=== PATIENT | female | born 1960 | race Caucasian/White ===

== ENCOUNTER → 2020-03-16 13:37 | Outpatient (BNVA) | payer OTHER, SELFPAY | PROVIDERS: PCP Family Medicine; Referring Provider Family Medicine; Visit Provider Physician Assistant | DX: K59.09 Other constipation (principal); Z86.010 Personal history of colon polyps; Z87.19 Personal history of other diseases of the digestive system | CPT/HCPCS: Q3014 ==

== ENCOUNTER 2020-05-03 08:39 | Day surgery (SDC) | payer OTHER, SELFPAY ==
[2020-04-25 11:26] VITALS: BMI 32.3
--- NOTE | 2020-05-02 12:42 | HO.ANESPROP2 ---
Documented by User: Richa Littlejohn 05/02/20 12:43 HPI - Anesthesia Eval Consult details Narrative: 60yo F for Colonoscopy PMFSH Past Medical History Medical History Asthma Chronic pain Colon polyp High cholesterol History of fatty infiltration of liver Hx of cervical cancer Hypothyroid Leukopenia Macular degeneration ANCA on CPAP Family History Family History Father No problems noted. Mother No problems noted. Daughter No problems noted. Son No problems noted. Surgical History Surgical History History of back surgery History of excision of mass History of total abdominal hysterectomy and bilateral salpingo-oophorectomy Hx of colonoscopy Hx of tubal ligation Social History Social History Household Members: None Alcohol intake: current Alcohol intake frequency: does not drink Smoking Status: Former smoker Smoking Quit Date: 1991 Use of substances other than those prescribed or required for medical reasons: No Advance Directives: No Advance Directives Information Provided: No Advance Directives on File: No Current occupational status: retired and disabled Meds Allergies Allergy/AdvReac Type Severity Reaction Status Date / Time No Known Allergies Allergy Verified 05/03/20 09:24 [No Known Allergies*] Home Medications Medication Instructions Recorded Confirmed Type acetaminophen 650 mg 650 mg PO Q8H PRN 03/16/20 05/03/20 History tablet,extended release albuterol sulfate 90 mcg/actuation 1 inh INHALATION QID 03/16/20 04/25/20 History aerosol inhaler aspirin 81 mg tablet,delayed 81 mg PO DAILY 03/16/20 04/25/20 History release atorvastatin 10 mg tablet 10 mg PO DAILY 03/16/20 04/25/20 History baclofen 20 mg tablet 20 mg PO DAILY 03/16/20 04/25/20 History bupropion HCl 300 mg 24 hr tablet, 300 mg PO QAM 03/16/20 04/25/20 History extended release calcium carbonate 600 mg (1,500 1 tab PO DAILY 03/16/20 History mg)-vitamin D3 400 unit tablet cholecalciferol (vitamin D3) 50 50 mcg PO DAILY 03/16/20 04/25/20 History mcg (2,000 unit) tablet diclofenac sodium 50 mg 50 mg PO DAILY 03/16/20 04/25/20 History tablet,delayed release docusate sodium 100 mg capsule 100 mg PO DAILY 03/16/20 04/25/20 History gabapentin 300 mg capsule 300 mg PO BID 03/16/20 04/25/20 History levothyroxine 112 mcg tablet 112 mcg PO DAILY 03/16/20 04/25/20 History loratadine 10 mg tablet 10 mg PO DAILY 03/16/20 04/25/20 History omega 9-trc-fdy-fish oil 300 1 cap PO DAILY 03/16/20 History mg-1,000 mg capsule omeprazole 20 mg capsule,delayed 20 mg PO DAILY 03/16/20 04/25/20 History release polyethylene glycol 3350 17 1 g PO DAILY 03/16/20 History gram/dose oral powder Exam Exam Date and Time: May 02, 2020 1242 Height,Weight and Vital Signs: Height 5 ft 10 in Weight 102.058 kg Assessment and Plan Assessment Anesthesia Assessment: Chart Reviewed Documented by User: Mercy Putnam 05/03/20 11:05 [facility] [place] Past Medical History Medical History Asthma Chronic pain Colon polyp High cholesterol History of fatty infiltration of liver Hx of cervical cancer Hypothyroid Leukopenia Macular degeneration ANCA on CPAP Family History Family History Father No problems noted. Mother No problems noted. Daughter No problems noted. Son No problems noted. Family history of problems with anesthesia: No Surgical History Surgical History History of back surgery History of excision of mass History of total abdominal hysterectomy and bilateral salpingo-oophorectomy Hx of colonoscopy Hx of tubal ligation History of Problems with Anesthesia: Yes (Slow awakening after hysterectomy) Social History Social History Household Members: None Alcohol intake: current Alcohol intake frequency: does not drink Smoking Status: Former smoker Smoking Quit Date: 1991 Use of substances other than those prescribed or required for medical reasons: No Advance Directives: No Advance Directives Information Provided: No Advance Directives on File: No Current occupational status: retired and disabled Meds Allergies Allergy/AdvReac Type Severity Reaction Status Date / Time No Known Allergies Allergy Verified 05/03/20 09:24 [No Known Allergies*] Home Medications Medication Instructions Recorded Confirmed Type acetaminophen 650 mg 650 mg PO Q8H PRN 03/16/20 05/03/20 History tablet,extended release albuterol sulfate 90 mcg/actuation 1 inh INHALATION QID 03/16/20 04/25/20 History aerosol inhaler aspirin 81 mg tablet,delayed 81 mg PO DAILY 03/16/20 04/25/20 History release atorvastatin 10 mg tablet 10 mg PO DAILY 03/16/20 04/25/20 History baclofen 20 mg tablet 20 mg PO DAILY 03/16/20 04/25/20 History bupropion HCl 300 mg 24 hr tablet, 300 mg PO QAM 03/16/20 04/25/20 History extended release calcium carbonate 600 mg (1,500 1 tab PO DAILY 03/16/20 History mg)-vitamin D3 400 unit tablet cholecalciferol (vitamin D3) 50 50 mcg PO DAILY 03/16/20 04/25/20 History mcg (2,000 unit) tablet diclofenac sodium 50 mg 50 mg PO DAILY 03/16/20 04/25/20 History tablet,delayed release docusate sodium 100 mg capsule 100 mg PO DAILY 03/16/20 04/25/20 History gabapentin 300 mg capsule 300 mg PO BID 03/16/20 04/25/20 History levothyroxine 112 mcg tablet 112 mcg PO DAILY 03/16/20 04/25/20 History loratadine 10 mg tablet 10 mg PO DAILY 03/16/20 04/25/20 History omega 2-dqb-xwq-fish oil 300 1 cap PO DAILY 03/16/20 History mg-1,000 mg capsule omeprazole 20 mg capsule,delayed 20 mg PO DAILY 03/16/20 04/25/20 History release polyethylene glycol 3350 17 1 g PO DAILY 03/16/20 History gram/dose oral powder Exam Height,Weight and Vital Signs: Vital Signs Temp Pulse Resp BP Pulse Ox 05/03/20 09:26 97.7 F 75 18 146/80 H 98 Pertinent Lab Results Pertinent Lab Results: Airway Mallampati Class: II TM Dist: >3cm Neck ROM: Full Partial: Upper and Lower Heart: RRR Lungs: CTAB Assessment and Plan Assessment Anesthesia Assessment: Anesthesia Plan Discussed and Chart Reviewed Final Anesthetic Review NPO: Yes ASA Class: III Final Preanesthetic Review: No Changes in Pt Med Stat, Meds/Allgs Chart Reviewed, Consent Obtained/Reviewed and Anes Risks/Benef Reviewed Patient Risk: Intermediate Procedure Risk: Low Assessment/Block/Sedation in SS: Assess/Block/Sedation-SS Anesthetic Plan Anesthetic Plan: MAC: Disposition: Standard PACU
[2020-05-03 09:26] VITALS: BP 146/80; PULSE 75; RESP 18; TEMP 36.5; O2SAT 98
[2020-05-03] MEDS: Lactated Ringers 1,000 ML 100 ML IVCONT (09:32)
--- NOTE | 2020-05-03 10:37 | W.PM.OPN ---
Operative Note Operative Note Date of Service: 05/03/20 Narrative: Pre-op diagnosis: Colon cancer screening, hx of colon polyps Post-op diagnosis: other (diverticulosis, hemorrhoids) Procedure: COLONOSCOPY TILL CECUM Consent: Indications for the procedure and potential complications of bleeding, perforation, reaction to medications and missed diagnosis were discussed with the patient and informed consent was obtained. Instrument: Olympus PCF H 190 L variable stiffness pediatric colonoscope Monitoring: Vital signs and clinical assessment, intermittent blood pressure monitoring, continuous EKG monitoring, Pulse oximetry and Carbon Dioxide monitoring were done throughout the procedure. Colon withdrawl time was 22 minutes. Procedure: The patient was placed in the left lateral decubitis position and pre-procedure medications were administered. After a digital rectal examination of the ano-rectum, the video colonoscope was inserted into the rectum and advanced through the colon to the cecum. The colonoscope was slowly withdrawn in a retrograde panoramic fashion and the colon mucosa was carefully examined including a retroflexed view of the rectum. Findings and interventions are described below. Procedure Difficulty: LLQ pressure applied to intubate the transverse colon/cecum Findings: Terminal Ileum: Not evaluated Cecum: Normal Ascending Colon: Normal Transverse Colon: Normal Descending Colon: Normal Sigmoid Colon: Moderate diverticulosis Rectum: Normal Ano-rectum: Moderate internal hemorrhoids Colon preparation: Good Impression and Post Procedure Diagnosis: Colonoscopy Findings: No polyps were detected. Moderate diverticulosis seen in the sigmoid colon Moderate hemorrhoids on retroflexed exam. Plan: Await pathology results Patient has an appointment on 05/11/19 in the [facility] with SUZIE Davenport . Repeat Colonoscopy in 5 years due to past hx of adenomatous colon polyps. Above findings were reviewed with the patient and diverticulosis handout was given in the discharge area Surgeon: Shiraz Mcdonough MD Anesthesia: MAC (Shelly Ge) Estimated blood loss (mL): 0 Pathology: none sent Condition: stable Disposition: PACU
--- NOTE | 2020-05-03 10:37 | MHC.SHP ---
Pre-Procedural Eval Section A The patient is an INPATIENT: No The History & Physical has been completed within 30 days and I have reviewed it.: No Section B Chief Complaint: Colon Polyps Details of Present Illness: colon cancer screening, hx of colon polyps, constipation Relevant Family History (Specify if Yes): No Relevant Social History: None Present Medications: see Short Stay Collaborative assessment Medical History: Significant History (Asthma Chronic pain Colon polyp) History of Previous Operations: Relevant previous surgery/procedure and date(s) (History of back surgery Hx of colonoscopy) Allergies: Allergies Allergy/AdvReac Type Severity Reaction Status Date / Time No Known Allergies Allergy Verified 05/03/20 09:24 [No Known Allergies*] Review of Systems Sugical H&P ROS: Negative: Constitution, Cardiovascular, Respiratory and Gastrointestinal Exam Surgical H&P Exam: Normal: Heart, Normal: Lungs, Normal: Extremities and Normal: Abdomen Plan Diagnosis/Plan: Unchanged I have reviewed the history and physical and performed a pertinent physical examination on my patient. No changes have occurred unless specified.
[2020-05-03 11:31] VITALS: BP 107/58; PULSE 75; RESP 16; TEMP 36.2; O2SAT 96
[2020-05-03 11:50] VITALS: BP 118/73; PULSE 70; RESP 20; TEMP 36.2; O2SAT 99
--- NOTE | 2020-05-03 12:05 | HO.POSTANES ---
Post Anesthesia Evaluation Post Anesthesia Evaluation Vital Signs: Vital Signs Temp Pulse Resp BP Pulse Ox 05/03/20 11:50 97.1 F 70 20 118/73 99 05/03/20 11:31 97.1 F 75 16 107/58 L 96 05/03/20 09:26 97.7 F 75 18 146/80 H 98 Anesthesia: Monitored Mental Status: Awake Pain Control: Satisfactory Nausea/Vomiting: None Hydration: Adequate Anesthesia-Related Issues: No Anes. Related Issues
== END 2020-05-03 12:05 | disposition home or self-care (01) ==
PROVIDERS: PCP Family Medicine; Visit Provider Internal Medicine Gastroenterology
PROC: 0DJD8ZZ Inspection of Lower Intestinal Tract, Via Natural or Artificial Opening Endoscopic (ICD-10-PCS; CPT 45378; principal; 2020-05-03 09:50)
DX: Z12.11 Encounter for screening for malignant neoplasm of colon (principal); Z86.010 Personal history of colon polyps; K57.30 Diverticulosis of large intestine without perforation or abscess without bleeding; K64.8 Other hemorrhoids; G47.33 Obstructive sleep apnea (adult) (pediatric); J45.909 Unspecified asthma, uncomplicated; D72.819 Decreased white blood cell count, unspecified; Z85.41 Personal history of malignant neoplasm of cervix uteri; Z87.891 Personal history of nicotine dependence; Z79.82 Long term (current) use of aspirin; Z79.899 Other long term (current) drug therapy
CPT/HCPCS: G0105

== ENCOUNTER → 2020-05-11 13:35 | Outpatient (BNVA) | payer OTHER, SELFPAY | PROVIDERS: PCP Family Medicine; Visit Provider Physician Assistant | DX: Z76.89 Persons encountering health services in other specified circumstances (principal) | CPT/HCPCS: Q3014 ==

== ENCOUNTER 2020-09-22 14:50 | Outpatient (REF) | payer OTHER, SELFPAY ==
--- NOTE | ~2020-09-22 | CT_ITS ---
EXAMINATION: CT CHEST WITHOUT CONTRAST CLINICAL INFORMATION: Solitary pulmonary nodule. COMPARISON: CT chest 04/08/2019. TECHNIQUE: Multidetector volumetric CT imaging of the chest was done. Axial MIP volume rendering provided. Sagittal and coronal reformatted images were obtained. This CT examination was performed using dose optimization techniques as appropriate, variously including the following: *Automated exposure control *Adjustment of mA and/or kV according to patient size (this includes techniques or standardized protocols for targeted exams where dose is matched to indication/reason for exam; i.e. extremities or head) *Use of iterative reconstruction technique DLP: 439 mGy-cm FINDINGS: HEAD OF PRECISION TARGETING: Unremarkable. LUNGS: There are small bilateral pulmonary nodules. The largest pulmonary nodules to mention a few, 4 mm nodule left lower lobe lateral segment image 211/5 and a 4 mm nodule right upper lobe axial image 160/5. There are 1 mm noncalcified nodules in left upper lobe and right lower lobe. The lungs are expanded without acute process. MEDIASTINUM: The thyroid lobes are symmetrical and normal. Heart size and the great vessels are normal caliber. No pericardial effusion seen. No abnormal-sized lymph node seen. PLEURA: There is no pleural effusion. No pleural mass or thickening. AXILLA: Small shotty bilateral axillary lymph nodes are seen. UPPER ABDOMEN: Visualized liver, spleen, pancreas and bilateral adrenal glands are unremarkable. OSSEOUS STRUCTURES: No lytic or sclerotic process seen. CT/CT chest wo con IMPRESSION: Stable bilateral pulmonary nodules. No new nodule seen.
== END 2020-09-22 14:51 | disposition home or self-care (01) ==
LOC: HO.CT 14:50
PROVIDERS: Visit Provider Family Medicine
DX: R91.1 Solitary pulmonary nodule (principal)
CPT/HCPCS: 71250

== ENCOUNTER 2020-10-07 15:32 | Outpatient (REF) | payer OTHER, SELFPAY ==
--- NOTE | ~2020-10-07 | MM_ITS ---
EXAMINATION: MM SCREENING DIGITAL BREAST TOMOSYNTHESIS, BILATERAL CLINICAL INFORMATION: Screening. Asymptomatic. The lifetime risk of breast cancer based on the Tyrer-Cuzick Model is 9%. COMPARISON: Mammography: 04/02/2019, 12/02/2017, 03/14/2017 TECHNIQUE: Digital breast tomosynthesis is performed in both the craniocaudal and mediolateral oblique views along with computer-aided detection (CAD). Synthesized 2D images are generated from the tomosynthesis. FINDINGS: There are scattered areas of fibroglandular density (ACR BI-RADS breast composition Category b). There is inhomogeneous asymmetric fibroglandular pattern similar to prior studies without developing density or interval mass or architectural abnormality. Scattered small nodularity anterior upper right breast and lower outer left breast are stable. There are no abnormal calcifications. Biopsy clip marker again noted posterior 5:00 right breast. The axilla and skin contours are unremarkable. MM/MM tomosynthesis screening BI IMPRESSION: No significant changes from prior studies. ASSESSMENT: BI-RADS 2: Benign RECOMMENDATION: Routine annual mammography screening. This patient's information was entered into a reminder system with a target due date for their next mammogram.
== END 2020-10-07 15:33 | disposition home or self-care (01) ==
LOC: HO.MAMMO 15:32
PROVIDERS: Visit Provider Family Medicine
DX: Z12.31 Encounter for screening mammogram for malignant neoplasm of breast (principal)
CPT/HCPCS: 77063; 77067

== ENCOUNTER 2021-02-14 14:28 | Outpatient (REF) | payer OTHER, SELFPAY ==
--- NOTE | ~2021-02-14 | MM_ITS ---
EXAMINATION: MM DIAGNOSTIC DIGITAL BREAST TOMOSYNTHESIS, LEFT US DIAGNOSTIC ULTRASOUND BREAST, LEFT CLINICAL INFORMATION: 1-2 month history palpable finding noted by patient 12:00 left breast several centimeters in length. Tenderness. The lifetime risk of breast cancer based on the Tyrer-Cuzick Model is 5%. COMPARISON: Mammography: 10/07/2020, 04/02/2019, 12/02/2017, 03/14/2017 TECHNIQUE: Digital breast tomosynthesis is performed in both the craniocaudal and mediolateral oblique views along with computer-aided detection (CAD). Synthesized 2D images are generated from the tomosynthesis. Ultrasound left breast is targeted to the area of clinical concern. Grayscale imaging and color Doppler are performed without and with harmonics. Patient is imaged supine and upright. Patient is able to point to area of concern at time of imaging. FINDINGS: There are scattered areas of fibroglandular density (ACR BI-RADS breast composition Category b). Parenchymal pattern is similar to prior studies. There is no interval mass or architectural abnormality. No abnormal calcifications. No skin thickening or coarsening of the Andrés's ligaments. No significant changes. Ultrasound demonstrates no cystic or solid mass or architectural abnormality. No focal duct ectasia. No skin thickening or edema tracking in soft tissue planes. Results are discussed with the patient and her daughter at time of visit. There is no imaging correlate for patient's symptoms. Patient should be managed based on the clinical impression. If clinically indicated, further evaluation may be considered with surgical consult. Decision to proceed with biopsy should be based on clinical grounds and degree of clinical concern. MM/MM tomosynthesis diagnostic LT IMPRESSION: 1. No significant mammographic changes from prior studies. 2. Unremarkable targeted left breast ultrasound. ASSESSMENT: BI-RADS 1: Negative RECOMMENDATION: 1. Patient should be managed based on the clinical impression. If clinically indicated, further evaluation may be considered with surgical consult. Decision to proceed with biopsy should be based on clinical grounds and degree of clinical concern. 2. Otherwise, routine annual screening mammography. This patient's information was entered into a reminder system with a target due date for their next mammogram.
== END 2021-02-14 14:29 | disposition home or self-care (01) ==
LOC: HO.MAMMO 14:28
PROVIDERS: Visit Provider Family Medicine
DX: N63.25 Unspecified lump in the left breast, overlapping quadrants (principal)
CPT/HCPCS: 76642; 77061; 77065

== ENCOUNTER 2021-02-27 09:56 | Outpatient (REF) | payer OTHER, SELFPAY ==
--- NOTE | ~2021-02-27 | MR_ITS ---
EXAMINATION: MR LUMBAR SPINE WITHOUT AND WITH CONTRAST CLINICAL INFORMATION: 61-year-old with complaints of low back pain and lumbar radicular symptoms. History of previous laminectomy. COMPARISON: None. TECHNIQUE: MRI of the lumbar spine was obtained using routine sequences with and without contrast. Intravenous contrast: Gadavist 10 mL FINDINGS: Coronal Alignment: There is S-shaped thoracolumbar scoliosis, convex to the left at L4-L5 and to the right at L2-L3 with partially visualized lower thoracic levocurvature. Sagittal Alignment: There is 2 mm of grade 1 spondylolisthesis at L5-S1. There is trace retrolisthesis at L2-L3 and L1-L2. Lordotic curvature is maintained. Lumbosacral Junction: Normal. Vertebral Bodies: Mild chronic loss of height of the posterior aspect of the L5 vertebral body is noted. Otherwise the remaining vertebral body heights are well-maintained. Disc Spaces and Endplates: Moderate disc space height loss with intradiscal degenerative signal changes, including probable intradiscal vacuum disc phenomenon noted at L5-S1 with hfec-gn-klqnwupc spondylosis and Schmorl's nodes. Severe disc space height loss asymmetric to the left at L2-L3 with intradiscal degenerative signal changes and probable intradiscal vacuum disc phenomenon with Schmorl's nodes and bvsw-ye-ntpaowhb spondylosis. Moderate disc space height loss, intradiscal degenerative signal changes and probable intradiscal vacuum disc phenomenon at L1-L2 with Schmorl's nodes and mild spondylosis. Spinal Canal: There is moderate diffuse epidural lipomatosis throughout the lumbar canal with a constricted, narrowed appearance to the thecal sac and short pedicles consistent with a component of a developmental lumbar spinal canal stenosis. Bone Marrow: Type I marrow signal changes along the endplates at L1-L2, type I and type II marrow signal changes along the endplates at L2-L3. Mild marrow edema noted in the right S1 pedicle adjacent to the facet joint. Conus Medullaris: Terminates at L1-L2. Morphology and signal is normal. No abnormal enhancement. Intradural Nerve Roots: Limited assessment due to motion artifact on the axial T2-weighted images. No abnormal intradural enhancement. L5-S1: Mild grade 1 spondylolisthesis noted with evidence of a previous left-sided hemilaminectomy, with enhancing scar tissue in the left laminectomy defect. Prominent epidural fat at this level with a relatively small thecal sac. Unroofing of the posterior disc margin is noted with diffuse disc bulging and paravertebral/posterolateral disc osteophyte complex bilaterally. There is evidence of a partial facetectomy on the left. There is moderate facet arthropathy on the right. There is severe bilateral neural foraminal stenosis with bilateral L5 nerve root impingement. L4-L5: Mild disc bulging noted, with moderate facet arthropathy and ligamentum flavum thickening with epidural lipomatosis and moderate fatty spinal stenosis. There is bilateral facet arthrosis, with right lateral disc osteophyte complex and moderate right-sided with mild left-sided neural foraminal stenosis. There is a small enhancing synovial cyst arising along the posteroinferior margin of the left facet joint. L3-L4: There are small inferior foraminal disc protrusions noted bilaterally with ligamentum flavum thickening and moderate bilateral facet hypertrophic degenerative change with epidural lipomatosis and mild fatty spinal stenosis. There is moderate right-sided and mild left-sided neural foraminal stenosis. L2-L3: Trace retrolisthesis noted with posterolateral disc osteophyte complex asymmetric to the left with a superimposed left foraminal/extra foraminal disc herniation. Ligamentum flavum thickening is noted with moderate left-sided facet arthropathy. Prominent epidural fat is also noted with mild central spinal canal stenosis. There is moderate left and mild right-sided neural foraminal stenosis, with disc herniation impinging on the exiting left L2 nerve root. L1-L2: There are subarticular disc protrusion bilaterally and small left foraminal disc protrusion with mild ligamentum flavum thickening and mild facet arthrosis. Prominent epidural fat posteriorly. No significant spinal canal stenosis. There is moderate left-sided and iegu-hw-yudxflci right-sided neural foraminal stenosis. There is ltre-yl-krczsgoc facet arthropathy on the right at T12-L1 with mild ligamentum flavum thickening without canal or neuroforaminal stenosis. There is bilateral facet arthrosis at T11-T12 and T10-T11 with moderate right-sided neural foraminal stenosis and mild left-sided neural foraminal stenosis at these levels. Paraspinal/Retroperitoneal: The paravertebral soft tissues demonstrate postsurgical changes posterior to the lumbar spinous processes. There is a 1 cm simple-appearing cyst in the mid right kidney. Limited assessment. No specific follow-up for this is recommended based on the current ACR best practice guidelines. MR/MR lumbar spine wo/w con IMPRESSION: 1. Multilevel DDD and spondylosis, with the grade 1 spondylolisthesis at L5-S1 and mild retrolisthesis at L1-L2 and L2-L3. 2. Postsurgical changes on the left at L5-S1 as described above. 3. Epidural lipomatosis throughout the lumbar canal with some degree of developmental lumbar spinal canal stenosis with superimposed multilevel disc bulging and posterior element hypertrophic degenerative changes as described above, with zngu-hb-wrikocer degrees of spinal canal stenosis. 4. Multilevel bilateral neural foraminal stenosis, severe bilaterally at L5-S1 with bilateral L5 nerve root impingement and to a lesser degree at the levels noted above. Left lateral foraminal/extraforaminal disc herniation at L2-L3 encroaches on the exiting left L2 nerve root.
[2021-02-27 10:25] LABS: Blood Urea Nitrogen 20 mg/dL (9-16); Estimated Glomerular Filt Rate 56
== END 2021-02-27 09:57 | disposition home or self-care (01) ==
LOC: HO.MRI 09:56
PROVIDERS: Visit Provider Family Medicine
DX: Z00.00 Encounter for general adult medical examination without abnormal findings (principal); R32 Unspecified urinary incontinence; K76.0 Fatty (change of) liver, not elsewhere classified; E78.5 Hyperlipidemia, unspecified; M54.16 Radiculopathy, lumbar region
CPT/HCPCS: 36415; 72158; 82565; 84520; A9585

== ENCOUNTER 2021-11-09 15:07 | Outpatient (REF) | payer OTHER, SELFPAY ==
--- NOTE | ~2021-11-09 | XR_ITS ---
EXAMINATION: XR ELBOW, RIGHT CLINICAL INFORMATION: Pain and swelling. COMPARISON: None TECHNIQUE: AP, lateral, and oblique views of the right elbow. FINDINGS: The bones and soft tissues are normal. No fracture or joint effusion. Alignment is anatomic. Joint spaces are maintained. XR/XR elbow RT min 3V IMPRESSION: Normal right elbow.
--- NOTE | ~2021-11-09 | CT_ITS ---
EXAMINATION: CT CHEST WITHOUT CONTRAST CLINICAL INFORMATION: Follow-up pulmonary nodules COMPARISON: CT chest 09/22/2020 TECHNIQUE: Multidetector volumetric CT imaging of the chest was done. Axial MIP volume rendering provided. Sagittal and coronal reformatted images were obtained. This CT examination was performed using dose optimization techniques as appropriate, variously including the following: *Automated exposure control *Adjustment of mA and/or kV according to patient size (this includes techniques or standardized protocols for targeted exams where dose is matched to indication/reason for exam; i.e. extremities or head) *Use of iterative reconstruction technique DLP: 199 mGy-cm FINDINGS: PERSONAL COACH: Well-inflated lungs. LUNGS: The lungs are well Inflated without any acute pneumonic process. There are several small pulmonary nodules seen bilaterally. The largest nodule measures 4 mm in the lingula on axial image 251/7 and not in the left lower lobe as mentioned previously it is stable. A 4 mm nodule is seen in the right upper lobe axial image 179/7, stable. There are 1-2 mm calcified and noncalcified nodules in both lungs. No new nodules are visualized. MEDIASTINUM: Heart size and the great vessels are normal caliber. No abnormal size mediastinal or hilar lymph nodes seen. There is no pericardial effusion. The central trachea and the bronchi R widely patent. The thyroid lobes are symmetrical and normal. PLEURA: There is no pleural effusion. No pleural mass or thickening. AXILLA: No lymphadenopathy. UPPER ABDOMEN: Visualized liver, spleen, pancreas, gallbladder and left adrenal gland is unremarkable OSSEOUS STRUCTURES: Degenerative disc changes at all thoracic disc levels. No aggressive lytic or sclerotic process seen. CT/CT chest wo con IMPRESSION: Stable bilateral pulmonary nodules. No new pulmonary nodules. No abnormal chest adenopathy. Fleischner guidelines were followed.
== END 2021-11-09 15:08 | disposition home or self-care (01) ==
LOC: HO.CT 15:07
PROVIDERS: Absent Provider Nurse Practitioner; PCP Nurse Practitioner; Visit Provider Family Medicine
DX: M25.521 Pain in right elbow (principal); R91.1 Solitary pulmonary nodule; R60.0 Localized edema
CPT/HCPCS: 71250; 73080

== ENCOUNTER 2021-11-24 08:02 | Outpatient (REF) | payer OTHER, SELFPAY ==
--- NOTE | ~2021-11-24 | US_ITS ---
EXAMINATION: US ABDOMEN COMPLETE CLINICAL INFORMATION: Fatty liver. COMPARISON: Ultrasound abdomen complete dated 04/16/2019 and 12/07/2016. CT abdomen and pelvis with contrast dated 08/14/2018. TECHNIQUE: Real-time imaging of the abdominal viscera. FINDINGS: PANCREAS: The head and body the pancreas are normal. The tail is well visualized due to bowel gas. ABDOMINAL AORTA: The proximal, mid, and distal segments are normal in caliber. INFERIOR VENA CAVA: Visualized portions are normal. LIVER: Liver echotexture is slightly increased. The liver is normal in size. The liver contour is normal. No focal hepatic lesion. There is no intrahepatic biliary duct dilatation seen. GALLBLADDER: Normal. The gallbladder is physiologically distended without evidence of stones, sludge, polyps, wall thickening or pericholecystic fluid. COMMON BILE DUCT: Normal in caliber measuring 0.6 cm in diameter. RIGHT KIDNEY: There are 2 cysts measuring 1 cm in the lower pole and 1.2 cm in the midpole. No hydronephrosis or renal calculi. The kidney measures 10.9 cm in maximum dimension. LEFT KIDNEY: There are 3 cysts measuring 1.6 cm in the upper pole, 1 cm in the upper pole and 1.2 cm in the lower pole and No hydronephrosis or renal calculi. The kidney measures 11.0 cm in maximum dimension. SPLEEN: Normal. The spleen measures 10.9 cm in maximum dimension. FREE FLUID: None. US/US abdomen complete IMPRESSION: Slightly echogenic liver. Limited visualization of the tail the pancreas. Bilateral renal cysts.
== END 2021-11-24 08:03 | disposition home or self-care (01) ==
LOC: HO.US 08:02
PROVIDERS: Visit Provider Family Medicine
DX: K76.0 Fatty (change of) liver, not elsewhere classified (principal)
CPT/HCPCS: 76700

== ENCOUNTER 2021-12-08 07:50 | Outpatient (REF) | payer OTHER, SELFPAY | END 2021-12-08 07:51 | disposition home or self-care (01) | LOC: HO.HOSX 07:50 | PROVIDERS: Visit Provider Physician Assistant | DX: Z13.89 Encounter for screening for other disorder (principal) ==

== ENCOUNTER 2022-02-19 13:04 | Outpatient (REF) | payer OTHER, SELFPAY ==
--- NOTE | ~2022-02-19 | MM_ITS ---
EXAMINATION: MM SCREENING DIGITAL BREAST TOMOSYNTHESIS, BILATERAL CLINICAL INFORMATION: Screening. Asymptomatic. The lifetime risk of breast cancer based on the Tyrer-Cuzick Model is 10%. COMPARISON: Mammography: February 14, 2021 and studies dating back to December 31, 2013 TECHNIQUE: Digital breast tomosynthesis is performed in both the craniocaudal and mediolateral oblique views along with computer-aided detection (CAD). Synthesized 2D images are generated from the tomosynthesis. FINDINGS: There are scattered areas of fibroglandular density (ACR BI-RADS breast composition Category b). There are no significant masses, abnormal calcifications, or other abnormalities. MM/MM tomosynthesis screening BI IMPRESSION: No significant changes from prior exam. ASSESSMENT: BI-RADS 1: Negative RECOMMENDATION: Routine annual mammography screening. This patient's information was entered into a reminder system with a target due date for their next mammogram.
== END 2022-02-19 13:05 | disposition home or self-care (01) ==
LOC: HO.MAMMO 13:04
PROVIDERS: PCP Family Medicine; Visit Provider Family Medicine
DX: Z12.31 Encounter for screening mammogram for malignant neoplasm of breast (principal)
CPT/HCPCS: 77063; 77067

== ENCOUNTER 2022-05-23 14:53 | Emergency (ER) | payer OTHER, SELFPAY ==
--- NOTE | ~2022-05-23 | XR_ITS ---
EXAMINATION: XR CHEST CLINICAL INFORMATION: Cough. Sputum production. COMPARISON: 11/18/2016 TECHNIQUE: 2 views of the chest were obtained. FINDINGS: The lungs are well expanded. There is no focal consolidation, edema, or effusion. No pneumothorax. The cardiomediastinal silhouette is within normal limits. No acute osseous abnormality. XR/XR chest 2V IMPRESSION: Clear lungs.
[2022-05-23 15:10] VITALS: BP 136/76; PULSE 85; RESP 18; TEMP 36.8; O2SAT 97; BMI 31.4
--- NOTE | 2022-05-23 15:11 | ED_ITS ---
HPI - URI/Sore Throat General Chief Complaint: Upper Respiratory Symptoms <SUZIE Goodwin Last Filed: 05/23/22 15:14> Stated Complaint: congested cough,sore throat <SUZIE Goodwin Last Filed: 05/23/22 15:14> Time Seen by Provider: 05/23/22 15:25 <SUZIE Goodwin - Last Filed: 05/23/22 15:14> Source: patient <SUZIE Alejandra Last Filed: 05/23/22 18:54> Mode of arrival: ambulatory <SUZIE Alejandra Last Filed: 05/23/22 18:54> History of Present Illness HPI Narrative: 62-year-old female with a past medical history of asthma, HLD, hypothyroid, cervical CA in remission, intermittent leukopenia, ANCA on CPAP, presenting to the ED complaining of malaise, congestion, ear pain, sore throat, subjective fever, productive cough of green/yellow sputum x 1 month. Denies SOB, CP, abdominal pain, nausea/ vomiting, decreased p.o. intake, calf pain, pedal edema, recent travel. Admits had outpatient labs recently with Dr. Redman <SUZIE Alejandra - Last Filed: 05/23/22 18:54> MD elicited complaint: fever, cough, sore throat, rhinorrhea and nasal congestion <SUZIE Alejandra Last Filed: 05/23/22 18:54> Related Data Home Medications: Home Medications Medication Instructions Recorded Confirmed acetaminophen 650 mg 650 mg PO Q8H PRN pain 03/16/20 05/21/22 tablet,extended release albuterol sulfate 90 mcg/actuation 1 inh inhalation QID 03/16/20 05/21/22 aerosol inhaler aspirin 81 mg tablet,delayed 81 mg PO DAILY 03/16/20 05/21/22 release atorvastatin 10 mg tablet 10 mg PO DAILY 03/16/20 05/21/22 baclofen 20 mg tablet 20 mg PO DAILY 03/16/20 05/21/22 bupropion HCl 300 mg 24 hr tablet, 300 mg PO QAM 03/16/20 05/21/22 extended release calcium carbonate 600 mg-vitamin 1 tab PO DAILY 03/16/20 05/21/22 D3 10 mcg (400 unit) tablet cholecalciferol (vitamin D3) 50 50 mcg PO DAILY 03/16/20 05/21/22 mcg (2,000 unit) tablet diclofenac sodium 50 mg 50 mg PO DAILY 03/16/20 05/21/22 tablet,delayed release docusate sodium 100 mg capsule 100 mg PO DAILY 03/16/20 05/21/22 (Colace) gabapentin 300 mg capsule 300 mg PO BID 03/16/20 05/21/22 levothyroxine 112 mcg tablet 125 mcg PO DAILY 03/16/20 05/21/22 loratadine 10 mg tablet 10 mg PO DAILY 03/16/20 05/21/22 omega 3-xpi-vwr-fish oil 300 1 cap PO DAILY 03/16/20 05/21/22 mg-1,000 mg capsule polyethylene glycol 3350 17 1 g PO DAILY constipation 03/16/20 05/21/22 gram/dose oral powder Centrum Silver 1 tab PO DAILY 08/18/20 05/21/22 antiox.multivit 10-rcaww2a 280 1 cap PO DAILY 08/18/20 05/21/22 mg-lutein 10 mg-zeaxanthin 2 mg capsule (I-Caps) pantoprazole 40 mg tablet,delayed 40 mg PO DAILY 05/21/22 05/21/22 release Previous Rx's Medication Instructions Recorded amoxicillin 875 mg-potassium 1 tab PO BID 7 days #14 tabs 05/23/22 clavulanate 125 mg tablet benzonatate 100 mg capsule 100 mg PO TID PRN cough #14 caps 05/23/22 fluticasone propionate 50 2 spray intranasal DAILY #16 grams 05/23/22 mcg/actuation nasal spray,suspension (Flonase Allergy Relief) prednisone 20 mg tablet 40 mg PO DAILY 5 days #10 tabs 05/23/22 <SUZIE Goodwin - Last Filed: 05/23/22 15:14> Allergies/Adverse Reactions: Allergies Allergy/AdvReac Type Severity Reaction Status Date / Time No Known Allergies Allergy Verified 05/21/22 10:26 [No Known Allergies*] <SUZIE Goodwin - Last Filed: 05/23/22 15:14> Review of Systems Review of Systems: Constitutional: +subj Fever, + Chills, +malaise, +fatigue ENT/Mouth: No Ear Pain, + Nasal Congestion, No Sinus Pain, No Hoarseness, + sore throat, + Rhinorrhea, No Swallowing Difficulty Cardiovascular: No Chest Pain, No SOB Respiratory: + Cough, + Sputum, No Wheezing Gastrointestinal: No Nausea, No Vomiting, No Diarrhea, No Constipation, No Abdominal pain Genitourinary: No Dysuria, No Flank Pain Musculoskeletal: No joint pain, No Myalgias, No Joint Swelling Skin: No Skin Lesions, No rash Neuro: No Weakness <SUZIE Alejandra - Last Filed: 05/23/22 18:54> Yes all other systems are reviewed and are negative <SUZIE Alejandra - Last Filed: 05/23/22 18:54> Constitutional: Constitutional: Reports as per HPI <SUZIE Alejandra - Last Filed: 05/23/22 18:54> [facility] Past Medical History Attestation statement: The following information was validated with the patient. <SUZIE Alejandra Last Filed: 05/23/22 18:54> Medical History: Medical History Asthma Chronic pain Colon polyp High cholesterol History of fatty infiltration of liver Hx of cervical cancer Hypothyroid Leukopenia Macular degeneration ANCA on CPAP <SUZIE Goodwin - Last Filed: 05/23/22 15:14> Surgical History: Surgical History History of back surgery History of excision of mass History of total abdominal hysterectomy and bilateral salpingo-oophorectomy Hx of colonoscopy Hx of tubal ligation <SUZIE Goodwin - Last Filed: 05/23/22 15:14> Family History Family History: Family History Father No problems noted. Mother No problems noted. Daughter No problems noted. Son No problems noted. Sister Breast cancer Colon cancer Brother Liver cancer Brother Cancer of kidney <SUZIE Goodwin - Last Filed: 05/23/22 15:14> Social History Social History: Social History Household Members: Family Housing: Apartment Are you a primary acute care assistant to a significant other at home: No Do you presently have visiting nurse or other home services: No Alcohol intake: current Alcohol intake frequency: does not drink Patient Tobacco Use Status: Never used Tobacco Advance Directives: No Advance Directives Information Provided: Yes Current occupational status: retired and disabled <SUZIE Goodwin - Last Filed: 05/23/22 15:14> Physical Exam Vital Signs: Vital Signs: Last Vital Signs Temp 98.3 F 05/23/22 15:10 Pulse 85 05/23/22 15:10 Resp 18 05/23/22 15:10 BP 136/76 05/23/22 15:10 Pulse Ox 97 05/23/22 15:10 O2 Del Method 05/23/22 15:10 BMI result Body Mass Index 31.4 <SUZIE Goodwin - Last Filed: 05/23/22 15:14> Vital Signs: Last Vital Signs Temp 98.3 F 05/23/22 15:10 Pulse 85 05/23/22 15:10 Resp 18 05/23/22 15:10 BP 136/76 05/23/22 15:10 Pulse Ox 97 05/23/22 15:10 O2 Del Method 05/23/22 15:10 BMI result Body Mass Index 31.4 <SUZIE Alejandra - Last Filed: 05/23/22 18:54> Const: General: cooperative, healthy appearing, comfortable, no acute distress, alert and awake <SUZIE Alejandra Last Filed: 05/23/22 18:54> Orientation/consciousness: patient oriented x3 <SUZIE Alejandra Last Filed: 05/23/22 18:54> Limitations: no limitations <SUZIE Alejandra Last Filed: 05/23/22 18:54> HEENT: Head: Yes normal to inspection and Yes atraumatic <SUZIE Alejandra Last Filed: 05/23/22 18:54> Ears: hearing grossly normal bilaterally, external ears normal, TM's normal bilaterally and mastoids normal <SUZIE Alejandra Last Filed: 05/23/22 18:54> General nose exam: Normal external nose present and Nasal discharge present <SUZIE Alejandra Last Filed: 05/23/22 18:54> Face and sinus: Yes normal facial exam <SUZIE Alejandra - Last Filed: 05/23/22 18:54> Mouth: Normal oral and palatal mucosa present <SUZIE Alejandra - Last Filed: 05/23/22 18:54> Throat: Yes uvula midline, No peritonsillar mass, Yes posterior oropharynx abnormal ( erythematous) and No uvular edema <SUZIE Alejandra - Last Filed: 05/23/22 18:54> Eyes: General: appearance normal, both eyes and all related structures <Brenda Mckeon PA - Last Filed: 05/23/22 18:54> EOM: EOMs intact bilaterally <Brenda Mckeon PA - Last Filed: 05/23/22 18:54> Neck: Neck: Yes normal visual inspection and Yes no meningeal signs <SUZIE Alejandra - Last Filed: 05/23/22 18:54> Resp: Effort & Inspection: normal respiratory effort and no respiratory distress <SUZIE Alejandra - Last Filed: 05/23/22 18:54> Auscultation: clear to auscultation bilaterally, no crackles, no rales, no rhonchi and no wheezes <Brenda Mckeon PA - Last Filed: 05/23/22 18:54> Cardio: Rate: regular rate <SUZIE Alejandra - Last Filed: 05/23/22 18:54> Heart sounds: S1 normal heart sound present and S2 normal heart sound present <SUZIE Alejandra - Last Filed: 05/23/22 18:54> Skin: Rashes: no rashes <Brenda Mckeon PA - Last Filed: 05/23/22 18:54> Wounds: no wounds <Brenda Mckeon PA - Last Filed: 05/23/22 18:54> Neuro: General: patient oriented x3, tone normal and no meningeal signs <SUZIE Alejandra - Last Filed: 05/23/22 18:54> Gait exam (Neuro): Normal gait present <SUZIE Alejandra - Last Filed: 05/23/22 18:54> Extrem: General: Yes normal to inspection, Yes no pedal edema and Yes no calf tenderness <SUZIE Alejandra - Last Filed: 05/23/22 18:54> Course Course Course Narrative: RME- 15:15pm 62yoF presenting to the ER with URI complaints which include chills, fatigue, malaise, nasal congestion/rhinorrhea, headaches, sore throat, productive cough for the past month which is worsening. Denies any actual measured fevers, dizziness, neck pain/stiffness, shortness of breath, chest pain, dyspnea on exertion, orthopnea, palpitations, nausea/vomiting/diarrhea, abdominal pain, lower extremity edema or calf tenderness, recent travel or sick contact or any other symptoms complaints or concerns. Plan: Will obtain chest x-ray, COVID/RSV/flu swab and rapid strep. Patient will be seen in emergency minor care. <SUZIE Goodwin - Last Filed: 05/23/22 15:14> RME- 15:15pm 62yoF presenting to the ER with URI complaints which include chills, fatigue, malaise, nasal congestion/rhinorrhea, headaches, sore throat, productive cough for the past month which is worsening. Denies any actual measured fevers, dizziness, neck pain/stiffness, shortness of breath, chest pain, dyspnea on ex ertion, orthopnea, palpitations, nausea/vomiting/diarrhea, abdominal pain, lower extremity edema or calf tenderness, recent travel or sick contact or any other symptoms complaints or concerns. Plan: Will obtain chest x-ray, COVID/RSV/flu swab and rapid strep. Patient will be seen in emergency minor care. -1620-- COVID-19/influenza/ RSV negative. Rapid strep positive. Patient given 1st dose of Augmentin and prednisone in the ED XR chest 2V IMPRESSION: Clear lungs. Results discussed with patient including worrisome signs and symptoms and strict return precautions, and when to return to the emergency department. They verbalized understanding and feel safe for discharge at this time. <SUZIE Alejandra - Last Filed: 05/23/22 18:54> Medications Administered Discontinued Medications Generic Name Dose Route Start Last Admin Trade Name Freq PRN Reason Stop Dose Admin Amoxicillin/Clavulanate Potassium 875 mg 05/23/22 15:48 05/23/22 15:52 Amoxicillin/Potassium Clav 875 Mg Tablet PO 05/23/22 15:49 875 mg ONCE ONE Administration Prednisone 40 mg 05/23/22 15:48 05/23/22 15:52 Prednisone 20 Mg Tablet PO 05/23/22 15:49 40 mg ONCE ONE Administration <SUZIE Goodwin - Last Filed: 05/23/22 15:14> Medications Administered Discontinued Medications Generic Name Dose Route Start Last Admin Trade Name Ginny PRN Reason Stop Dose Admin Amoxicillin/Clavulanate Potassium 875 mg 05/23/22 15:48 05/23/22 15:52 Amoxicillin/Potassium Clav 875 Mg Tablet PO 05/23/22 15:49 875 mg ONCE ONE Administration Prednisone 40 mg 05/23/22 15:48 05/23/22 15:52 Prednisone 20 Mg Tablet PO 05/23/22 15:49 40 mg ONCE ONE Administration <SUZIE Alejandra - Last Filed: 05/23/22 18:54> Medical Decision Making Medical Decision Making [facility] Narrative: 62-year-old female with a past medical history of asthma, HLD, hypothyroid, cervical CA in remission, intermittent leukopenia, ANCA on CPAP, presenting to the ED complaining of malaise, congestion, ear pain, sore throat, subjective fever, productive cough of green/yellow sputum x 1 month. On exam vital signs stable, NAD, nontoxic appearing, oropharynx mildly erythematous, uvula midline, lungs CTA, no pedal edema/calf tenderness. Concern for viral illness vs bronchitis vs strep pharyngitis. R/o PNA. No evidence of [employer] outpatient labs reviewed from 05/21 which were unremarkable plan: CXR, COVID-19/influenza/ RSV testing, rapid strep <SUZIE Alejandra - Last Filed: 05/23/22 18:54> Differential Diagnosis Differential Diagnoses: The differential diagnosis associated with the presentation includes <SUZIE Alejandra - Last Filed: 05/23/22 18:54> as above <SUZIE Alejandra Last Filed: 05/23/22 18:54> Lab Data [facility] Lab Attestation statement: I reviewed the patient's lab results. <SUZIE Alejandra Last Filed: 05/23/22 18:54> Labs: Lab Results 05/23/22 05/23/22 Range/Units 15:15 15:15 Influenza Type A (PCR) NEGATIVE (Negative) Influenza Type B (PCR) NEGATIVE (Negative) RSV RNA Qual (PCR) NEGATIVE (Negative) SARS-CoV-2 RNA (RT-PCR) NEGATIVE (Negative) S. pyogenes GrpA JUANJO Positive A (Negative) <SUZIE Goodwin - Last Filed: 05/23/22 15:14> Lab Results 05/23/22 05/23/22 Range/Units 15:15 15:15 Influenza Type A (PCR) NEGATIVE (Negative) Influenza Type B (PCR) NEGATIVE (Negative) RSV RNA Qual (PCR) NEGATIVE (Negative) SARS-CoV-2 RNA (RT-PCR) NEGATIVE (Negative) S. pyogenes GrpA JUANJO Positive A (Negative) <SUZIE Alejandra - Last Filed: 05/23/22 18:54> Radiology Impression Discussion of test interpretation with radiology: I have reviewed the radiologist's reading. <SUZIE Alejandra - Last Filed: 05/23/22 18:54> External Record Review External record reviewed: Inpatient record, Office record, Outpatient record, Prior outpatient labs, Prior outpatient radiology and Outside ED record <SUZIE Alejandra - Last Filed: 05/23/22 18:54> Prescription Management I considered prescription management with: Antiviral and Antibiotic <SUZIE Alejandra - Last Filed: 05/23/22 18:54> Discharge Plan Discharge Clinical Impression: Acute streptococcal pharyngitis, Bronchitis <SUZIE Goodwin - Last Filed: 05/23/22 15:14> Patient Disposition: Home, Self-Care <SUZIE Goodwin - Last Filed: 05/23/22 15:14> Instructions: Pharyngitis (ED), Acute Bronchitis (ED) <SUZIE Goodwin - Last Filed: 05/23/22 15:14> Additional Instructions: you have strep throat. In addition we are treating for bronchitis. Her x-ray does not show pneumonia. He tested negative for COVID, the flu, and RSV Augmentin is an antibiotic please take as prescribed. In addition take prednisone. Luis Guadalupe for cough Flonase as a nasal decongestant Please have close follow-up with her doctor If symptoms persist or worsen return to the emergency department usted fannie faringitis estreptoc?cica. Adem?s estamos tratando de bronquitis. Lepe radiograf?a no muestra neumon?a. Lan negativo para COVID, gripe y RSV. Augmentin es un antibi?brianne, t?foster seg?n lo prescrito. Adem?s tome prednisona. Tesalon Perles para la tos Flonase connie descongestionante nasal Por favor, tenga un seguimiento cercano con lepe m?dico. Si los s?ntomas persisten o empeoran, regrese al servicio de urgencias. <SUZIE Goodwin - Last Filed: 05/23/22 15:14> Prescriptions: New prednisone 20 mg tablet 40 mg PO DAILY 5 Days Qty: 10 0RF benzonatate 100 mg capsule 100 mg PO TID PRN (Reason: cough) Qty: 14 0RF fluticasone propionate [Flonase Allergy Relief] 50 mcg/actuation spray,suspension 2 spray intranasal DAILY Qty: 16 0RF Rx Instructions: administer into each nostril amoxicillin-pot clavulanate 875-125 mg tablet 1 tab PO BID 7 Days Qty: 14 0RF No Action I-Caps 280-10-2 mg Capsule 1 cap PO DAILY Centrum Silver 1 tab PO DAILY pantoprazole 40 mg Tablet,Delayed Release (Dr/Ec) 40 mg PO DAILY diclofenac sodium 50 mg tablet,delayed release (DR/EC) 50 mg PO DAILY bupropion HCl 300 mg tablet extended release 24 hr 300 mg PO QAM gabapentin 300 mg capsule 300 mg PO BID baclofen 20 mg tablet 20 mg PO DAILY levothyroxine 112 mcg tablet 125 mcg PO DAILY docusate sodium [Colace] 100 mg capsule 100 mg PO DAILY albuterol sulfate 90 mcg/actuation HFA aerosol inhaler 1 inh inhalation QID atorvastatin 10 mg tablet 10 mg PO DAILY loratadine 10 mg tablet 10 mg PO DAILY omega 8-irp-unr-fish oil 300-1,000 mg capsule 1 cap PO DAILY polyethylene glycol 3350 17 gram/dose powder 1 g PO DAILY acetaminophen 650 mg tablet extended release 650 mg PO Q8H PRN (Reason: pain) calcium carbonate-vitamin D3 600 mg(1,500mg) -400 unit tablet 1 tab PO DAILY aspirin 81 mg tablet,delayed release (DR/EC) 81 mg PO DAILY cholecalciferol (vitamin D3) 50 mcg (2,000 unit) tablet 50 mcg PO DAILY <SUZIE Goodwin - Last Filed: 05/23/22 15:14> Referrals: C[place] DO [Primary Care Provider] - 3 days <SUZIE Goodwin - Last Filed: 05/23/22 15:14> Interventions: ED Discharge Assessment Last Done: 05/23/22 16:29 <SUZIE Goodwin - Last Filed: 05/23/22 15:14> Discharge Date/Time: 05/23/22 16:31 <SUZIE Goodwin - Last Filed: 05/23/22 15:14>
[2022-05-23 15:28] LABS: IDNOW Serial# 6674DD1D; Strep A Nucleic Acid Positive (Negative)
[2022-05-23] MEDS: Amoxicillin/Potassium Clav 875 MG TABLET PO (15:52)
[2022-05-23] MEDS: predniSONE 20 MG TABLET 40 MG PO (15:52)
[2022-05-23 16:03] LABS: Influenza A PCR NEGATIVE (Negative); Influenza B PCR NEGATIVE (Negative); Resp Syncy Virus RNA Qual PCR NEGATIVE (Negative); SARS COV2 PCR INHOUSE NEGATIVE (Negative)
== END 2022-05-23 16:31 | disposition home or self-care (01) ==
PROVIDERS: Physician Assistant Medical; Emergency Provider Emergency Medicine; PCP Family Medicine
DX: J02.0 Streptococcal pharyngitis (principal); J20.9 Acute bronchitis, unspecified; Z20.822 Contact with and (suspected) exposure to COVID-19; Z20.828 Contact with and (suspected) exposure to other viral communicable diseases; E78.5 Hyperlipidemia, unspecified; J45.909 Unspecified asthma, uncomplicated; Z79.02 Long term (current) use of antithrombotics/antiplatelets; Z79.899 Other long term (current) drug therapy; Z79.82 Long term (current) use of aspirin
CPT/HCPCS: 0241U; 36415; 71046; 87651; 99282; 99283

== ENCOUNTER 2022-08-16 17:33 | Emergency (ER) | payer OTHER, SELFPAY ==
--- NOTE | ~2022-08-16 | CT_ITS ---
EXAMINATION: CT CHEST WITH CONTRAST CLINICAL INFORMATION: Large and lump in the right side. Tender to palpate. COMPARISON: None available. TECHNIQUE: Multidetector volumetric CT imaging of the chest was obtained after the administration of 65 mL of Omnipaque 350 intravenous contrast without immediate adverse reactions. Axial MIP volume rendering provided. Sagittal and coronal reformatted images were obtained. This CT examination was performed using dose optimization techniques as appropriate, variously including the following: *Automated exposure control *Adjustment of mA and/or kV according to patient size (this includes techniques or standardized protocols for targeted exams where dose is matched to indication/reason for exam; i.e. extremities or head) *Use of iterative reconstruction technique DLP: 307 mGy-cm FINDINGS: CABLE REPAIRER: Well-expanded lungs. LUNGS: There is mild centrilobular emphysema with scattered groundglass attenuation changes in both upper lobes and lower lobes. There is a 4 mm nodule right upper lobe axial image 143/5, 2 nodule right lower lobe axial image 141/5 1 mm calcified nodule left upper lobe axial image 150/5, 3 mm nodule left lower lobe axial image 189/3. MEDIASTINUM: The heart size and great vessels are normal caliber. No pericardial effusion or coronary artery calcifications seen. Central trachea and the bronchi are widely patent. Thyroid lobes are symmetrical and normal. There is a small hiatal hernia. PLEURA: There is no pleural effusion. No pleural mass or thickening. AXILLA: No lymphadenopathy. The extreme lateral segments of the chest wall is not in the bvjsy-fg-tkyr. There is a curvilinear hypodense collection superior and lateral to the mid to lower ribs measuring 10.8 cm in AP, 3.5 cm in width and 6.90 cm in craniocaudad length. It measures fluid density and likely represent seroma. There is no Rim fracture. It overlies right seventh, eighth, ninth and 10th ribs UPPER ABDOMEN: Visualized liver, spleen, pancreas, gallbladder and bilateral adrenal glands unremarkable. OSSEOUS STRUCTURES: There is small lucency visualized in central T3 and posterior T1 vertebra. CT/CT chest w IV con IMPRESSION: 1. Centrilobular emphysema with scattered groundglass attenuation changes in both upper lobes and lower lobes. 2. Multiple pulmonary nodules as described above. No follow up is recommended. 3. Small hiatal hernia. 4. Small lucency visualized in T1 and T3 vertebra. Correlate with bone scan. 5. Curvilinear collection posterolateral 7th through 10th ribs measuring fluid density likely seroma. No underlying rib fracture seen. Fleischner guidelines were followed.
[2022-08-16 17:38] VITALS: BP 137/78; PULSE 75; RESP 18; TEMP 36.4; O2SAT 97; BMI 34.0
--- NOTE | 2022-08-16 17:38 | ED_ITS ---
HPI - General Adult General Chief complaint: General Medical Stated complaint: large swollen area right side on back Time Seen by Provider: 08/16/22 17:54 Related Data Home Medications Medication Instructions Recorded Confirmed acetaminophen 650 mg 650 mg PO Q8H PRN pain 03/16/20 05/21/22 tablet,extended release albuterol sulfate 90 mcg/actuation 1 inh inhalation QID 03/16/20 05/21/22 aerosol inhaler aspirin 81 mg tablet,delayed 81 mg PO DAILY 03/16/20 05/21/22 release atorvastatin 10 mg tablet 10 mg PO DAILY 03/16/20 05/21/22 baclofen 20 mg tablet 20 mg PO DAILY 03/16/20 05/21/22 bupropion HCl 300 mg 24 hr tablet, 300 mg PO QAM 03/16/20 05/21/22 extended release calcium carbonate 600 mg-vitamin 1 tab PO DAILY 03/16/20 05/21/22 D3 10 mcg (400 unit) tablet cholecalciferol (vitamin D3) 50 50 mcg PO DAILY 03/16/20 05/21/22 mcg (2,000 unit) tablet diclofenac sodium 50 mg 50 mg PO DAILY 03/16/20 05/21/22 tablet,delayed release docusate sodium 100 mg capsule 100 mg PO DAILY 03/16/20 05/21/22 (Colace) gabapentin 300 mg capsule 300 mg PO BID 03/16/20 05/21/22 levothyroxine 112 mcg tablet 125 mcg PO DAILY 03/16/20 05/21/22 loratadine 10 mg tablet 10 mg PO DAILY 03/16/20 05/21/22 omega 2-rjt-egq-fish oil 300 1 cap PO DAILY 03/16/20 05/21/22 mg-1,000 mg capsule polyethylene glycol 3350 17 1 g PO DAILY constipation 03/16/20 05/21/22 gram/dose oral powder Centrum Silver 1 tab PO DAILY 08/18/20 05/21/22 antiox.multivit 10-[id number] 280 1 cap PO DAILY 08/18/20 05/21/22 mg-lutein 10 mg-zeaxanthin 2 mg capsule (I-Caps) pantoprazole 40 mg tablet,delayed 40 mg PO DAILY 05/21/22 05/21/22 release Previous Rx's Medication Instructions Recorded amoxicillin 875 mg-potassium 1 tab PO BID 7 days #14 tabs 05/23/22 clavulanate 125 mg tablet benzonatate 100 mg capsule 100 mg PO TID PRN cough #14 caps 05/23/22 fluticasone propionate 50 2 spray intranasal DAILY #16 grams 05/23/22 mcg/actuation nasal spray,suspension (Flonase Allergy Relief) prednisone 20 mg tablet 40 mg PO DAILY 5 days #10 tabs 05/23/22 Allergies Allergy/AdvReac Type Severity Reaction Status Date / Time No Known Allergies Allergy Verified 08/16/22 17:38 [No Known Allergies*] [facility] Past Medical History Medical History Asthma Chronic pain Colon polyp High cholesterol History of fatty infiltration of liver Hx of cervical cancer Hypothyroid Leukopenia Macular degeneration ANCA on CPAP Surgical History History of back surgery History of excision of mass History of total abdominal hysterectomy and bilateral salpingo-oophorectomy Hx of colonoscopy Hx of tubal ligation Family History Family History Father No problems noted. Mother No problems noted. Daughter No problems noted. Son No problems noted. Sister Breast cancer Colon cancer Brother Liver cancer Brother Cancer of kidney Social History Social History Household Members: Family Housing: Apartment Are you a primary career technical counselor to a significant other at home: No Do you presently have visiting nurse or other home services: No Alcohol intake: never Patient Tobacco Use Status: Never used Tobacco Use of substances other than those prescribed or required for medical reasons: No Advance Directives: No Advance Directives Information Provided: Yes Current occupational status: retired and disabled Physical Exam ED Vital Signs: BMI result Body Mass Index 34.0 Course Course Course Narrative: RME: 62yo nF w/PMHx asthma, HLD, Hypothyroid, cervical CA, ANCA on CPAP, c/o large painful lump to R side since last night. Denies injury/fall or trauma. Reports area growing since last night, with mild SOB from pain. +large firm lump to R side with +ttp. No fluctuance or erythema. Labs, CT chest w/IV contrast ordered Full HPI, ROS and PE to be performed by primary ED provider. Medications Administered Discontinued Medications Generic Name Dose Route Start Last Admin Trade Name Ginny PRN Reason Stop Dose Admin Iohexol 100 ml 08/16/22 19:18 08/16/22 19:18 Iohexol 350 Mg/Ml 100 Ml Infus..Btl IV 08/16/22 19:19 65 ml ONCE ONE Administration Medical Decision Making Lab Data 08/16/22 18:25 08/16/22 18:25 Labs: Lab Results 08/16/22 08/16/22 08/16/22 Range/Units 18:25 18:25 18:25 WBC 5.7 (4.8-10.8) X10*3/uL RBC 4.09 L (4.20-5.50) X10*6/uL Hgb 11.6 L (12.0-16.0) g/dl Hct 35.3 L (37.0-47.0) % MCV 86.3 (80.0-98.0) fL MCH 28.4 (27.0-33.0) pg MCHC 32.9 (31.0-35.0) g/dl RDW 13.2 (11.0-16.0) % Plt Count 196 (160-400) X10*3/uL MPV 11.6 (9.4-12.3) fL Immature Gran % (Auto) 0.7 H (0.0-0.4) % Neut % (Auto) 53.3 (45-73) % Lymph % (Auto) 34.7 (20-40) % [place] % (Auto) 6.3 (2-11) % Eos % (Auto) 3.9 (0-4) % Baso % (Auto) 1.1 (0-2) % Lymph # (Auto) 2.0 (1.2-4.9) X10*3/uL [place] # (Auto) 0.4 (0.1-1.2) X10*3/uL Eos # (Auto) 0.2 (0.0-0.4) X10*3/uL Baso # (Auto) 0.1 (0.0-0.2) X10*3/uL Abs Immat Gran (auto) 0.04 H (0.00-0.03) X10*3/uL Absolute Neuts (auto) 3.0 (2.0-8.3) x10*3/uL Absolute Nucleated RBC 0.000 (0.0-0.012) X10*3/uL Nucleated RBC % (auto) 0.0 (0.0-0.2) /100WBC PT 13.1 (10.0-13.1) SEC INR 1.1 (0.9-1.1) Sodium 143 (135-145) mmol/L Potassium 3.7 (3.3-5.1) mmol/L Chloride 109 H (96-108) mmol/L Carbon Dioxide 26 (22-29) mmol/L Anion Gap 12 (12-20) BUN 26 H (9-16) mg/dL Creatinine 1.12 (0.5-1.4) mg/dL Estim Creat Clear Calc 61.9 Estimated GFR 49 Random Glucose 123 H (60-115) mg/dL Calcium 9.4 (8.4-10.2) mg/dL Magnesium 1.8 (1.6-2.6) mg/dL Total Bilirubin 0.3 (0.0-1.0) mg/dL Direct Bilirubin 0.1 (0.0-0.5) mg/dL AST 30 (5-31) U/L ALT 25 (0-31) U/L Alkaline Phosphatase 101 (39-117) U/L Total Protein 6.7 (6.5-8.0) g/dL Albumin 4.0 (3.5-5.0) g/dL Urine Color Urine Appearance Urine pH (5.0-9.0) Ur Specific [place] (1.005-1.025) Urine Protein (Neg-Trace) mg/dL Urine Glucose (UA) (Negative) mg/dL Urine Ketones (Negative) mg/dL Urine Blood (Negative) Urine Nitrite (Negative) Ur Leukocyte Esterase (Negative) Urine RBC (0-2) /HPF Urine WBC (0-5) /HPF Ur Squamous Epith Cells (0-2) /HPF Urine Bacteria (None Seen) Hyaline Casts (0-2) /LPF 08/16/22 Range/Units 20:17 WBC (4.8-10.8) X10*3/uL RBC (4.20-5.50) X10*6/uL Hgb (12.0-16.0) g/dl Hct (37.0-47.0) % MCV (80.0-98.0) fL MCH (27.0-33.0) pg MCHC (31.0-35.0) g/dl RDW (11.0-16.0) % Plt Count (160-400) X10*3/uL MPV (9.4-12.3) fL Immature Gran % (Auto) (0.0-0.4) % Neut % (Auto) (45-73) % Lymph % (Auto) (20-40) % [place] % (Auto) (2-11) % Eos % (Auto) (0-4) % Baso % (Auto) (0-2) % Lymph # (Auto) (1.2-4.9) X10*3/uL [place] # (Auto) (0.1-1.2) X10*3/uL Eos # (Auto) (0.0-0.4) X10*3/uL Baso # (Auto) (0.0-0.2) X10*3/uL Abs Immat Gran (auto) (0.00-0.03) X10*3/uL Absolute Neuts (auto) (2.0-8.3) x10*3/uL Absolute Nucleated RBC (0.0-0.012) X10*3/uL Nucleated RBC % (auto) (0.0-0.2) /100WBC PT (10.0-13.1) SEC INR (0.9-1.1) Sodium (135-145) mmol/L Potassium (3.3-5.1) mmol/L Chloride (96-108) mmol/L Carbon Dioxide (22-29) mmol/L Anion Gap (12-20) BUN (9-16) mg/dL Creatinine (0.5-1.4) mg/dL Estim Creat Clear Calc Estimated GFR Random Glucose (60-115) mg/dL Calcium (8.4-10.2) mg/dL Magnesium (1.6-2.6) mg/dL Total Bilirubin (0.0-1.0) mg/dL Direct Bilirubin (0.0-0.5) mg/dL AST (5-31) U/L ALT (0-31) U/L Alkaline Phosphatase (39-117) U/L Total Protein (6.5-8.0) g/dL Albumin (3.5-5.0) g/dL Urine Color Yellow Urine Appearance Clear Urine pH 6.0 (5.0-9.0) Ur Specific [place] <= 1.005 (1.005-1.025) Urine Protein Negative (Neg-Trace) mg/dL Urine Glucose (UA) Negative (Negative) mg/dL Urine Ketones Negative (Negative) mg/dL Urine Blood Negative (Negative) Urine Nitrite Negative (Negative) Ur Leukocyte Esterase Negative (Negative) Urine RBC 0-2 (0-2) /HPF Urine WBC 0-5 (0-5) /HPF Ur Squamous Epith Cells 0-2 (0-2) /HPF Urine Bacteria None Seen (None Seen) Hyaline Casts 0-2 (0-2) /LPF Discharge Plan Discharge Clinical Impression: Chest wall mass Patient Disposition: Home, Self-Care Instructions: Soft Tissue Chest Tumor (ED) Additional Instructions: Please follow-up either tomorrow or Saturday at Dr. Teresa's office Prescriptions: No Action I-Caps 280-10-2 mg Capsule 1 cap PO DAILY Centrum Silver 1 tab PO DAILY pantoprazole 40 mg Tablet,Delayed Release (Dr/Ec) 40 mg PO DAILY prednisone 20 mg tablet 40 mg PO DAILY 5 Days Qty: 10 0RF benzonatate 100 mg capsule 100 mg PO TID PRN (Reason: cough) Qty: 14 0RF fluticasone propionate [Flonase Allergy Relief] 50 mcg/actuation spray,suspension 2 spray intranasal DAILY Qty: 16 0RF Rx Instructions: administer into each nostril amoxicillin-pot clavulanate 875-125 mg tablet 1 tab PO BID 7 Days Qty: 14 0RF diclofenac sodium 50 mg tablet,delayed release (DR/EC) 50 mg PO DAILY bupropion HCl 300 mg tablet extended release 24 hr 300 mg PO QAM gabapentin 300 mg capsule 300 mg PO BID baclofen 20 mg tablet 20 mg PO DAILY levothyroxine 112 mcg tablet 125 mcg PO DAILY docusate sodium [Colace] 100 mg capsule 100 mg PO DAILY albuterol sulfate 90 mcg/actuation HFA aerosol inhaler 1 inh inhalation QID atorvastatin 10 mg tablet 10 mg PO DAILY loratadine 10 mg tablet 10 mg PO DAILY omega 9-zkg-zra-fish oil 300-1,000 mg capsule 1 cap PO DAILY polyethylene glycol 3350 17 gram/dose powder 1 g PO DAILY acetaminophen 650 mg tablet extended release 650 mg PO Q8H PRN (Reason: pain) calcium carbonate-vitamin D3 600 mg(1,500mg) -400 unit tablet 1 tab PO DAILY aspirin 81 mg tablet,delayed release (DR/EC) 81 mg PO DAILY cholecalciferol (vitamin D3) 50 mcg (2,000 unit) tablet 50 mcg PO DAILY Referrals: Angelito Bowen PA [Physician Despatch Clerk] - 08/17/22 Blayne Teresa MD [Physician] - 08/20/22 Blayne Teresa MD [Physician] - 08/20/22 Interventions: ED Discharge Assessment Last Done: 08/16/22 21:23 Discharge Date/Time: 08/16/22 21:15 Print Language: Cook Islander
--- NOTE | 2022-08-16 17:58 | ED_ITS ---
HPI - General Adult General Chief complaint: General Medical Stated complaint: large swollen area right side on back Time Seen by Provider: 08/16/22 17:54 History of Present Illness HPI narrative: Patient is a 62-year-old female presents today with having a lump in her right upper back. Patient states the lesion has been there for about a week as grown in size she has pain when she moves. No shortness of breath no diaphoresis positive history of cervical cancer but it was over 30 years ago. No fever no chills. No diaphoresis. No trauma to the area. No abdominal pain no nausea no vomiting no diarrhea no flank pain. Patient is from home. Related Data Home Medications Medication Instructions Recorded Confirmed acetaminophen 650 mg 650 mg PO Q8H PRN pain 03/16/20 05/21/22 tablet,extended release albuterol sulfate 90 mcg/actuation 1 inh inhalation QID 03/16/20 05/21/22 aerosol inhaler aspirin 81 mg tablet,delayed 81 mg PO DAILY 03/16/20 05/21/22 release atorvastatin 10 mg tablet 10 mg PO DAILY 03/16/20 05/21/22 baclofen 20 mg tablet 20 mg PO DAILY 03/16/20 05/21/22 bupropion HCl 300 mg 24 hr tablet, 300 mg PO QAM 03/16/20 05/21/22 extended release calcium carbonate 600 mg-vitamin 1 tab PO DAILY 03/16/20 05/21/22 D3 10 mcg (400 unit) tablet cholecalciferol (vitamin D3) 50 50 mcg PO DAILY 03/16/20 05/21/22 mcg (2,000 unit) tablet diclofenac sodium 50 mg 50 mg PO DAILY 03/16/20 05/21/22 tablet,delayed release docusate sodium 100 mg capsule 100 mg PO DAILY 03/16/20 05/21/22 (Colace) gabapentin 300 mg capsule 300 mg PO BID 03/16/20 05/21/22 levothyroxine 112 mcg tablet 125 mcg PO DAILY 03/16/20 05/21/22 loratadine 10 mg tablet 10 mg PO DAILY 03/16/20 05/21/22 omega 8-vme-fnt-fish oil 300 1 cap PO DAILY 03/16/20 05/21/22 mg-1,000 mg capsule polyethylene glycol 3350 17 1 g PO DAILY constipation 03/16/20 05/21/22 gram/dose oral powder Centrum Silver 1 tab PO DAILY 08/18/20 05/21/22 antiox.multivit 10-[id number] 280 1 cap PO DAILY 08/18/20 05/21/22 mg-lutein 10 mg-zeaxanthin 2 mg capsule (I-Caps) pantoprazole 40 mg tablet,delayed 40 mg PO DAILY 05/21/22 05/21/22 release Previous Rx's Medication Instructions Recorded amoxicillin 875 mg-potassium 1 tab PO BID 7 days #14 tabs 05/23/22 clavulanate 125 mg tablet benzonatate 100 mg capsule 100 mg PO TID PRN cough #14 caps 05/23/22 fluticasone propionate 50 2 spray intranasal DAILY #16 grams 05/23/22 mcg/actuation nasal spray,suspension (Flonase Allergy Relief) prednisone 20 mg tablet 40 mg PO DAILY 5 days #10 tabs 05/23/22 Allergies Allergy/AdvReac Type Severity Reaction Status Date / Time No Known Allergies Allergy Verified 08/16/22 17:38 [No Known Allergies*] Review of Systems Review of Systems: Positive pain to the right upper back. Positive mass in that area Yes all other systems are reviewed and are negative PMFSH Past Medical History Attestation statement: The following information was validated with the patient. Medical History Asthma Chronic pain Colon polyp High cholesterol History of fatty infiltration of liver Hx of cervical cancer Hypothyroid Leukopenia Macular degeneration ANCA on CPAP Surgical History History of back surgery History of excision of mass History of total abdominal hysterectomy and bilateral salpingo-oophorectomy Hx of colonoscopy Hx of tubal ligation Family History Family History Father No problems noted. Mother No problems noted. Daughter No problems noted. Son No problems noted. Sister Breast cancer Colon cancer Brother Liver cancer Brother Cancer of kidney Social History Social History Household Members: Family Housing: Apartment Are you a primary day care director to a significant other at home: No Do you presently have visiting nurse or other home services: No Alcohol intake: never Patient Tobacco Use Status: Never used Tobacco Use of substances other than those prescribed or required for medical reasons: No Advance Directives: No Advance Directives Information Provided: Yes Current occupational status: retired and disabled Physical Exam ED Vital Signs: Vital Signs - 24 hr 08/16/22 17:38 08/16/22 19:20 Temperature 97.5 F 98.1 F Pulse Rate 75 96 Respiratory Rate 18 18 Blood Pressure 137/78 128/77 Pulse Oximetry 97 96 Oxygen Delivery Method Room Air Room Air BMI result Body Mass Index 34.0 Appearance: Alert. Oriented X3. No acute distress. Eyes: Pupils equal, round and reactive to light. ENT: Pharynx normal. Neck: Normal inspection. Neck supple. No lymph nodes noted. No crepitus CVS: Normal heart rate and rhythm. Pulses normal. Normal S1 and S2 Respiratory: No respiratory distress. Breath sounds normal. No Wheezing. No rales Abdomen: Soft and nontender. No rigidity. No distention. good BS x4 Skin: Positive 5 cm x 10 cm lesion that seems fluctuant but not tender to touch over the right upper back. There is no redness noted over the area. No warmth to touch. Extremities: No lower extremity edema. Neurovascular intact to all extremities. No Lacerations. No Rash Neuro: Oriented X 3. No motor deficit. No sensory deficit. Moving all extermities. No slurred speech Medications Administered Discontinued Medications Generic Name Dose Route Start Last Admin Trade Name Freq PRN Reason Stop Dose Admin Iohexol 100 ml 08/16/22 19:18 08/16/22 19:18 Iohexol 350 Mg/Ml 100 Ml Infus..Btl IV 08/16/22 19:19 65 ml ONCE ONE Administration Medical Decision Making Medical Decision Making MDM Narrative: Patient has a fluctuant mass in the right posterior chest wall. Approximately 10 cm x 5 cm in size. Did not grossly appear infected. Differential includes lipoma, seroma, malignancy, cellulitis. Grossly did not appeared infected. Patient white count is normal. CT scan of the chest consistent with having a seroma. The finding will be discussed with thoracic surgery. Will have patient closely follow up on an outpatient basis. O2 sat is normal. No evidence for hypoxia. Patient to be discharged home. Case discussed with Levar Bowen on-call for thoracic. Will make sure patient gets seen either tomorrow or on Saturday. In stable condition. Feel comfortable with discharge. Differential Diagnosis Differential Diagnoses: The differential diagnosis associated with the presentation includes Lipoma, seroma, mass, infection Consult Healthcare Provider Management of the patient was discussed with: Purchasing Administrator Thoracic Lab Data [facility] Lab Attestation statement: I reviewed the patient's lab results. 08/16/22 18:25 08/16/22 18:25 Labs: Lab Results 08/16/22 08/16/22 08/16/22 Range/Units 18:25 18:25 18:25 WBC 5.7 (4.8-10.8) X10*3/uL RBC 4.09 L (4.20-5.50) X10*6/uL Hgb 11.6 L (12.0-16.0) g/dl Hct 35.3 L (37.0-47.0) % MCV 86.3 (80.0-98.0) fL MCH 28.4 (27.0-33.0) pg MCHC 32.9 (31.0-35.0) g/dl RDW 13.2 (11.0-16.0) % Plt Count 196 (160-400) X10*3/uL MPV 11.6 (9.4-12.3) fL Immature Gran % (Auto) 0.7 H (0.0-0.4) % Neut % (Auto) 53.3 (45-73) % Lymph % (Auto) 34.7 (20-40) % [place] % (Auto) 6.3 (2-11) % Eos % (Auto) 3.9 (0-4) % Baso % (Auto) 1.1 (0-2) % Lymph # (Auto) 2.0 (1.2-4.9) X10*3/uL [place] # (Auto) 0.4 (0.1-1.2) X10*3/uL Eos # (Auto) 0.2 (0.0-0.4) X10*3/uL Baso # (Auto) 0.1 (0.0-0.2) X10*3/uL Abs Immat Gran (auto) 0.04 H (0.00-0.03) X10*3/uL Absolute Neuts (auto) 3.0 (2.0-8.3) x10*3/uL Absolute Nucleated RBC 0.000 (0.0-0.012) X10*3/uL Nucleated RBC % (auto) 0.0 (0.0-0.2) /100WBC PT 13.1 (10.0-13.1) SEC INR 1.1 (0.9-1.1) Sodium 143 (135-145) mmol/L Potassium 3.7 (3.3-5.1) mmol/L Chloride 109 H (96-108) mmol/L Carbon Dioxide 26 (22-29) mmol/L Anion Gap 12 (12-20) BUN 26 H (9-16) mg/dL Creatinine 1.12 (0.5-1.4) mg/dL Estim Creat Clear Calc 61.9 Estimated GFR 49 Random Glucose 123 H (60-115) mg/dL Calcium 9.4 (8.4-10.2) mg/dL Magnesium 1.8 (1.6-2.6) mg/dL Total Bilirubin 0.3 (0.0-1.0) mg/dL Direct Bilirubin 0.1 (0.0-0.5) mg/dL AST 30 (5-31) U/L ALT 25 (0-31) U/L Alkaline Phosphatase 101 (39-117) U/L Total Protein 6.7 (6.5-8.0) g/dL Albumin 4.0 (3.5-5.0) g/dL Urine Color Urine Appearance Urine pH (5.0-9.0) Ur Specific [place] (1.005-1.025) Urine Protein (Neg-Trace) mg/dL Urine Glucose (UA) (Negative) mg/dL Urine Ketones (Negative) mg/dL Urine Blood (Negative) Urine Nitrite (Negative) Ur Leukocyte Esterase (Negative) 08/16/22 Range/Units 20:17 WBC (4.8-10.8) X10*3/uL RBC (4.20-5.50) X10*6/uL Hgb (12.0-16.0) g/dl Hct (37.0-47.0) % MCV (80.0-98.0) fL MCH (27.0-33.0) pg MCHC (31.0-35.0) g/dl RDW (11.0-16.0) % Plt Count (160-400) X10*3/uL MPV (9.4-12.3) fL Immature Gran % (Auto) (0.0-0.4) % Neut % (Auto) (45-73) % Lymph % (Auto) (20-40) % [place] % (Auto) (2-11) % Eos % (Auto) (0-4) % Baso % (Auto) (0-2) % Lymph # (Auto) (1.2-4.9) X10*3/uL [place] # (Auto) (0.1-1.2) X10*3/uL Eos # (Auto) (0.0-0.4) X10*3/uL Baso # (Auto) (0.0-0.2) X10*3/uL Abs Immat Gran (auto) (0.00-0.03) X10*3/uL Absolute Neuts (auto) (2.0-8.3) x10*3/uL Absolute Nucleated RBC (0.0-0.012) X10*3/uL Nucleated RBC % (auto) (0.0-0.2) /100WBC PT (10.0-13.1) SEC INR (0.9-1.1) Sodium (135-145) mmol/L Potassium (3.3-5.1) mmol/L Chloride (96-108) mmol/L Carbon Dioxide (22-29) mmol/L Anion Gap (12-20) BUN (9-16) mg/dL Creatinine (0.5-1.4) mg/dL Estim Creat Clear Calc Estimated GFR Random Glucose (60-115) mg/dL Calcium (8.4-10.2) mg/dL Magnesium (1.6-2.6) mg/dL Total Bilirubin (0.0-1.0) mg/dL Direct Bilirubin (0.0-0.5) mg/dL AST (5-31) U/L ALT (0-31) U/L Alkaline Phosphatase (39-117) U/L Total Protein (6.5-8.0) g/dL Albumin (3.5-5.0) g/dL Urine Color Yellow Urine Appearance Clear Urine pH 6.0 (5.0-9.0) Ur Specific [place] <= 1.005 (1.005-1.025) Urine Protein Negative (Neg-Trace) mg/dL Urine Glucose (UA) Negative (Negative) mg/dL Urine Ketones Negative (Negative) mg/dL Urine Blood Negative (Negative) Urine Nitrite Negative (Negative) Ur Leukocyte Esterase Negative (Negative) Radiology Impression Discussion of test interpretation with radiology: I have reviewed the radiologist's reading. Radiologist Impression: CT scan of the chest reviewed positive seroma like fluid noted in the right posterior chest. Discharge Plan Discharge Clinical Impression: Chest wall mass Patient Disposition: Home, Self-Care Instructions: Soft Tissue Chest Tumor (ED) Additional Instructions: Please follow-up either tomorrow or Saturday at Dr. Teresa's office Prescriptions: No Action I-Caps 280-10-2 mg Capsule 1 cap PO DAILY Centrum Silver 1 tab PO DAILY pantoprazole 40 mg Tablet,Delayed Release (Dr/Ec) 40 mg PO DAILY prednisone 20 mg tablet 40 mg PO DAILY 5 Days Qty: 10 0RF benzonatate 100 mg capsule 100 mg PO TID PRN (Reason: cough) Qty: 14 0RF fluticasone propionate [Flonase Allergy Relief] 50 mcg/actuation spray,suspension 2 spray intranasal DAILY Qty: 16 0RF Rx Instructions: administer into each nostril amoxicillin-pot clavulanate 875-125 mg tablet 1 tab PO BID 7 Days Qty: 14 0RF diclofenac sodium 50 mg tablet,delayed release (DR/EC) 50 mg PO DAILY bupropion HCl 300 mg tablet extended release 24 hr 300 mg PO QAM gabapentin 300 mg capsule 300 mg PO BID baclofen 20 mg tablet 20 mg PO DAILY levothyroxine 112 mcg tablet 125 mcg PO DAILY docusate sodium [Colace] 100 mg capsule 100 mg PO DAILY albuterol sulfate 90 mcg/actuation HFA aerosol inhaler 1 inh inhalation QID atorvastatin 10 mg tablet 10 mg PO DAILY loratadine 10 mg tablet 10 mg PO DAILY omega 3-otq-off-fish oil 300-1,000 mg capsule 1 cap PO DAILY polyethylene glycol 3350 17 gram/dose powder 1 g PO DAILY acetaminophen 650 mg tablet extended release 650 mg PO Q8H PRN (Reason: pain) calcium carbonate-vitamin D3 600 mg(1,500mg) -400 unit tablet 1 tab PO DAILY aspirin 81 mg tablet,delayed release (DR/EC) 81 mg PO DAILY cholecalciferol (vitamin D3) 50 mcg (2,000 unit) tablet 50 mcg PO DAILY Referrals: Angelito Bowen PA [Physician Clinical Assistant] - 08/17/22 Blayne Teresa MD [Physician] - 08/20/22 Blayne Teresa MD [Physician] - 08/20/22 Print Language: Vietnamese
[2022-08-16 18:31] LABS: MANUAL DIFF FLAG NO
--- NOTE | 2022-08-16 18:32 | PC.NURSE ---
IV access obtained on L forearm 20g catheter using aseptic technique. No swelling or infiltration noted at time of insertion
[2022-08-16 18:40] LABS: Basophils Absolute Auto 0.1 X10*3/uL (0.0-0.2); Basophils Percent Auto 1.1 % (0-2); Eosinophils Absolute Auto 0.2 X10*3/uL (0.0-0.4); Eosinophils Percent Auto 3.9 % (0-4); Hematocrit 35.3 % (37.0-47.0); Hemoglobin 11.6 g/dl (12.0-16.0); Imm Gran Abs Auto 0.04 X10*3/uL (0.00-0.03); Imm Gran Pct Auto 0.7 % (0.0-0.4); Lymphocytes Percent Auto 34.7 % (20-40); Mean Corpuscular HGB Conc 32.9 g/dl (31.0-35.0); Mean Corpuscular Hemoglobin 28.4 pg (27.0-33.0); Mean Corpuscular Volume 86.3 fL (80.0-98.0); Mean Platelet Volume 11.6 fL (9.4-12.3); Monocytes Absolute Auto 0.4 X10*3/uL (0.1-1.2); Monocytes Percent Auto 6.3 % (2-11); Neutrophils Percent Auto 53.3 % (45-73); Platelet Count 196 X10*3/uL (160-400); Red Blood Count 4.09 X10*6/uL (4.20-5.50); Red Cell Distribution Width 13.2 % (11.0-16.0); White Blood Count 5.7 X10*3/uL (4.8-10.8)
[2022-08-16 18:51] LABS: Alanine Aminotransferase 25 U/L (0-31); Alkaline Phosphatase 101 U/L (39-117); Anion Gap 12 (12-20); Aspartate Amino Transferase 30 U/L (5-31); Bilirubin Direct 0.1 mg/dL (0.0-0.5); Bilirubin Total 0.3 mg/dL (0.0-1.0); Blood Urea Nitrogen 26 mg/dL (9-16); Calcium 9.4 mg/dL (8.4-10.2); Carbon Dioxide 26 mmol/L (22-29); Chloride 109 mmol/L (96-108); Creatinine Clr Calc Pharmacy 61.9; Estimated Glomerular Filt Rate 49; Glucose Random 123 mg/dL (60-115); Potassium 3.7 mmol/L (3.3-5.1); Sodium 143 mmol/L (135-145); Total Protein 6.7 g/dL (6.5-8.0)
[2022-08-16 19:07] LABS: Magnesium 1.8 mg/dL (1.6-2.6)
[2022-08-16] MEDS: iohexoL 350 MG/ML 100 ML INFUS..BTL IV (19:18)
[2022-08-16 19:20] VITALS: BP 128/77; PULSE 96; RESP 18; TEMP 36.7; O2SAT 96
--- NOTE | 2022-08-16 19:28 | PC.NURSE ---
I resumed care of the pt at 1900. Pt is resting comfortably in bed with family at the bedside. Pt just returned from CT. Pt was given water and we are now waiting for results.
[2022-08-16 19:31] LABS: INTERNATIONAL NORM RATIO 1.1 (0.9-1.1); Prothrombin Time 13.1 SEC (10.0-13.1)
[2022-08-16 20:24] LABS: Appearance Urine Clear; Color Urine Yellow; Glucose Urine UA Negative (Negative); Leukocyte Esterase Urine Negative (Negative); Nitrite Urine Negative (Negative); Specific Gravity - Urine <= 1.005 (1.005-1.025); Urine Blood Negative (Negative); Urine Ketones Negative (Negative); Urine Protein Negative (Neg-Trace)
[2022-08-16 20:31] LABS: Bacteria Urine None Seen (None Seen); Hyaline Casts Urine 0-2 /LPF (0-2); RBC Urine 0-2 /HPF (0-2); Squamous Epithelial Cell Urine 0-2 /HPF (0-2); WBC Urine 0-5 /HPF (0-5)
[2022-08-16 21:10] VITALS: BP 128/72; PULSE 72; RESP 18; O2SAT 98
== END 2022-08-16 21:15 | disposition home or self-care (01) ==
PROVIDERS: Physician Assistant; Emergency Provider Emergency Medicine Emergency Medical Services; PCP Family Medicine
DX: R22.2 Localized swelling, mass and lump, trunk (principal); M54.6 Pain in thoracic spine; E78.5 Hyperlipidemia, unspecified; K76.0 Fatty (change of) liver, not elsewhere classified; Z79.82 Long term (current) use of aspirin; Z79.899 Other long term (current) drug therapy; Z79.02 Long term (current) use of antithrombotics/antiplatelets; Z85.41 Personal history of malignant neoplasm of cervix uteri
CPT/HCPCS: 36415; 71260; 80048; 80076; 81001; 83735; 85025; 85610; 99284; Q9967

== ENCOUNTER 2022-11-12 14:08 | Outpatient (AMB) | payer OTHER, SELFPAY ==
--- NOTE | 2022-11-12 14:12 | A.OFFVIS_ITS ---
Intake Vital Signs 11/12/22 14:20 Height 5 ft 7 in Weight 214 lb BMI 33.5 BP 116/66 Blood Pressure Location Lt brachial Position Sitting Pulse 66 Intake Visit Reasons: positive colorectal screening Intake Note: Patient follow up for positive colorectal screening. Patient cc: RUQ pain, acid reflex, and constipation. Volunteer Services Specialist Required: No Accompanied by: Daughter Allergies No Known Allergies [No Known Allergies*] Allergy (Verified 11/12/22 14:11) Medication List - Last Reconciled 11/12/22 by Shanna Bingham PA-C acetaminophen ER 650 mg PO Q8H PRN albuterol sulfate 90 mcg/actuation 1 inh inhalation QID antiox.mv no.[id number]-mii-duj 280-10-2 mg (I-Caps) 1 cap PO DAILY aspirin 81 mg PO DAILY atorvastatin 10 mg PO DAILY baclofen 20 mg PO DAILY benzonatate 100 mg PO TID PRN bupropion HCl 300 mg PO QAM calcium carbonate-vitamin D3 600 mg-10 mcg (400 unit) 1 tab PO DAILY [Centrum Silver 1 tab PO DAILY] cholecalciferol (vitamin D3) 50 mcg PO DAILY diclofenac sodium 50 mg PO DAILY docusate sodium (Colace) 100 mg PO DAILY fluticasone propionate 50 mcg/actuation (Flonase Allergy Relief) 2 sprays intranasal DAILY gabapentin 300 mg PO BID levothyroxine 125 mcg PO DAILY loratadine 10 mg PO DAILY omega 0-bly-niz-fish oil 300-1,000 mg 1 cap PO DAILY pantoprazole 40 mg PO DAILY polyethylene glycol 3350 1 g PO DAILY HPI HPI Comments History of Present Illness Details A 62 y/o female hx colon polyps -known hemorrhoids with chronic constipation referred for [facility] positive stool. Spokeable insurance did stool test- colonoscopy 2020- Dr. Mcdonough- She has a small amount BRB TP after BM-she does strain at times with bowel movements-she has limited activity he uses a walker Takes oxycodone QID-as well as other medications that seem to affect constipation. She has no abdominal pain, she has not had fever or chills She has a good appetite She is accompanied by her daughter today No nausea, vomiting, hematemesis, fever or chills PFSH Medical History Asthma Chronic pain Colon polyp High cholesterol History of fatty infiltration of liver Hx of cervical cancer Hypothyroid Leukopenia Macular degeneration ANCA on CPAP Surgical History History of back surgery History of excision of mass History of total abdominal hysterectomy and bilateral salpingo-oophorectomy Hx of colonoscopy Hx of tubal ligation Family History Father No problems noted. Mother No problems noted. Daughter No problems noted. Son No problems noted. Sister Breast cancer Colon cancer Brother Liver cancer Brother Cancer of kidney Social History Household Members: Family Housing: Apartment Are you a primary day care home mother to a significant other at home: No Do you presently have visiting nurse or other home services: No Alcohol intake: never Patient Tobacco Use Status: Never used Tobacco Current occupational status: retired and disabled Review of Systems Const All systems reviewed & are unremarkable except as noted in HPI and below Card Denies chest pain and Denies dyspnea Resp Denies dyspnea GI Denies abdominal pain, Reports constipation, Denies heartburn, Denies nausea, Denies vomiting and Reports other (Bright red blood on TP after straining) Physical Exam Vital Signs: Last Vital Signs Pulse 66 11/12/22 14:20 BP 116/66 11/12/22 14:20 BMI result Body Mass Index 33.5 Const General: cooperative, healthy appearing, comfortable and no acute distress Orientation/consciousness: patient oriented x3 Limitations: no limitations, physical limitations and ambulation with walker Eyes Sclerae: sclerae normal Resp Effort & Inspection: normal respiratory effort and able to speak in complete sentences Auscultation: clear to auscultation bilaterally Cardio Rate: regular rate Rhythm: regular rhythm Heart sounds: S1 normal heart sound present and S2 normal heart sound present GI Palpation (GI): Soft to palpation and nontender Auscultation: normal bowel sounds Skin General skin exam: no rashes or lesions noted Neuro General: patient oriented x3 Extrem General: Yes full ROM Psych Appearance: grossly normal and well kempt Mental Status: mental status grossly normal Speech and movement: Normal speech and movement present and Clear speech present Affect: normal affect Attitude: cooperative Thought process: Normal thought process present Thought content: Normal thought content present Insight: Good insight present (Psych) Judgement: Good judgement present (Psych) Results Reviewed Results Reviewed: Impression and Post Procedure Diagnosis: Colonoscopy Findings: No polyps were detected. Moderate diverticulosis seen in the sigmoid colon Moderate hemorrhoids on retroflexed exam. Plan: Await pathology results Patient has an appointment on 05/11/19 in the [facility] with SUZIE Davenport . Repeat Colonoscopy in 5 years due to past hx of adenomatous colon polyps. Above findings were reviewed with the patient and diverticulosis handout was given in the discharge area Surgeon: Shiraz Mcdonough MD Assessment & Plan Assessment & Plan (1) Diverticulosis of colon: Comment: history of adenomatous colon polyps , 2020 Colonoscopy -no polyps, however diverticulosis and moderate hemorrhoids were -noted. Will put recall for 5 year repeat colonoscopy Code(s): K57.30 - Diverticulosis of large intestine without perforation or abscess without bleeding (2) Colon polyp: Comment: History of adenomas no polyps 2020-repeat colonoscopy 2025 due to history Code(s): K63.5 - Polyp of colon Plan: up to date colonoscopy (3) Chronic constipation: Comment: Likely medication plays a role as well as limited activity Reviewed medications,-consistent bowel regimen maintain high-fiber diet She is not taking MiraLax she will give trial to Metamucil Suppositories every 3 day if not adequate BM Rectal cream, avoid straining Declined surgical referral for hemorrhoid consult Code(s): K59.09 - Other constipation Plan: Maintain consistent bowel regimen high-fiber diet (4) Heme positive stool: Comment: May likely be hemorrhoidal Known moderate hemorrhoids /colonoscopy Code(s): R19.5 - Other fecal abnormalities (5) Hemorrhoids: Comment: Moderate hemorrhoids-constipation with straining likely cause of bleeding Increase fiber, fiber supplements, Offer surgical referral-decline Code(s): K64.9 - Unspecified hemorrhoids Plan: Maintain high-fiber diet, fiber supplement Avoid straining Rectal cream Orders: Orders Complete Blood Count Auto Diff Today R19.5 - Other fecal abnormalities Medications: New methylcellulose (laxative) (Citrucel Sugar Free oral powder) 2 grams PO DAILY PRN 479 grams 5RF constipation hydrocortisone 2.5% (Proctosol HC) 1 appl TX BEDTIME PRN 30 grams 3RF hemorrhoids bisacodyl (Dulcolax (bisacodyl)) 10 mg TX DAILY PRN 30 ea 1RF constipation Patient Instructions: Very pleasant 62-year-old female history hemorrhoids, chronic constipation referred for after stool test for insurance is positive for blood. Most likely cause known moderate hemorrhoids Reviewed medications,-consistent bowel regimen maintain high-fiber diet She is not taking MiraLax she will give trial to Metamucil Suppositories every 3 day if not adequate BM Rectal cream, avoid straining Declined surgical referral for hemorrhoid consult Her adult daughter was present agrees with above Encouraged to call questions or concerns Appreciate the opportunity assist in the care the patient Coding Level of Care Code Tele Est Pt Level 3 (23113) Diagnoses Diverticulosis of colon K57.30 Colon polyp K63.5 Chronic constipation K59.09 Heme positive stool R19.5 Hemorrhoids K64.9 Time Spent (min) 35
[2022-11-12 14:20] VITALS: BP 116/66; PULSE 66; BMI 33.5
== END 2022-11-12 14:48 | disposition home or self-care (01) ==
PROVIDERS: PCP Family Medicine; Visit Provider Physician Assistant
DX: K57.30 Diverticulosis of large intestine without perforation or abscess without bleeding (principal); K59.09 Other constipation; R19.5 Other fecal abnormalities; Z86.010 Personal history of colon polyps; K64.8 Other hemorrhoids
CPT/HCPCS: 99214

== ENCOUNTER → 2022-11-12 14:08 | Outpatient (BNVA) | payer OTHER, SELFPAY | PROVIDERS: PCP Family Medicine; Visit Provider Physician Assistant | DX: R19.5 Other fecal abnormalities (principal); K57.30 Diverticulosis of large intestine without perforation or abscess without bleeding; K63.5 Polyp of colon; K64.9 Unspecified hemorrhoids; K59.09 Other constipation; K21.9 Gastro-esophageal reflux disease without esophagitis; Z79.891 Long term (current) use of opiate analgesic | CPT/HCPCS: 99212 ==

== ENCOUNTER 2022-12-19 13:42 | Outpatient (REF) | payer OTHER, SELFPAY ==
[2022-12-19 13:55] LABS: MANUAL DIFF FLAG NO
[2022-12-19 14:08] LABS: Basophils Absolute Auto 0.1 X10*3/uL (0.0-0.2); Basophils Percent Auto 1.3 % (0-2); Eosinophils Absolute Auto 0.2 X10*3/uL (0.0-0.4); Hematocrit 38.7 % (37.0-47.0); Hemoglobin 12.5 g/dl (12.0-16.0); Imm Gran Abs Auto 0.01 X10*3/uL (0.00-0.03); Imm Gran Pct Auto 0.2 % (0.0-0.4); Lymphocytes Absolute Auto 1.5 X10*3/uL (1.2-4.9); Lymphocytes Percent Auto 33.6 % (20-40); Mean Corpuscular HGB Conc 32.3 g/dl (31.0-35.0); Mean Corpuscular Hemoglobin 28.5 pg (27.0-33.0); Mean Corpuscular Volume 88.2 fL (80.0-98.0); Mean Platelet Volume 11.2 fL (9.4-12.3); Monocytes Absolute Auto 0.4 X10*3/uL (0.1-1.2); Monocytes Percent Auto 8.2 % (2-11); Neutrophils Absolute Auto 2.4 x10*3/uL (2.0-8.3); Neutrophils Percent Auto 52.7 % (45-73); Platelet Count 190 X10*3/uL (160-400); Red Blood Count 4.39 X10*6/uL (4.20-5.50); Red Cell Distribution Width 13.4 % (11.0-16.0); White Blood Count 4.5 X10*3/uL (4.8-10.8)
== END 2022-12-19 13:43 | disposition home or self-care (01) ==
LOC: HO.LAB 13:42
PROVIDERS: Visit Provider Physician Assistant
DX: R19.5 Other fecal abnormalities (principal)
CPT/HCPCS: 36415; 85025

== ENCOUNTER 2023-02-15 11:04 | Outpatient (AMB) | payer OTHER, SELFPAY ==
--- NOTE | 2023-02-15 11:19 | A.OFFVIS_ITS ---
Intake Vital Signs 02/15/23 11:25 Height 5 ft 7 in Weight 212 lb 4 oz BMI 33.2 BP 138/76 Blood Pressure Location Lt brachial Position Sitting Respiration 18 Pulse 69 Pulse Source Pulse Oximeter Pulse Oximetry (%) 98 Oxygen Delivery Method Room Air Intake Visit Reasons: LUMBAR RADICULOPATHY Allergies No Known Allergies [No Known Allergies*] Allergy (Verified 02/15/23 11:15) HPI HPI Comments History of Present Illness Details Albertina is a very pleasant 63 year old female who presents to the office today, accompanied by her daughter, for evaluation and management of her chronic lower back pain. She complains of pain across the lower back, worse on the right side, tender to touch across the lower back with shooting pain and tingling down her right leg. Patient reports she has been suffering with this pain for many years. She had laminectomy 02/2021 and reports pain is worse after surgery. Prior to surgery she reported right lower back pain radiating down the right leg, she states they did surgery on the left, therefore the initial pain remains and now she is worse off than before surgery. She states the pain is constant, worse throughout the day and worse with any activity. Pain improves some with rest and with her current medication regime. She is taking prescribed opioids, baclofen, NSAIDs and topical cream that do reduce the pain but it persists at an intolerable lev el. Pain today is rated as 10/10. She has tried PT prior to surgery with no relief. She has 6 steroid injections before 02/2021 which did not provide any pain relief. She followed up with neurosurgery and was offered second surgery with hardware but they could not guarantee any improvement of her back or leg pain so she did not want to proceed with another back surgery at that time. In terms of muscle damage condition is described as aching, throbbing, numb, shocking. Pain is negatively impacting patients enjoyment of life, general activity, mood, normal work, recreational activities, sleep and walking. [facility] Medical History Asthma Chronic pain Colon polyp High cholesterol History of fatty infiltration of liver Hx of cervical cancer Hypothyroid Leukopenia Macular degeneration ANCA on CPAP Surgical History History of back surgery History of excision of mass History of total abdominal hysterectomy and bilateral salpingo-oophorectomy Hx of colonoscopy Hx of tubal ligation Family History Father No problems noted. Mother No problems noted. Daughter No problems noted. Son No problems noted. Sister Breast cancer Colon cancer Brother Liver cancer Brother Cancer of kidney Social History Household Members: Family Housing: Apartment Are you a primary healthcare market consultant to a significant other at home: No Do you presently have visiting nurse or other home services: No Alcohol intake: never Patient Tobacco Use Status: Never used Tobacco Current occupational status: retired and disabled Review of Systems Const All systems reviewed & are unremarkable except as noted in HPI and below Physical Exam Vital Signs: Last Vital Signs Pulse 69 02/15/23 11:25 Resp 18 02/15/23 11:25 BP 138/76 02/15/23 11:25 Pulse Ox 98 02/15/23 11:25 Oxygen Delivery Method Room Air 02/15/23 11:25 BMI result Body Mass Index 33.2 General: awake, alert, oriented. Answers questions appropriately. Fully engaged in examination. Skin: warm, dry, intact HEENT: Normocephalic. Hearing intact. Cardiac: External chest normal in appearance. Respiratory: No cough, audible wheezing or stridor. Abdomen: without gross distension. Neurological: Oriented to person, place, time and situation. Thought process intact. Psychiatric: Appropriate mood and affect. Good judgment and insight. Back/Spine/Pelvis Other: Lumbar exam: Able to transition from sit to stand with minimal assitance Ambulates use of rollator walker Visual inspection without gross abnormality, well healed post surgical scar appreciated midline lumbar Tender to palpation across lower back, right side worse than left. ROM: limited secondary to pain with extension to 5 degrees. flexion to 80 degrees. pain worse with extension. Strength: 5/5 BLE Sensation: intact and symmetric BLE Straight leg raises with and without dorsiflexion positive on right Facet loading positive bilaterally LAUREN positive bilaterally Results Reviewed Results Reviewed: 02/2021 EXAMINATION: MR LUMBAR SPINE WITHOUT AND WITH CONTRAST FINDINGS: Coronal Alignment: There is S-shaped thoracolumbar scoliosis, convex to the left at L4-L5 and to the right at L2-L3 with partially visualized lower thoracic levocurvature. Sagittal Alignment: There is 2 mm of grade 1 spondylolisthesis at L5-S1. There is trace retrolisthesis at L2-L3 and L1-L2. Lordotic curvature is maintained. Lumbosacral Junction: Normal. Vertebral Bodies: Mild chronic loss of height of the posterior aspect of the L5 vertebral body is noted. Otherwise the remaining vertebral body heights are well-maintained. Disc Spaces and Endplates: Moderate disc space height loss with intradiscal degenerative signal changes, including probable intradiscal vacuum disc phenomenon noted at L5-S1 with [id number] spondylosis and Schmorl's nodes. Severe disc space height loss asymmetric to the left at L2-L3 with intradiscal degenerative signal changes and probable intradiscal vacuum disc phenomenon with Schmorl's nodes and [id number] spondylosis. Moderate disc space height loss, intradiscal degenerative signal changes and probable intradiscal vacuum disc phenomenon at L1-L2 with Schmorl's nodes and mild spondylosis. Spinal Canal: There is moderate diffuse epidural lipomatosis throughout the lumbar canal with a constricted, narrowed appearance to the thecal sac and short pedicles consistent with a component of a developmental lumbar spinal canal stenosis. Bone Marrow: Type I marrow signal changes along the endplates at L1-L2, type I and type II marrow signal changes along the endplates at L2-L3. Mild marrow edema noted in the right S1 pedicle adjacent to the facet joint. Conus Medullaris: Terminates at L1-L2. Morphology and signal is normal. No abnormal enhancement. Intradural Nerve Roots: Limited assessment due to motion artifact on the axial T2-weighted images. No abnormal intradural enhancement. L5-S1: Mild grade 1 spondylolisthesis noted with evidence of a previous left-sided hemilaminectomy, with enhancing scar tissue in the left laminectomy defect. Prominent epidural fat at this level with a relatively small thecal sac. Unroofing of the posterior disc margin is noted with diffuse disc bulging and paravertebral/posterolateral disc osteophyte complex bilaterally. There is evidence of a partial facetectomy on the left. There is moderate facet arthropathy on the right. There is severe bilateral neural foraminal stenosis with bilateral L5 nerve root impingement. L4-L5: Mild disc bulging noted, with moderate facet arthropathy and ligamentum flavum thickening with epidural lipomatosis and moderate fatty spinal stenosis. There is bilateral facet arthrosis, with right lateral disc osteophyte complex and moderate right-sided with mild left-sided neural foraminal stenosis. There is a small enhancing synovial cyst arising along the posteroinferior margin of the left facet joint. L3-L4: There are small inferior foraminal disc protrusions noted bilaterally with ligamentum flavum thickening and moderate bilateral facet hypertrophic degenerative change with epidural lipomatosis and mild fatty spinal stenosis. There is moderate right-sided and mild left-sided neural foraminal stenosis. L2-L3: Trace retrolisthesis noted with posterolateral disc osteophyte complex asymmetric to the left with a superimposed left foraminal/extra foraminal disc herniation. Ligamentum flavum thickening is noted with moderate left-sided facet arthropathy. Prominent epidural fat is also noted with mild central spinal canal stenosis. There is moderate left and mild right-sided neural foraminal stenosis, with disc herniation impinging on the exiting left L2 nerve root. L1-L2: There are subarticular disc protrusion bilaterally and small left foraminal disc protrusion with mild ligamentum flavum thickening and mild facet arthrosis. Prominent epidural fat posteriorly. No significant spinal canal stenosis. There is moderate left-sided and okmi-fu-sxxuhhzs right-sided neural foraminal stenosis. There is aoix-uc-kuvfhtvq facet arthropathy on the right at T12-L1 with mild ligamentum flavum thickening without canal or neuroforaminal stenosis. There is bilateral facet arthrosis at T11-T12 and T10-T11 with moderate right-sided neural foraminal stenosis and mild left-sided neural foraminal stenosis at these levels. Paraspinal/Retroperitoneal: The paravertebral soft tissues demonstrate postsurgical changes posterior to the lumbar spinous processes. There is a 1 cm simple-appearing cyst in the mid right kidney. Limited assessment. No specific follow-up for this is recommended based on the current ACR best practice guidelines. IMPRESSION: 1. Multilevel DDD and spondylosis, with the grade 1 spondylolisthesis at L5-S1 and mild retrolisthesis at L1-L2 and L2-L3. 2. Postsurgical changes on the left at L5-S1 as described above. 3. Epidural lipomatosis throughout the lumbar canal with some degree of developmental lumbar spinal canal stenosis with superimposed multilevel disc bulging and posterior element hypertrophic degenerative changes as described above, with qqqk-oq-epnhwonz degrees of spinal canal stenosis. 4. Multilevel bilateral neural foraminal stenosis, severe bilaterally at L5-S1 with bilateral L5 nerve root impingement and to a lesser degree at the levels noted above. Left lateral foraminal/extraforaminal disc herniation at L2-L3 encroaches on the exiting left L2 nerve root. Assessment & Plan Assessment & Plan (1) Post laminectomy syndrome: Code(s): M96.1 - Postlaminectomy syndrome, not elsewhere classified (2) Lumbar facet arthropathy: Code(s): M47.816 - Spondylosis without myelopathy or radiculopathy, lumbar region (3) Lumbar radiculopathy: Code(s): M54.16 - Radiculopathy, lumbar region (4) Myofascial low back pain: Code(s): M54.50 - Low back pain, unspecified Plan Albertina is a very pleasant 63 year old female who presents to the office today for evaluation and management of her chronic lower back pain. History, physical exam and provocative testing consistent with post laminectomy syndrome, facet arthropathy and lumbar radiculopathy. Most recent MRI from 02/2021 reviewed with patient. Discussed options for treatment, given epidural lipomatosis on MRI she is not a candidate for BIGG. Order placed for MRI LS with and without contrast due to patients reported worsening lumbar radicular pain on the right. She requests open MRI, did not tolerate previous closed MRI well. Zynex tens unit ordered, patient given pamphlet with instructions for use. She will expect a call to schedule delivery. PT eval and treat order placed. C/W current medication regime as prescribed by pcp. Discussed options for treatment including diagnostic interventional testing, epidural steroid injections, peripheral nerve stimulation with Sprint, RFA and more permanent neuromodulation. Informational pamphlets provided. Pending results of MRI, consider referral [facility]. She has refused surgery 2 years ago but is open to discussing again. If epidural fat has improved will consider caudal BIGG with catheter. Discussed SCS with João, pamphlets provided. Patient and daughter aware any implantable devices would require mental health clearance. Advantage point pamphlet provided today. All questions and concerns have been answered and patient agrees with the plan. Follow up after MRI, sooner if needed. Orders: Orders MR lumbar spine wo/w con Today M54.16 - Radiculopathy, lumbar region, M96.1 - Postlaminectomy syndrome, not elsewhere classified PT Evaluation and Treatment Today M54.50 - Low back pain, unspecified Coding Level of Care Code New Pt Level 4 (87828) Diagnoses Post laminectomy syndrome M96.1 Lumbar facet arthropathy M47.816 Lumbar radiculopathy M54.16 Myofascial low back pain M54.50
[2023-02-15 11:25] VITALS: BP 138/76; PULSE 69; RESP 18; O2SAT 98; BMI 33.2
== END 2023-02-15 12:01 | disposition home or self-care (01) ==
PROVIDERS: PCP Family Medicine; Visit Provider Registered Nurse Emergency
DX: M96.1 Postlaminectomy syndrome, not elsewhere classified (principal); M47.816 Spondylosis without myelopathy or radiculopathy, lumbar region; M54.16 Radiculopathy, lumbar region; M54.50 Low back pain, unspecified
CPT/HCPCS: 99204

== ENCOUNTER → 2023-02-15 11:04 | Outpatient (BNVA) | payer OTHER, SELFPAY | PROVIDERS: PCP Family Medicine; Visit Provider Registered Nurse Emergency ==

== ENCOUNTER 2023-02-21 10:55 | Outpatient (REF) | payer OTHER, SELFPAY ==
--- NOTE | ~2023-02-21 | MM_ITS ---
EXAMINATION: MM SCREENING DIGITAL BREAST TOMOSYNTHESIS, BILATERAL CLINICAL INFORMATION: Screening. Asymptomatic. Prior benign biopsy right breast. COMPARISON: Mammography: 02/19/2022, and studies dating back to 12/31/2013. TECHNIQUE: Digital breast tomosynthesis is performed in both the craniocaudal and mediolateral oblique views along with computer-aided detection (CAD). Synthesized 2D images are generated from the tomosynthesis. In addition, an added full-field left CC view was obtained. FINDINGS: The breasts are heterogeneously dense, which may obscure small masses (ACR BI-RADS breast composition Category c). Post benign biopsy clip marker again noted posterior 5:00 right breast. There are mild vascular calcifications bilaterally. There are several stable nodular asymmetries in both breasts. In the left breast, far posterior one third, overlying the anterior pectoralis muscle, upper aspect localizing slightly laterally on the tomographic images, for which diagnostic views recommended. Otherwise, there no suspicious masses, suspicious grouped calcifications, or areas of architectural distortion in either breast. The parenchymal pattern is stable from prior exams. No skin or axillary changes. MM/MM tomosynthesis screening BI IMPRESSION: LEFT breast, far posterior one third, slightly upper aspect and localizing slightly laterally on the tomographic images is a 1 view nodular asymmetry for which diagnostic views are recommended. Recommend small paddle spot compression left MLO view, full field exaggerated left CC view, full-field left mediolateral view, and ultrasound if warranted. Otherwise, no suspicious findings in the right breast. Otherwise stable heterogeneously dense nodular parenchymal pattern. ASSESSMENT: BI-RADS BI-RADS 0 - Incomplete: Needs additional Imaging. RECOMMENDATION: 1. Additional views of the LEFT breast as detailed. 2. Targeted ultrasound if warranted after review of the additional views. 3. Radiology department staff will contact the patient for additional imaging. Additional Imaging required This examination should not preclude the clinical evaluation of a suspicious palpable abnormality.
== END 2023-02-21 10:56 | disposition home or self-care (01) ==
LOC: HO.MAMMO 10:55
PROVIDERS: PCP Family Medicine; Visit Provider Family Medicine
DX: Z12.31 Encounter for screening mammogram for malignant neoplasm of breast (principal)
CPT/HCPCS: 77063; 77067

== ENCOUNTER → 2023-02-21 11:00 | Outpatient (BNV) | payer OTHER, SELFPAY | PROVIDERS: PCP Family Medicine; Visit Provider Radiology Diagnostic Radiology | DX: Z12.31 Encounter for screening mammogram for malignant neoplasm of breast (principal) | CPT/HCPCS: 77063; 77067 ==

== ENCOUNTER 2023-04-03 10:58 | Outpatient (REF) | payer OTHER, SELFPAY ==
--- NOTE | ~2023-04-03 | US_ITS ---
EXAMINATION: MM DIAGNOSTIC DIGITAL BREAST TOMOSYNTHESIS, LEFT US BREAST LIMITED, LEFT MAMMOGRAPHY: CLINICAL INFORMATION: Evaluate one view nodular asymmetry seen left MLO view only far posterior localizing slightly laterally along the nipple line. COMPARISON: Mammography: Screening mammography dated 02/21/2023. TECHNIQUE: Digital breast tomosynthesis is performed in the following views, left laterally exaggerated full-field CC view, left full-field mediolateral view, spot compression 3-D left MLO view x2, and full-field left MLO view x1. FINDINGS: The breasts are heterogeneously dense, which may obscure small masses (ACR BI-RADS breast composition Category c). Diagnostic views demonstrate both total effacement of the small 1 view asymmetry, and persistence of the small 1 view asymmetry. It is likely this represents a small posterior lymph node. Ultrasound will be attempted as below. Otherwise, no additional suspicious abnormalities left breast. ULTRASOUND: CLINICAL INFORMATION: Evaluate one view nodular asymmetry far posterior MLO view left breast at nipple line, localizing slightly laterally. COMPARISON: None TECHNIQUE: Targeted sonographic evaluation was performed using a high frequency linear transducer. Selected archived documentation. FINDINGS: LEFT BREAST: There is a mixture of fatty and fibroglandular tissue. No suspicious mass is seen. There is no pathologic acoustic shadowing. No lymph nodes are identified which correlate small asymmetry in question. US/US breast LT limited mamm only IMPRESSION: There are no findings suspicious for malignancy in the left breast. There is a small oval asymmetry on the MLO view of the left breast overlying the pectoralis muscle along the nipple line, localizing slightly laterally, which both effaces and also persists on differing diagnostic views. No correlate on ultrasound could be identified. It is likely this is a small benign lymph node. Six-month interval follow-up mammography recommended to include standard left MLO view, and spot compression left MLO view, as well as a full field exaggerated X CCL view. OVERALL ASSESSMENT: Mammography: BI-RADS 3 - Probably benign finding(s) - 6 month follow-up suggested Ultrasound: BI-RADS 3 - Probably benign finding(s) - 6 month follow-up suggested RECOMMENDATION: 6 Month F/U Results were provided to the patient at time of visit by the technologist. This patient's information was entered into a reminder system with a target due date for their next mammogram.
== END 2023-04-03 10:59 | disposition home or self-care (01) ==
LOC: HO.MAMMO 10:58
PROVIDERS: PCP Family Medicine; Visit Provider Family Medicine
DX: N64.89 Other specified disorders of breast (principal)
CPT/HCPCS: 76642; 77061; 77065

== ENCOUNTER → 2023-04-03 11:00 | Outpatient (BNV) | payer OTHER, SELFPAY | PROVIDERS: PCP Family Medicine; Visit Provider Radiology Diagnostic Radiology | DX: R92.332 Mammographic heterogeneous density, left breast (principal); R92.312 Mammographic fatty tissue density, left breast; R92.322 Mammographic fibroglandular density, left breast | CPT/HCPCS: 76642; 77061; 77065 ==

== ENCOUNTER 2023-04-15 08:11 | Outpatient (AMB) | payer OTHER, SELFPAY ==
--- NOTE | 2023-04-15 08:18 | MHC.OFFVIS ---
Intake Vital Signs 04/15/23 08:20 Height 5 ft 7 in Weight 214 lb BMI 33.5 BP 125/70 Blood Pressure Location Lt brachial Position Sitting Pulse 77 Intake Visit Reasons: follow up/ post cologuard Intake Note: Patient follow up for Patient denies any GI issues. 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 Accompanied by: Daughter Allergies No Known Allergies [No Known Allergies*] Allergy (Verified 04/15/23 08:17) Medication List - Last Reconciled 04/15/23 by Shanna Bingham PA-C acetaminophen ER 650 mg PO Q8H PRN albuterol sulfate 90 mcg/actuation 1 inh inhalation QID antiox.mv [id number] 280-10-2 mg (I-Caps) 1 cap PO DAILY aspirin 81 mg PO DAILY atorvastatin 10 mg PO DAILY baclofen 20 mg PO DAILY benzonatate 100 mg PO TID PRN bisacodyl (Dulcolax (bisacodyl)) 10 mg MD DAILY PRN bupropion HCl 300 mg PO QAM calcium carbonate-vitamin D3 600 mg-10 mcg (400 unit) 1 tab PO DAILY [Centrum Silver 1 tab PO DAILY] cetirizine 10 mg PO DAILY cholecalciferol (vitamin D3) 50 mcg PO DAILY ciclopirox 8% topical clotrimazole 1% appl topical diclofenac sodium 50 mg PO DAILY diclofenac sodium 75 mg PO BID diclofenac sodium 1% topical docusate sodium (Colace) 100 mg PO DAILY fluticasone propionate 50 mcg/actuation (Flonase Allergy Relief) 2 sprays intranasal DAILY gabapentin 300 mg PO BID hydrocortisone 2.5% (Proctosol HC) 1 appl MD BEDTIME PRN levothyroxine 125 mcg PO DAILY levothyroxine 125 mcg PO DAILY lidocaine-prilocaine 2.5-2.5 % topical DAILY loratadine 10 mg PO DAILY methylcellulose (laxative) (Citrucel Sugar Free oral powder) 2 grams PO DAILY PRN naloxone 4 mg/actuation intranasal omega 7-bgc-vlb-fish oil 300-1,000 mg 1 cap PO DAILY omega-3 fatty acids mg PO oxycodone 5 mg PO QID PRN oxycodone-acetaminophen 7.5-325 mg 1 tab PO QID PRN pantoprazole 40 mg PO DAILY polyethylene glycol 3350 1 g PO DAILY sennosides (senna) 17.2 mg PO DAILY HPI HPI Comments History of Present Illness Details A 63 y/o female here for f/u- she was initially referred referred for guiac positive stool- known hemorrhoids- she has BRB on tp a few times back then-she has had no further rectal bleeding at all. Cologuard positive-referred back She has lifelong constipation- she strains she eats fruit- tries to maintain high-fiber diet however not obese excess Appetite is good her reflux well controlled with PPI She had a colonoscopy in 2020 She has no nausea, vomiting, hematemesis, hematochezia fever chills PFSH Medical History Asthma Chronic pain Colon polyp High cholesterol History of fatty infiltration of liver Hx of cervical cancer Hypothyroid Leukopenia Macular degeneration ANCA on CPAP Surgical History History of excision of mass Hx of tubal ligation History of total abdominal hysterectomy and bilateral salpingo-oophorectomy Hx of colonoscopy History of back surgery Family History Father No problems noted. Mother No problems noted. Daughter No problems noted. Son No problems noted. Sister Breast cancer Colon cancer Brother Liver cancer Brother Cancer of kidney Social History Household Members: Family Housing: Apartment Are you a primary respiratory care faculty to a significant other at home: No Do you presently have visiting nurse or other home services: No Alcohol intake: never Patient Tobacco Use Status: Never used Tobacco Current occupational status: retired and disabled Review of Systems Const All systems reviewed & are unremarkable except as noted in HPI and below Card Denies chest pain and Denies dyspnea Resp Denies dyspnea GI Denies abdominal pain, Denies hematochezia, Reports constipation, Denies nausea and Denies vomiting Musc Reports abnormal gait Neuro Reports abnormal gait Physical Exam Vital Signs: Last Vital Signs Pulse 77 04/15/23 08:20 BP 125/70 04/15/23 08:20 BMI result Body Mass Index 33.5 Const General: comfortable and no acute distress Orientation/consciousness: patient oriented x3 Limitations: language barrier and ambulation with walker Eyes Sclerae: sclerae normal Resp Effort & Inspection: normal respiratory effort and able to speak in complete sentences Auscultation: clear to auscultation bilaterally, no rales, no rhonchi and no wheezes Cardio Rate: regular rate Rhythm: regular rhythm Heart sounds: S1 normal heart sound present and S2 normal heart sound present GI Palpation (GI): Soft to palpation and nontender Auscultation: normal bowel sounds Skin General skin exam: no rashes or lesions noted Neuro General: patient oriented x3 Psych Mental Status: mental status grossly normal Speech and movement: Clear speech present Affect: normal affect Thought process: Normal thought process present Thought content: Normal thought content present Results Reviewed Results Reviewed: 2020- Dr. Mcdonough Impression and Post Procedure Diagnosis: Colonoscopy Findings: No polyps were detected. Moderate diverticulosis seen in the sigmoid colon Moderate hemorrhoids on retroflexed exam. Plan: Await pathology results Patient has an appointment on 05/11/19 in the [facility] with SUZIE Davenport . Repeat Colonoscopy in 5 years due to past hx of adenomatous colon polyps. Above findings were reviewed with the patient and diverticulosis handout was given in the discharge area Assessment & Plan Assessment & Plan (1) Chronic constipation: Comment: Likely medication plays a role as well as limited activity Reviewed medications,-consistent bowel regimen maintain high-fiber diet She is not taking MiraLax - will try again Suppositories every 3 day if not adequate BM Rectal cream, avoid straining Declined surgical referral for hemorrhoid consult- again Code(s): K59.09 - Other constipation (2) Colon polyp: Comment: History of adenomas no polyps 2020-repeat colonoscopy 2025 due to history Code(s): K63.5 - Polyp of colon Plan: positive cologuard= Positive fit History of colon polyps Repeat colonoscopy (3) Hemorrhoids: Comment: Moderate hemorrhoids-constipation with straining likely cause of bleeding Increase fiber, fiber supplements, Offer surgical referral-decline Code(s): K64.9 - Unspecified hemorrhoids (4) Positive colorectal cancer screening using Cologuard test: Code(s): R19.5 - Other fecal abnormalities Plan: colonoscopy Plan colonoscopy MG prep- Dr. Mcdonough- established- Orders: Orders Colonoscopy - GI Use Only Today K57.30 - Diverticulosis of large intestine without perforation or abscess without bleeding, K59.09 - Other constipation, K63.5 - Polyp of colon, K64.9 - Unspecified hemorrhoids, R19.5 - Other fecal abnormalities Medications: New bisacodyl (Dulcolax (bisacodyl)) Day before procedure, prep day Take 4 tablets by mouth upon awakening followed by large glass of water 20 mg (4 x 5 mg) PO ONCE 1 day 4 tabs 0RF colonoscopy prep Z12.11 - Encounter for screening for malignant neoplasm of colon polyethylene glycol 3350 (Miralax) Take as directed by mouth the day before your procedure. 238 grams PO ONCE 1 day PRN 238 grams 0RF laxative effect Refilled bisacodyl (Dulcolax (bisacodyl)) 10 mg MD DAILY PRN 30 ea 1RF constipation hydrocortisone 2.5% (Proctosol HC) 1 appl MD BEDTIME PRN 30 grams 3RF hemorrhoids Patient Instructions: 63-year-old female history colon polyps, positive fit positive Cologuard referred for back. Brief episode rectal bleeding his results many months ago. However will be scheduled for repeat colonoscopy, she is agreeable. She is here today with her daughter who also agree Discussed procedure, risks need for escorted due to anesthesia MiraLax Gatorade prep reviewed literature given She will increase MiraLax week prior to prep day to ensure adequate prep Encouraged to call with questions or concerns Coding Level of Care Code Est Pt Level 4 (35184) Diagnoses Chronic constipation K59.09 Colon polyp K63.5 Hemorrhoids K64.9 Positive colorectal cancer screening using Cologuard test R19.5 Time Spent (min) 35 Comment Daughter present
[2023-04-15 08:20] VITALS: BP 125/70; PULSE 77; BMI 33.5
== END 2023-04-15 10:03 | disposition home or self-care (01) ==
PROVIDERS: PCP Family Medicine; Visit Provider Physician Assistant
DX: K59.09 Other constipation (principal); K63.5 Polyp of colon; K64.9 Unspecified hemorrhoids; R19.5 Other fecal abnormalities
CPT/HCPCS: 99214

== ENCOUNTER → 2023-04-15 08:11 | Outpatient (BNVA) | payer OTHER, SELFPAY | PROVIDERS: PCP Family Medicine; Visit Provider Physician Assistant | DX: K59.09 Other constipation (principal); K63.5 Polyp of colon; K64.9 Unspecified hemorrhoids; R19.5 Other fecal abnormalities | CPT/HCPCS: 99212 ==

== ENCOUNTER 2023-06-10 16:28 | Outpatient (REF) | payer OTHER, SELFPAY ==
[2023-06-10 17:43] LABS: MANUAL DIFF FLAG NO
[2023-06-10 17:56] LABS: Basophils Absolute Auto 0.1 X10*3/uL (0.0-0.2); Eosinophils Absolute Auto 0.2 X10*3/uL (0.0-0.4); Eosinophils Percent Auto 3.7 % (0-4); Hematocrit 37.8 % (37.0-47.0); Hemoglobin 12.6 g/dl (12.0-16.0); Imm Gran Abs Auto 0.01 X10*3/uL (0.00-0.03); Imm Gran Pct Auto 0.2 % (0.0-0.4); Lymphocytes Absolute Auto 1.8 X10*3/uL (1.2-4.9); Lymphocytes Percent Auto 35.9 % (20-40); Mean Corpuscular HGB Conc 33.3 g/dl (31.0-35.0); Mean Corpuscular Hemoglobin 28.8 pg (27.0-33.0); Mean Corpuscular Volume 86.5 fL (80.0-98.0); Mean Platelet Volume 12.1 fL (9.4-12.3); Monocytes Absolute Auto 0.5 X10*3/uL (0.1-1.2); Monocytes Percent Auto 9.4 % (2-11); Neutrophils Absolute Auto 2.4 x10*3/uL (2.0-8.3); Neutrophils Percent Auto 49.8 % (45-73); Platelet Count 185 X10*3/uL (160-400); Red Blood Count 4.37 X10*6/uL (4.20-5.50); Red Cell Distribution Width 13.3 % (11.0-16.0); White Blood Count 4.9 X10*3/uL (4.8-10.8)
[2023-06-10 18:20] LABS: Anion Gap 11 (12-20); Blood Urea Nitrogen 13 mg/dL (9-16); Calcium 9.5 mg/dL (8.4-10.2); Carbon Dioxide 24 mmol/L (22-29); Chloride 109 mmol/L (96-108); Estimated Glomerular Filt Rate > 60; Glucose Random 97 mg/dL (60-115); Potassium 3.7 mmol/L (3.3-5.1); Sodium 140 mmol/L (135-145)
[2023-06-10 18:36] LABS: TSH reflex Free T4 1.21 uIU/mL (0.32-4.0)
== END 2023-06-10 16:29 | disposition home or self-care (01) ==
LOC: HO.HHCL 16:28
PROVIDERS: Visit Provider Emergency Medicine
DX: U09.9 Post COVID-19 condition, unspecified (principal); R53.83 Other fatigue
CPT/HCPCS: 36415; 80048; 84443; 85025

== ENCOUNTER 2023-08-26 10:29 | Day surgery (SDC) | payer OTHER, SELFPAY ==
--- NOTE | 2023-08-23 12:20 | HO.ANESPROP2 ---
HPI - Anesthesia Eval Consult details Narrative: 63yo F for Colonoscopy PMFSH Active Problems Active Problems: All Active Problems Positive colorectal cancer screening using Cologuard test (Acute) Myofascial low back pain (Acute) Lumbar facet arthropathy (Acute) Lumbar radiculopathy (Acute) Post laminectomy syndrome (Acute) Hemorrhoids (Acute) Heme positive stool (Acute) Chronic constipation (Acute) Leukopenia (Acute) Diverticulosis of colon (Acute) Chronic pain (Acute) Colon polyp (Acute) Past Medical History Medical History Hx of cervical cancer Hypothyroid Leukopenia History of fatty infiltration of liver Macular degeneration ANCA on CPAP High cholesterol Chronic pain Asthma Colon polyp Family History Family History Father No problems noted. Mother No problems noted. Daughter No problems noted. Son No problems noted. Sister Breast cancer Colon cancer Brother Liver cancer Brother Cancer of kidney Family history of problems with anesthesia: No Surgical History Surgical History History of excision of mass Hx of tubal ligation History of total abdominal hysterectomy and bilateral salpingo-oophorectomy Hx of colonoscopy History of back surgery History of Problems with Anesthesia: Yes (Slow awakening after hysterectomy) Social History Social History Household Members: Family Housing: Apartment Are you a primary school childcare attendant to a significant other at home: No Do you presently have visiting nurse or other home services: No Alcohol intake: never Patient Tobacco Use Status: Never used Tobacco Are you DNR?: No Advance Directives: No Advance Directives Information Provided: Yes Recently lost weight without trying: No Nutrition Risks: No Nutritional Risk Patient : No Current occupational status: retired and disabled Meds Allergies Allergy/AdvReac Type Severity Reaction Status Date / Time No Known Allergies Allergy Verified 04/15/23 08:17 [No Known Allergies*] Home Medications ?Medication ?Instructions ?Recorded ?Confirmed ?Last Taken ?Type albuterol sulfate 90 mcg/actuation 1 inh inhalation QID 03/16/20 04/15/23 Unknown History aerosol inhaler aspirin 81 mg tablet,delayed 81 mg PO DAILY 03/16/20 04/15/23 08/24/23 History release atorvastatin 10 mg tablet 10 mg PO DAILY 03/16/20 04/15/23 Unknown History bupropion HCl 300 mg 24 hr tablet, 300 mg PO QAM 03/16/20 04/15/23 Unknown History extended release calcium carbonate 600 mg-vitamin 1 tab PO DAILY 03/16/20 04/15/23 Unknown History D3 10 mcg (400 unit) tablet cholecalciferol (vitamin D3) 50 50 mcg PO DAILY 03/16/20 04/15/23 Unknown History mcg (2,000 unit) tablet gabapentin 300 mg capsule 300 mg PO BID 03/16/20 04/15/23 Unknown History loratadine 10 mg tablet 10 mg PO DAILY 03/16/20 04/15/23 Unknown History Centrum Silver 1 tab PO DAILY 08/18/20 04/15/23 Unknown History pantoprazole 40 mg tablet,delayed 40 mg PO DAILY 05/21/22 04/15/23 Unknown History release cetirizine 10 mg tablet 10 mg PO DAILY 02/14/23 04/15/23 Unknown History levothyroxine 125 mcg tablet 125 mcg PO DAILY 02/14/23 04/15/23 08/26/23 History Exam Pertinent Lab Results Pertinent Lab Results: Laboratory Tests 06/10/23 16:31 WBC 4.9 Hgb 12.6 Hct 37.8 Plt Count 185 Sodium 140 Potassium 3.7 Chloride 109 H Carbon Dioxide 24 BUN 13 Creatinine 0.91 Assessment and Plan Assessment Anesthesia Assessment: Chart Reviewed Final Anesthetic Review Family History of Problems with Anesthesia: No History of Problems with Anesthesia: Yes (Slow awakening after hysterectomy)
[2023-08-26 11:41] VITALS: BP 146/71; PULSE 88; RESP 20; TEMP 36.8; O2SAT 98; BMI 31.3
[2023-08-26] MEDS: Lactated Ringers 1,000 ML 100 ML IVCONT (12:10)
--- NOTE | 2023-08-26 12:25 | MHC.SHP ---
Pre-Procedural Eval Section A - 24 Hr Update-Section A only Date of Service: 08/26/23 The patient is an INPATIENT: No The patient has been examined within 24 hours of the surgical procedure. The History & Physical has been completed within 30 days and I have reviewed it.: No Section B - Complete if H&P > 30 days Chief Complaint: Positive Cologuard test, rectal bleeding Relevant Family History (Specify if Yes): No Relevant Social History: None Present Medications: see Short Stay Collaborative assessment Medical History: Significant History (Asthma Chronic pain Colon polyp High cholesterol History of fatty infiltration of liver Hx of cervical cancer Hypothyroid Leukopenia Macular degeneration ANCA on CPAP) History of Previous Operations: Relevant previous surgery/procedure and date(s) (History of excision of mass Hx of tubal ligation History of total abdominal hysterectomy and bilateral salpingo-oophorectomy Hx of colonoscopy History of back surgery) Allergies: Allergies Allergy/AdvReac Type Severity Reaction Status Date / Time No Known Allergies Allergy Verified 04/15/23 08:17 [No Known Allergies*] Review of Systems Sugical H&P ROS: Negative: Constitution, Cardiovascular and Respiratory and Yes, Specify: Gastrointestinal (chronic constipation) Exam Surgical H&P Exam: Normal: Heart, Normal: Extremities and Normal: Abdomen Plan Diagnosis/Plan: Unchanged I have reviewed the history and physical and performed a pertinent physical examination on my patient. No changes have occurred unless specified. Time Spent With Patient Time: Total time managing care of this patient today ____ minutes.
--- NOTE | 2023-08-26 13:30 | W.PM.OPN ---
Operative Note Operative Note Date of Service: 08/26/23 Narrative: COLONOSCOPY TILL CECUM WITH BIOPSIES Pre-op diagnosis: Surveillance of colon polyps, positive Cologuard test, rectal bleeding. Post-op diagnosis:? colon polyps, Diverticulosis, Melanosis coli, hemorrhoids Endoscopist:Asad Mcdonough MD Anesthesia:?MAC Consent: Indications for the procedure and potential complications of bleeding, perforation, reaction to medications and missed diagnosis were discussed with the patient and informed consent was obtained. Instrument: Olympus CF H 190 L variable stiffness adult colonoscope Monitoring: Vital signs and clinical assessment, intermittent blood pressure monitoring, continuous EKG monitoring, Pulse oximetry and Carbon Dioxide monitoring were done throughout the procedure. Please see anesthesia flowsheet. Colon withdrawl time was 17 minutes. Procedure: The patient was placed in the left lateral decubitis position and pre-procedure medications were administered. After a digital rectal examination of the ano-rectum, the video colonoscope was inserted into the rectum and advanced through the colon to the cecum. The colonoscope was slowly withdrawn in a retrograde panoramic fashion and the colon mucosa was carefully examined including a retroflexed view of the rectum. Findings and interventions are described below. Procedure Difficulty: without difficulty Findings: Terminal Ileum: Not evaluated Cecum: A 7-8 mm diminutive appearing polyp adjacent to the appendicular orifice - removed with a cold biopsy. 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 Moderate diverticulosis Rectum: Normal Ano-rectum: Moderate internal hemorrhoids Colon preparation: Good after some irrigation. [place] Bowel Preparation Scale Right colon; 2 Transverse colon: 2 Left colon; 2 (0 = Unprepared colon segment with mucosa not seen due to solid stool that cannot be cleared. 1 = Portion of mucosa of the colon segment seen, but other areas of the colon segment not well seen due to staining, residual stool and/or opaque liquid. 2 = Minor amount of residual staining, small fragments of stool and/or opaque liquid, but mucosa of colon segment seen well. 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 Moderate diverticulosis seen in the left colon Moderate hemorrhoids on retroflexed exam - likely source for rectal bleeding. Plan: I will send a letter with biopsy results Repeat Colonoscopy in 5 years if polyps are adenomatous and due to a history of adenomatous colon polyps. Above findings were reviewed with the patient and relevant handouts were given and the discharge area.
--- NOTE | 2023-08-26 13:47 | HO.ANESPROP2 ---
[facility] Active Problems Active Problems: All Active Problems Positive colorectal cancer screening using Cologuard test (Acute) Myofascial low back pain (Acute) Lumbar facet arthropathy (Acute) Lumbar radiculopathy (Acute) Post laminectomy syndrome (Acute) Hemorrhoids (Acute) Heme positive stool (Acute) Chronic constipation (Acute) Leukopenia (Acute) Diverticulosis of colon (Acute) Chronic pain (Acute) Colon polyp (Acute) Past Medical History Medical History Hx of cervical cancer Hypothyroid Leukopenia History of fatty infiltration of liver Macular degeneration ANCA on CPAP High cholesterol Chronic pain Asthma Colon polyp Functional capacity: uses cane/walker Patient : No Family History Family History Father No problems noted. Mother No problems noted. Daughter No problems noted. Son No problems noted. Sister Breast cancer Colon cancer Brother Liver cancer Brother Cancer of kidney Family history of problems with anesthesia: No Surgical History Surgical History History of excision of mass Hx of tubal ligation History of total abdominal hysterectomy and bilateral salpingo-oophorectomy Hx of colonoscopy History of back surgery History of Problems with Anesthesia: Yes (Slow awakening after hysterectomy) Social History Social History Household Members: Family Housing: Apartment Are you a primary childbirth and infant care teacher to a significant other at home: No Do you presently have visiting nurse or other home services: No Alcohol intake: never Patient Tobacco Use Status: Never used Tobacco Are you DNR?: No Advance Directives: No Advance Directives Information Provided: Yes Recently lost weight without trying: No Nutrition Risks: No Nutritional Risk Current occupational status: retired and disabled Meds Allergies Allergy/AdvReac Type Severity Reaction Status Date / Time No Known Allergies Allergy Verified 04/15/23 08:17 [No Known Allergies*] Active Medications: Current Medications Albuterol Sulfate (Albuterol Sulfate (0.083%) 2.5 Mg/3 Ml Vial.Neb) 2.5 mg INHALE ONCE PRN PRN Reason: Shortness of Breath/Wheezing Lactated Ringer's (Lr) 1,000 mls @ 100 mls/hr IVCONT .Q10H LUIS A Last Admin: 08/26/23 12:10 Dose: 100 mls/hr Home Medications ?Medication ?Instructions ?Recorded ?Confirmed ?Last Taken ?Type albuterol sulfate 90 mcg/actuation 1 inh inhalation QID 03/16/20 04/15/23 Unknown History aerosol inhaler aspirin 81 mg tablet,delayed 81 mg PO DAILY 03/16/20 04/15/23 08/24/23 History release atorvastatin 10 mg tablet 10 mg PO DAILY 03/16/20 04/15/23 Unknown History bupropion HCl 300 mg 24 hr tablet, 300 mg PO QAM 03/16/20 04/15/23 Unknown History extended release calcium carbonate 600 mg-vitamin 1 tab PO DAILY 03/16/20 04/15/23 Unknown History D3 10 mcg (400 unit) tablet cholecalciferol (vitamin D3) 50 50 mcg PO DAILY 03/16/20 04/15/23 Unknown History mcg (2,000 unit) tablet gabapentin 300 mg capsule 300 mg PO BID 03/16/20 04/15/23 Unknown History loratadine 10 mg tablet 10 mg PO DAILY 03/16/20 04/15/23 Unknown History Centrum Silver 1 tab PO DAILY 08/18/20 04/15/23 Unknown History pantoprazole 40 mg tablet,delayed 40 mg PO DAILY 05/21/22 04/15/23 Unknown History release cetirizine 10 mg tablet 10 mg PO DAILY 02/14/23 04/15/23 Unknown History levothyroxine 125 mcg tablet 125 mcg PO DAILY 02/14/23 04/15/23 08/26/23 History Exam Height,Weight and Vital Signs: Height 5 ft 7 in Weight 90.718 kg Last Vital Signs Temp 98.3 F 08/26/23 11:41 Pulse 88 08/26/23 11:41 Resp 20 08/26/23 11:41 BP 146/71 H 08/26/23 11:41 Pulse Ox 98 08/26/23 11:41 O2 Del Method Nasal Cannula 08/26/23 11:41 Airway Mallampati Class: II TM Dist: >3cm Neck ROM: Full Denture: Upper and Lower Heart: RRR Lungs: CTA Assessment and Plan Assessment Anesthesia Assessment: Anesthesia Plan Discussed Final Anesthetic Review Family History of Problems with Anesthesia: No History of Problems with Anesthesia: Yes (Slow awakening after hysterectomy) NPO: Yes ASA Class: II Final Preanesthetic Review: Meds/Allgs Chart Reviewed, Consent Obtained/Reviewed and Anes Risks/Benef Reviewed Patient Risk: Low Procedure Risk: Low Anesthetic Plan Anesthetic Plan: MAC: Disposition: Standard PACU
[2023-08-26 14:15] VITALS: BP 116/60; PULSE 75; RESP 16; TEMP 36.2; O2SAT 96
[2023-08-26 14:30] VITALS: BP 116/60; PULSE 81; RESP 16; TEMP 36.2; O2SAT 96
[2023-08-26 14:44] VITALS: BP 115/96; PULSE 75; RESP 16; TEMP 36.2; O2SAT 98
== END 2023-08-26 14:48 | disposition home or self-care (01) ==
PROVIDERS: PCP Family Medicine; Visit Provider Internal Medicine Gastroenterology
PROC: 0DJD8ZZ Inspection of Lower Intestinal Tract, Via Natural or Artificial Opening Endoscopic (ICD-10-PCS; CPT 45378; principal; 2023-08-26 13:50)
DX: R19.5 Other fecal abnormalities (principal); Z86.010 Personal history of colon polyps; K62.5 Hemorrhage of anus and rectum; K63.5 Polyp of colon; K63.89 Other specified diseases of intestine; K57.30 Diverticulosis of large intestine without perforation or abscess without bleeding; K64.8 Other hemorrhoids; K76.0 Fatty (change of) liver, not elsewhere classified; E78.00 Pure hypercholesterolemia, unspecified; D72.819 Decreased white blood cell count, unspecified; J45.909 Unspecified asthma, uncomplicated; G47.33 Obstructive sleep apnea (adult) (pediatric); Z99.89 Dependence on other enabling machines and devices; Z79.82 Long term (current) use of aspirin; Z79.899 Other long term (current) drug therapy; Z79.51 Long term (current) use of inhaled steroids; Z98.890 Other specified postprocedural states
CPT/HCPCS: 45380; 88305; J2704

== ENCOUNTER → 2023-08-26 10:29 | Outpatient (BNV) | payer OTHER, SELFPAY | PROVIDERS: PCP Family Medicine; Visit Provider Internal Medicine Gastroenterology | DX: Z12.11 Encounter for screening for malignant neoplasm of colon (principal); R19.5 Other fecal abnormalities; Z86.010 Personal history of colon polyps; K63.5 Polyp of colon; K62.5 Hemorrhage of anus and rectum; K63.89 Other specified diseases of intestine; K57.30 Diverticulosis of large intestine without perforation or abscess without bleeding | CPT/HCPCS: 45380 ==

== ENCOUNTER → 2023-10-07 11:30 | Outpatient (BNV) | payer OTHER, SELFPAY | PROVIDERS: PCP Family Medicine; Visit Provider Radiology Diagnostic Radiology | DX: R92.8 Other abnormal and inconclusive findings on diagnostic imaging of breast (principal) | CPT/HCPCS: 77065; G0279 ==

== ENCOUNTER 2023-10-07 11:41 | Outpatient (REF) | payer OTHER, SELFPAY ==
--- NOTE | ~2023-10-07 | MM_ITS ---
EXAMINATION: MM DIAGNOSTIC DIGITAL BREAST TOMOSYNTHESIS, LEFT MAMMOGRAPHY: CLINICAL INFORMATION: Evaluate one view nodular asymmetry seen left MLO view only far posterior localizing slightly laterally along the nipple line. COMPARISON: Mammography: Diagnostic left mammogram 04/03/2023 with diagnostic left ultrasound. Screening mammography dated 02/21/2023. TECHNIQUE: Digital left breast tomosynthesis is performed in the following views, left laterally exaggerated full-field CC view, left full-field mediolateral view, spot compression 3-D left MLO view x2, and full-field left MLO view x1. FINDINGS: There are scattered areas of fibroglandular density (ACR BI-RADS breast composition Category b). Diagnostic views again demonstrate an extremely far laterally located oval isodense mass with a fatty notch consistent with a far lateral intramammary lymph node. This measures approximately 10 mm in length, and lies just deep to the lateral breast skin. It is most consistent with a stable intramammary lymph node. This can be seen on the 02/14/2021 exam and is unchanged. It is therefore benign. An inferior circumscribed subcentimeter density is also unchanged in the inferomedial aspect left breast, possibly a skin lesion. Otherwise, no additional suspicious abnormalities left breast. No interval change in the parenchymal pattern. MM/MM tomosynthesis diagnostic LT IMPRESSION: -There are no findings suspicious for malignancy in the left breast. -There is a small oval asymmetry on the MLO view of the left breast overlying the pectoralis muscle along the nipple line, localizing slightly laterally, which both effaces and also persists on differing the 10 mm oval asymmetry is again seen on the MLO view, far lateral lying just deep to the skin, this time demonstrating a clear fatty notch. This is consistent with an intramammary lymph node. This is unchanged dating back to 2020, and therefore benign. No further follow-up recommended. -Recommend the patient return to routine annual screening. OVERALL ASSESSMENT: Mammography: BI-RADS 2 - Benign Findings RECOMMENDATION: 1 year F/U Results were provided to the patient at time of visit by the technologist. This patient's information was entered into a reminder system with a target due date for their next mammogram.
== END 2023-10-07 11:42 | disposition home or self-care (01) ==
LOC: HO.MAMMO 11:41
PROVIDERS: PCP Family Medicine; Visit Provider Family Medicine
DX: R92.2 Inconclusive mammogram (principal)
CPT/HCPCS: 77061; 77065

== ENCOUNTER 2023-11-11 11:18 | Emergency (ER) | payer OTHER, SELFPAY ==
[2023-11-11 11:34] VITALS: BP 114/85; BP 142/72; PULSE 70; PULSE 82; RESP 23; TEMP 36.4; O2SAT 100; BMI 32.3
[2023-11-11 11:40] VITALS: BP 114/85; PULSE 70; RESP 23; TEMP 36.4; O2SAT 100
[2023-11-11 12:00] VITALS: BP 114/85; PULSE 60; RESP 18; TEMP 36.2
--- NOTE | 2023-11-11 12:50 | ED_ITS ---
HPI - Anxiety General Chief Complaint: Anxiety Stated Complaint: ANXIETY PER EMS Time Seen by Provider: 11/11/23 12:12 Source: patient, family and EMS Mode of arrival: EMS Limitations: no limitations History of Present Illness ED Provider: Anastacio HPI narrative: 63-year-old female with chronic right-sided back pain and weakness to right leg presents to emergency department complaining of feeling anxious. She states she woke up this morning from 7-11 she denies any chest pain shortness breath nausea vomiting or diarrhea she denies any falls or injuries she has taken anything for the anxiety she is on gabapentin and other medications for her back pain. MD complaint: anxiety Related Data Home Medications ?Medication ?Instructions ?Recorded ?Confirmed albuterol sulfate 90 mcg/actuation 1 inh inhalation QID 03/16/20 04/15/23 aerosol inhaler aspirin 81 mg tablet,delayed 81 mg PO DAILY 03/16/20 04/15/23 release atorvastatin 10 mg tablet 10 mg PO DAILY 03/16/20 04/15/23 bupropion HCl 300 mg 24 hr tablet, 300 mg PO QAM 03/16/20 04/15/23 extended release calcium carbonate 600 mg-vitamin 1 tab PO DAILY 03/16/20 04/15/23 D3 10 mcg (400 unit) tablet cholecalciferol (vitamin D3) 50 50 mcg PO DAILY 03/16/20 04/15/23 mcg (2,000 unit) tablet gabapentin 300 mg capsule 300 mg PO BID 03/16/20 04/15/23 loratadine 10 mg tablet 10 mg PO DAILY 03/16/20 04/15/23 Centrum Silver 1 tab PO DAILY 08/18/20 04/15/23 pantoprazole 40 mg tablet,delayed 40 mg PO DAILY 05/21/22 04/15/23 release cetirizine 10 mg tablet 10 mg PO DAILY 02/14/23 04/15/23 levothyroxine 125 mcg tablet 125 mcg PO DAILY 02/14/23 04/15/23 Previous Rx's ?Medication ?Instructions ?Recorded fluticasone propionate 50 2 spray intranasal DAILY #16 grams 05/23/22 mcg/actuation nasal spray,suspension (Flonase Allergy Relief) hydroxyzine HCl 10 mg tablet 10 mg PO TID PRN anxiety #14 tabs 11/11/23 Allergies Allergy/AdvReac Type Severity Reaction Status Date / Time No Known Allergies Allergy Verified 11/11/23 11:39 [No Known Allergies*] Review of Systems Review of Systems: Review of systems: General: Patient denies any fever chills recent illness or falls Musculoskeletal: Back pain no body aches or other injuries HEENT: denies headache, runny nose, ear pain Respiratory: denies shortness of breath, cough Cardiovascular: no chest pain or palpitations : denies dysuria, frequency Abdomen: no nausea vomiting denies abdominal pain Extremities: no swelling, no pain Skin: no diaphoresis Yes all other systems are reviewed and are negative PMFSH Past Medical History Medical History Hx of cervical cancer Hypothyroid Leukopenia History of fatty infiltration of liver Macular degeneration ANCA on CPAP High cholesterol Chronic pain Asthma Colon polyp Surgical History History of excision of mass Hx of tubal ligation History of total abdominal hysterectomy and bilateral salpingo-oophorectomy Hx of colonoscopy History of back surgery Family History Family History Father No problems noted. Mother No problems noted. Daughter No problems noted. Son No problems noted. Sister Breast cancer Colon cancer Brother Liver cancer Brother Cancer of kidney Social History Social History Household Members: Family Housing: Apartment Are you a primary home health care social worker to a significant other at home: No Do you presently have visiting nurse or other home services: No Alcohol intake: never Patient Tobacco Use Status: Never used Tobacco Smoked in Last 30 Days: No Advance Directives: No Advance Directives Information Provided: No Do you have a plan to hurt others: No Plan Patient : No Current occupational status: retired and disabled Physical Exam Vital Signs: Vital Signs: Last Vital Signs Temp 97.1 F 11/11/23 12:00 Pulse 60 11/11/23 12:00 Resp 18 11/11/23 12:00 BP 114/85 11/11/23 12:00 Pulse Ox 100 11/11/23 11:40 O2 Del Method Room Air 11/11/23 12:00 BMI result Body Mass Index 32.3 General: Well-appearing well-nourished in no signs of distress HEENT: Normocephalic atraumatic Neck: No signs of JVD, no masses no tenderness or lymphadenopathy Cardiovascular: Regular rate and rhythm Respiratory: Clear to auscultation bilaterally Abdomen: Soft nontender no masses Extremities: Right leg is weak able to lift it off able to bend the knee but definitely not as much strength as the left this is chronic problem for the patient Normal pedal pulses no signs of edema Skin: Dry warm no rashes Back: No tenderness full ROM Course Reevaluation(s) Reevaluation #1: Patient is feeling better is okay with plan to go home I will send her home with hydroxyzine discharge Medications Administered Discontinued Medications Generic Name Dose Route Start Last Admin Trade Name Ginny PRN Reason Stop Dose Admin Hydroxyzine HCl 10 mg 11/11/23 12:50 11/11/23 12:57 Hydroxyzine Hcl 10 Mg Tablet PO 11/11/23 12:51 10 mg ONCE ONE Administration Medical Decision Making Medical Decision Making [facility] Narrative: I do think this is back pain related anxiety outpatient some hydroxyzine patient benefit from appointment with Dr. Eduard bose under control Differential Diagnosis Differential Diagnoses: The differential diagnosis associated with the presentation includes Anxiety very unlikely ACS patient has vitals has no chest pain denies shortness of breath states it sometimes hurts when she takes a breath but it isn't always she states she has chronic back pain it is making her anxious Lab Data [facility] Lab Attestation statement: I reviewed the patient's lab results. Independent Interpretation I performed an independent interpretation of an: EKG Interpretation: Rate 58 normal sinus rhythm normal intervals no signs of ischemia no change from previous interpreted by me Independent Historian Clinical information obtained from an independent historian. History obtained from or confirmed by: Other External Record Review External record reviewed: Inpatient record, Office record and Outpatient record Chronic Conditions I will send patient home on hydroxyzine Discharge Plan Discharge Clinical Impression: Back pain, Anxiety Patient Disposition: Home, Self-Care Instructions: Back Pain (ED), Anxiety (ED) Additional Instructions: You were seen today for back pain and anxiety. You are on several controlled substances for your back including gabapentin. You will likely benefit from more medications for pain and anxiety and should have discuss other options. You had a EKG which was normal. If you have worsening pain or any other concerns please return to the ER. Prescriptions: New hydroxyzine HCl 10 mg tablet 10 mg PO TID PRN (Reason: anxiety) Qty: 14 0RF No Action Centrum Silver 1 tab PO DAILY pantoprazole 40 mg Tablet,Delayed Release (Dr/Ec) 40 mg PO DAILY fluticasone propionate [Flonase Allergy Relief] 50 mcg/actuation spray,suspension 2 spray intranasal DAILY Qty: 16 0RF Rx Instructions: administer into each nostril bupropion HCl 300 mg tablet extended release 24 hr 300 mg PO QAM gabapentin 300 mg capsule 300 mg PO BID albuterol sulfate 90 mcg/actuation HFA aerosol inhaler 1 inh inhalation QID atorvastatin 10 mg tablet 10 mg PO DAILY loratadine 10 mg tablet 10 mg PO DAILY calcium carbonate-vitamin D3 600 mg(1,500mg) -400 unit tablet 1 tab PO DAILY aspirin 81 mg tablet,delayed release (DR/EC) 81 mg PO DAILY cholecalciferol (vitamin D3) 50 mcg (2,000 unit) tablet 50 mcg PO DAILY cetirizine 10 mg tablet 10 mg PO DAILY levothyroxine 125 mcg tablet 125 mcg PO DAILY Print Language: Kinyarwanda
--- NOTE | 2023-11-11 12:53 | ECG_ITS ---
Test Reason : ANXITY Blood Pressure : / mmHG Vent. Rate : 058 BPM Atrial Rate : 058 BPM P-R Int : 164 ms QRS Dur : 090 ms QT Int : 428 ms P-R-T Axes : 057 -25 031 degrees QTc Int : 420 ms Poor data quality, interpretation may be adversely affected Sinus bradycardia Otherwise normal ECG When compared with ECG of 24-JAN-2011 13:19, No significant change was found Referred By: Julio Zaldivar Electronically Signed By:NATHEN MELENDEZ MD
[2023-11-11] MEDS: hydrOXYzine HCL 10 MG TABLET PO (12:57)
[2023-11-11 14:45] VITALS: BP 153/77; PULSE 67; RESP 16; TEMP 36.8; O2SAT 98
== END 2023-11-11 14:49 | disposition home or self-care (01) ==
PROVIDERS: Emergency Provider Student in an Organized Health Care Education/Training Program; PCP Family Medicine
DX: M54.50 Low back pain, unspecified (principal); R00.1 Bradycardia, unspecified; F41.1 Generalized anxiety disorder; R53.1 Weakness; Z79.899 Other long term (current) drug therapy
CPT/HCPCS: 93005; 99283; 99285

== ENCOUNTER → 2023-11-11 12:53 | Outpatient (BNV) | payer OTHER, SELFPAY | PROVIDERS: Emergency Provider Student in an Organized Health Care Education/Training Program; PCP Family Medicine; Visit Provider Internal Medicine Cardiovascular Disease | DX: R00.1 Bradycardia, unspecified (principal) | CPT/HCPCS: 93010 ==

== ENCOUNTER 2023-11-13 12:17 | Emergency (ER) | payer OTHER, SELFPAY ==
--- NOTE | ~2023-11-13 | CT_ITS ---
EXAMINATION: CT ABDOMEN AND PELVIS WITH CONTRAST CLINICAL INFORMATION: Lower abdominal pain COMPARISON: Ultrasound abdomen 11/13/2023, CT abdomen pelvis 08/14/2018 TECHNIQUE: Multidetector volumetric images were obtained from the superior aspect of the liver through the pubic symphysis following administration 85 mL of Omnipaque 350 intravenous contrast. Sagittal and coronal reformatted images were obtained on the technologist's workstation. Oral contrast: No This CT examination was performed using dose optimization techniques as appropriate, variously including the following: *Automated exposure control *Adjustment of mA and/or kV according to patient size (this includes techniques or standardized protocols for targeted exams where dose is matched to indication/reason for exam; i.e. extremities or head) *Use of iterative reconstruction technique DLP: 917 mGy-cm FINDINGS: LUNG BASES: The visualized lung bases are unremarkable. LIVER, GALLBLADDER, AND BILIARY TREE: The liver is enlarged measuring 19.2 cm in greatest length. No focal hepatic lesion or biliary ductal dilatation is present. The gallbladder is unremarkable with no evidence of radiopaque gallstones, gallbladder wall thickening, or obvious pericholecystic inflammatory changes. PANCREAS: Unremarkable. SPLEEN: Unremarkable. ADRENAL GLANDS: Unremarkable. KIDNEYS AND URETERS: The kidneys are normal in size, shape, and attenuation. No hydronephrosis, hydroureter, or calculi seen. No perinephric stranding. A benign right-sided 1.3 cm Bosniak class I renal cyst is noted which requires no additional imaging or follow up. No solid renal masses are seen. BLADDER: Unremarkable. GASTROINTESTINAL TRACT: The small and large bowel are unremarkable. The appendix is unremarkable. ABDOMINAL WALL: No significant hernia is appreciated. LYMPH NODES: Normal. VASCULAR: Unremarkable. PELVIC VISCERA: The uterus is not seen. An abnormal adnexal mass is not detected. No free intraperitoneal fluid is present. OSSEOUS STRUCTURES: Degenerative changes are present from T12 through S1 with a biconvex scoliosis. CT/CT abdomen pelvis w IV con IMPRESSION: 1. A cause for the patient's lower abdominal pain has not been found. 2. Incidental note made of mild hepatomegaly, degenerative changes in the spine and a benign right renal cyst which requires no additional imaging or follow up. Fleischner guidelines were followed.
--- NOTE | ~2023-11-13 | XR_ITS ---
EXAMINATION: XR CHEST CLINICAL INFORMATION: Shortness of breath. COMPARISON: 05/23/2022 TECHNIQUE: 2 views of the chest were obtained. FINDINGS: Low lung volumes. No focal consolidation. No pleural effusion. Cardiac silhouette is unchanged. XR/XR chest 2V IMPRESSION: No acute abnormality.
--- NOTE | ~2023-11-13 | US_ITS ---
EXAMINATION: US ABDOMEN LIMITED CLINICAL INFORMATION: Right upper quadrant abdominal pain. COMPARISON: CT chest 08/16/2022 abdominal ultrasound 04/06/2019, CT abdomen pelvis 08/14/2018 TECHNIQUE: Real-time imaging of the right upper quadrant abdominal viscera. FINDINGS: PANCREAS: The majority of the pancreas is obscured by bowel gas and could not be evaluated LIVER: The liver is normal in size. The liver contour is normal. There is diffuse increased liver parenchymal echogenicity, consistent with hepatic steatosis. No focal hepatic lesion. There is no intrahepatic biliary duct dilatation seen. GALLBLADDER: The gallbladder is physiologically distended without evidence of stones, sludge, polyps, wall thickening or pericholecystic fluid. COMMON BILE DUCT: Normal in caliber measuring 0.5 cm in diameter. RIGHT KIDNEY: No hydronephrosis. No renal calculi. A benign mid renal 1.8 cm Bosniak class I renal cyst is noted which requires no additional imaging or follow up. No solid renal masses are seen.. The kidney measures 10.6 cm in maximum dimension. FREE FLUID: None. US/US abdomen limited IMPRESSION: Hepatic steatosis.
[2023-11-13 12:26] VITALS: BP 148/68; PULSE 75; RESP 24; TEMP 36.7; O2SAT 99; BMI 27.5
--- NOTE | 2023-11-13 12:26 | ED_ITS ---
HPI - General Adult General Chief complaint: General Medical Stated complaint: Diff breathing Time Seen by Provider: 11/13/23 18:26 Source: patient, family and lab support technician Mode of arrival: ambulatory History of Present Illness ED Provider: Dr Swanson HPI narrative: 63-year-old female who presents again with agitation, hyperventilation, fanning herself, stating that she feels flushed and has been taking all medications as prescribed. Denies any fevers or chills, was seen here proximally 2 days ago for same symptoms. Related Data Home Medications ?Medication ?Instructions ?Recorded ?Confirmed albuterol sulfate 90 mcg/actuation 1 inh inhalation QID 03/16/20 04/15/23 aerosol inhaler aspirin 81 mg tablet,delayed 81 mg PO DAILY 03/16/20 04/15/23 release atorvastatin 10 mg tablet 10 mg PO DAILY 03/16/20 04/15/23 bupropion HCl 300 mg 24 hr tablet, 300 mg PO QAM 03/16/20 04/15/23 extended release calcium carbonate 600 mg-vitamin 1 tab PO DAILY 03/16/20 04/15/23 D3 10 mcg (400 unit) tablet cholecalciferol (vitamin D3) 50 50 mcg PO DAILY 03/16/20 04/15/23 mcg (2,000 unit) tablet gabapentin 300 mg capsule 300 mg PO BID 03/16/20 04/15/23 loratadine 10 mg tablet 10 mg PO DAILY 03/16/20 04/15/23 Centrum Silver 1 tab PO DAILY 08/18/20 04/15/23 pantoprazole 40 mg tablet,delayed 40 mg PO DAILY 05/21/22 04/15/23 release cetirizine 10 mg tablet 10 mg PO DAILY 02/14/23 04/15/23 levothyroxine 125 mcg tablet 125 mcg PO DAILY 02/14/23 04/15/23 Previous Rx's ?Medication ?Instructions ?Recorded fluticasone propionate 50 2 spray intranasal DAILY #16 grams 05/23/22 mcg/actuation nasal spray,suspension (Flonase Allergy Relief) hydroxyzine HCl 10 mg tablet 10 mg PO TID PRN anxiety #14 tabs 11/11/23 loperamide 2 mg tablet (Diamode) 2 mg PO Q4H PRN loose stool #20 11/14/23 tabs Allergies Allergy/AdvReac Type Severity Reaction Status Date / Time No Known Allergies Allergy Verified 11/13/23 12:30 [No Known Allergies*] Review of Systems 2 Review of Systems: Pertinent positives and negatives as stated in [facility] Past Medical History Source: nursing notes reviewed Medical History Hx of cervical cancer Hypothyroid Leukopenia History of fatty infiltration of liver Macular degeneration ANCA on CPAP High cholesterol Chronic pain Asthma Colon polyp Surgical History History of excision of mass Hx of tubal ligation History of total abdominal hysterectomy and bilateral salpingo-oophorectomy Hx of colonoscopy History of back surgery Family History Family History Father No problems noted. Mother No problems noted. Daughter No problems noted. Son No problems noted. Sister Breast cancer Colon cancer Brother Liver cancer Brother Cancer of kidney Social History Social History Household Members: Family Housing: Apartment Are you a primary physician primary care sports medicine to a significant other at home: No Do you presently have visiting nurse or other home services: No Alcohol intake: never Patient Tobacco Use Status: Never used Tobacco Advance Directives: No Advance Directives Information Provided: Yes Do you have a plan to hurt others: No Plan Current occupational status: retired and disabled Physical Exam ED Vital Signs: Vital Signs - 24 hr 11/13/23 12:26 11/13/23 19:14 11/13/23 22:56 Temperature 98.1 F 97.9 F 98.5 F Pulse Rate 75 62 63 Respiratory Rate 24 H 20 20 Blood Pressure 148/68 H 148/84 H 131/58 L Pulse Oximetry 99 96 99 Oxygen Delivery Method Room Air Room Air Room Air BMI result Body Mass Index 27.5 VITAL SIGNS: Reviewed. GENERAL: Well developed, well nourished, in no acute distress. HEAD: Normocephalic/atraumatic EYES: PERRLA, EOMI EARS: Ext canals without abnormality NOSE: Nares patent bilateral OROPHARYNX: no oral lesions noted, posterior pharynx clear NECK: Supple, no adenopathy LUNGS: Normal breath sounds. No adventitious sounds or accessory muscle use. SpO2<96> CARDIOVASCULAR: Regular rate and rhythm without noted murmurs, no JVD or lower extremity edema. ABDOMEN: Soft, non-tender, non-distended with bowel sounds. MUSCULOSKELETAL: No tenderness, deformities, or effusions noted on gross inspection. EXTREMITIES: No cyanosis, clubbing or edema. SKIN: Inspection of the skin reveals no rashes NEUROLOGIC: Alert and oriented x 4. Strength and sensation to light touch were grossly intact x 4. Course Course Course Narrative: This is an RME: Additional HPI, ROS, PE not included below will be deferred to primary provider. RME assessment and note performed by: Isabella Lester PA-C This is a [id number]-female who presents to the ER with complaints of increased anxiety, weakness, dizziness x 3 days. Pt was seen on 11/10 for same symptoms and was discharged on hydroxyzine. She had a fall yesterday, no head strike or LOC, reports that she was feeling weak and felt anxious and her legs gave out on her. Plan: Labs, EKG, further ER evaluation needed. Medications Administered Discontinued Medications Generic Name Dose Route Start Last Admin Trade Name Freq PRN Reason Stop Dose Admin Al Hydroxide/Mg Hydroxide 30 ml 11/13/23 20:53 11/13/23 21:19 Magnesium Hydrox/Alum Hydrox 30 Ml Oral.Susp PO 11/13/23 20:54 30 ml ONCE ONE Administration Hydroxyzine HCl 50 mg 11/13/23 19:48 11/13/23 20:16 Hydroxyzine Hcl 50 Mg Tablet PO 11/13/23 19:49 50 mg ONCE ONE Administration Iohexol 85 ml 11/13/23 22:42 11/13/23 22:43 Iohexol 350 Mg/Ml 100 Ml Infus..Btl IV 11/13/23 22:43 85 ml ONCE ONE Administration Lidocaine HCl 10 ml 11/13/23 20:53 11/13/23 21:19 Lidocaine Hcl Viscous 2 % 15 Ml Solution MUCOUS MEM 11/13/23 20:54 10 ml ONCE ONE Administration Lorazepam 1 mg 11/13/23 21:27 11/13/23 21:59 Lorazepam 1 Mg Tablet PO 11/13/23 21:28 1 mg ONCE ONE Administration Medical Decision Making Medical Decision Making MDM Narrative: 63-year-old female with history and clinical presentation, DDX: Anxiety, panic attack, on review of charting it appears that patient responded well to hydroxyzine at her last visit but states that the medication is not working at home. She denies any constitutional symptoms. I ordered 50 mg of hydroxyzine for the patient. I reviewed all investigations and hematologic indices are negative for leukocytosis/anemia/thrombocytopenia. Coagulation studies are within normal limits. Chemistry indices negative for STEVE/electrolyte/liver enzyme derangements, I sensitivity troponin is detectable but not elevated and TSH is remaining within normal limits. Viral testing is negative. Chest x-ray does not identify any infiltrate or venous congestion and ultrasound preliminary read does not demonstrate any evidence to suggest cholelithiasis or cholecystitis. EKG: Normal sinus rhythm, HR-78, no STEMI, NH/QRS/QTC is within normal limits. Patient denying any improvement after the hydroxyzine, is unable to characterize her symptoms. Patient will get a GI cocktail and re-evaluate. Reviewed all workup with patient and daughter at bedside, patient still looks uncomfortable although now is noted to be lying in the gurney, will proceed with 1 mg of Ativan p.o. and proceed with CT abdomen pelvis given that patient has also had a nonbloody episode of diarrhea and is complaining of left-sided abdominal discomfort. She otherwise remains hemodynamically stable. Signed out to Dr. Diaz to follow-up CT scan of abdomen pelvis as well as re- evaluation after Ativan. -I received sign-out from my colleague Dr. Jasso;e -CT scan of the abdomen and pelvis does not show any acute abnormality. -patient's vitals stable, resting comfortably, does not seem to be anxious. I discussed the CT scan findings with the patient, patient feels well to go home Differential Diagnosis Differential Diagnoses: The differential diagnosis associated with the presentation includes Please see the discussion Admission/Observation Consideration of admission/observation: Escalation of care including admission/observation considered Please see the discussion above Lab Data MDM Lab Attestation statement: I reviewed the patient's lab results. Please see the discussion above 11/13/23 13:00 11/13/23 13:00 Labs: Lab Results 11/13/23 11/13/23 11/13/23 Range/Units 13:00 15:23 19:04 WBC 4.8 (4.8-10.8) X10*3/uL RBC 4.41 (4.20-5.50) X10*6/uL Hgb 12.6 (12.0-16.0) g/dl Hct 37.4 (37.0-47.0) % MCV 84.8 (80.0-98.0) fL MCH 28.6 (27.0-33.0) pg MCHC 33.7 (31.0-35.0) g/dl RDW 13.0 (11.0-16.0) % Plt Count 190 (160-400) X10*3/uL MPV 11.7 (9.4-12.3) fL Immature Gran % (Auto) 0.2 (0.0-0.4) % Neut % (Auto) 68.2 (45-73) % Lymph % (Auto) 24.1 (20-40) % [place] % (Auto) 5.7 (2-11) % Eos % (Auto) 1.0 (0-4) % Baso % (Auto) 0.8 (0-2) % Lymph # (Auto) 1.2 (1.2-4.9) X10*3/uL [place] # (Auto) 0.3 (0.1-1.2) X10*3/uL Eos # (Auto) 0.1 (0.0-0.4) X10*3/uL Baso # (Auto) 0.0 (0.0-0.2) X10*3/uL Abs Immat Gran (auto) 0.01 (0.00-0.03) X10*3/uL Absolute Neuts (auto) 3.3 (2.0-8.3) x10*3/uL Absolute Nucleated RBC 0.000 (0.0-0.012) X10*3/uL Nucleated RBC % (auto) 0.0 (0.0-0.2) /100WBC PT 13.1 (11.1-13.3) SEC INR 1.1 (0.9-1.1) Sodium 144 (135-145) mmol/L Potassium 3.5 (3.3-5.1) mmol/L Chloride 110 H (96-108) mmol/L Carbon Dioxide 21 L (22-29) mmol/L Anion Gap 17 (12-20) BUN 13 (9-16) mg/dL Creatinine 0.77 (0.5-1.4) mg/dL Estim Creat Clear Calc 91.2 Estimated GFR > 60 POC Glucose 107 (60-115) mg/dL Random Glucose 105 (60-115) mg/dL Calcium 9.8 (8.4-10.2) mg/dL Magnesium 2.0 (1.6-2.6) mg/dL Total Bilirubin 0.6 (0.0-1.0) mg/dL Direct Bilirubin 0.2 (0.0-0.5) mg/dL AST 34 H (5-31) U/L ALT 28 (0-31) U/L Alkaline Phosphatase 96 (39-117) U/L Troponin I High Sens 2.8 (<3.5-17.0) ng/L Total Protein 7.7 (6.5-8.0) g/dL Albumin 4.4 (3.5-5.0) g/dL TSH 3.19 (0.32-4.0) uIU/mL Urine Color Yellow Urine Appearance Clear Urine pH >= 9.0 (5.0-9.0) Ur Specific [place] 1.010 (1.005-1.025) Urine Protein Negative (Neg-Trace) mg/dL Urine Glucose (UA) Negative (Negative) mg/dL Urine Ketones Negative (Negative) mg/dL Urine Blood Negative (Negative) Urine Nitrite Negative (Negative) Ur Leukocyte Esterase Negative (Negative) Influenza Type A (PCR) NEGATIVE (Negative) Influenza Type B (PCR) NEGATIVE (Negative) RSV RNA Qual (PCR) NEGATIVE (Negative) SARS-CoV-2 RNA (RT-PCR) NEGATIVE (Negative) Independent Interpretation I performed an independent interpretation of an: EKG Interpretation: Please see the discussion above Radiology Impression Discussion of test interpretation with radiology: I have reviewed the radiologist's reading. Radiologist Impression: Please see the discussion above LUNG BASES: The visualized lung bases are unremarkable. LIVER, GALLBLADDER, AND BILIARY TREE: The liver is enlarged measuring 19.2 cm in greatest length. No focal hepatic lesion or biliary ductal dilatation is present. The gallbladder is unremarkable with no evidence of radiopaque gallstones, gallbladder wall thickening, or obvious pericholecystic inflammatory changes. PANCREAS: Unremarkable. SPLEEN: Unremarkable. ADRENAL GLANDS: Unremarkable. KIDNEYS AND URETERS: The kidneys are normal in size, shape, and attenuation. No hydronephrosis, hydroureter, or calculi seen. No perinephric stranding. A benign right-sided 1.3 cm Bosniak class I renal cyst is noted which requires no additional imaging or follow up. No solid renal masses are seen. BLADDER: Unremarkable. GASTROINTESTINAL TRACT: The small and large bowel are unremarkable. The appendix is unremarkable. ABDOMINAL WALL: No significant hernia is appreciated. LYMPH NODES: Normal. VASCULAR: Unremarkable. PELVIC VISCERA: The uterus is not seen. An abnormal adnexal mass is not detected. No free intraperitoneal fluid is present. OSSEOUS STRUCTURES: Degenerative changes are present from T12 through S1 with a biconvex scoliosis. CT/CT abdomen pelvis w IV con IMPRESSION: 1. A cause for the patient's lower abdominal pain has not been found. 2. Incidental note made of mild hepatomegaly, degenerative changes in the spine and a benign right renal cyst which requires no additional imaging or follow up. External Record Review External record reviewed: Outpatient record and Prior outpatient labs Critical Care Time Critical Care Time Critical Care Time: Yes Total Critical Care Time: 45 Attestation: I personally attest to this time spent taking care of the patient. Discharge Plan Discharge Clinical Impression: Anxiety, Abdominal pain, Diarrhea Patient Disposition: Home, Self-Care Instructions: Acute Diarrhea (ED), Acute Abdominal Pain (ED), Anxiety (ED) Additional Instructions: Please follow-up with your primary care physician tomorrow. If you have any worsening or new symptoms, please return to the emergency room or call 911 Prescriptions: New loperamide [Diamode] 2 mg tablet 2 mg PO Q4H PRN (Reason: loose stool) Qty: 20 0RF Rx Instructions: administer after each loose stool until symptoms controlled; do not exceed 8 mg per 24 hrs No Action Centrum Silver 1 tab PO DAILY pantoprazole 40 mg Tablet,Delayed Release (Dr/Ec) 40 mg PO DAILY fluticasone propionate [Flonase Allergy Relief] 50 mcg/actuation spray,suspension 2 spray intranasal DAILY Qty: 16 0RF Rx Instructions: administer into each nostril hydroxyzine HCl 10 mg tablet 10 mg PO TID PRN (Reason: anxiety) Qty: 14 0RF bupropion HCl 300 mg tablet extended release 24 hr 300 mg PO QAM gabapentin 300 mg capsule 300 mg PO BID albuterol sulfate 90 mcg/actuation HFA aerosol inhaler 1 inh inhalation QID atorvastatin 10 mg tablet 10 mg PO DAILY loratadine 10 mg tablet 10 mg PO DAILY calcium carbonate-vitamin D3 600 mg(1,500mg) -400 unit tablet 1 tab PO DAILY aspirin 81 mg tablet,delayed release (DR/EC) 81 mg PO DAILY cholecalciferol (vitamin D3) 50 mcg (2,000 unit) tablet 50 mcg PO DAILY cetirizine 10 mg tablet 10 mg PO DAILY levothyroxine 125 mcg tablet 125 mcg PO DAILY Print Language: Omani
--- NOTE | 2023-11-13 12:29 | ECG_ITS ---
Test Reason : DIF BREATHING Blood Pressure : / mmHG Vent. Rate : 078 BPM Atrial Rate : 078 BPM P-R Int : 146 ms QRS Dur : 088 ms QT Int : 382 ms P-R-T Axes : 033 -34 039 degrees QTc Int : 435 ms Normal sinus rhythm Left axis deviation Minimal voltage criteria for LVH, may be normal variant ( [place] product ) Abnormal ECG When compared with ECG of 11-NOV-2023 12:58, No significant change was found Referred By: Isabella eLster Electronically Signed By:NATHEN MELENDEZ MD
[2023-11-13 13:06] LABS: MANUAL DIFF FLAG NO
[2023-11-13 13:10] LABS: Basophils Percent Auto 0.8 % (0-2); Eosinophils Absolute Auto 0.1 X10*3/uL (0.0-0.4); Hematocrit 37.4 % (37.0-47.0); Hemoglobin 12.6 g/dl (12.0-16.0); Imm Gran Abs Auto 0.01 X10*3/uL (0.00-0.03); Imm Gran Pct Auto 0.2 % (0.0-0.4); Lymphocytes Absolute Auto 1.2 X10*3/uL (1.2-4.9); Lymphocytes Percent Auto 24.1 % (20-40); Mean Corpuscular HGB Conc 33.7 g/dl (31.0-35.0); Mean Corpuscular Hemoglobin 28.6 pg (27.0-33.0); Mean Corpuscular Volume 84.8 fL (80.0-98.0); Mean Platelet Volume 11.7 fL (9.4-12.3); Monocytes Absolute Auto 0.3 X10*3/uL (0.1-1.2); Monocytes Percent Auto 5.7 % (2-11); Neutrophils Absolute Auto 3.3 x10*3/uL (2.0-8.3); Neutrophils Percent Auto 68.2 % (45-73); Platelet Count 190 X10*3/uL (160-400); Red Blood Count 4.41 X10*6/uL (4.20-5.50); White Blood Count 4.8 X10*3/uL (4.8-10.8)
[2023-11-13 13:17] LABS: INTERNATIONAL NORM RATIO 1.1 (0.9-1.1); Prothrombin Time 13.1 SEC (11.1-13.3)
[2023-11-13 13:25] LABS: Alanine Aminotransferase 28 U/L (0-31); Albumin Level 4.4 g/dL (3.5-5.0); Alkaline Phosphatase 96 U/L (39-117); Anion Gap 17 (12-20); Aspartate Amino Transferase 34 U/L (5-31); Bilirubin Direct 0.2 mg/dL (0.0-0.5); Bilirubin Total 0.6 mg/dL (0.0-1.0); Blood Urea Nitrogen 13 mg/dL (9-16); Calcium 9.8 mg/dL (8.4-10.2); Carbon Dioxide 21 mmol/L (22-29); Chloride 110 mmol/L (96-108); Creatinine Clr Calc Pharmacy 91.2; Estimated Glomerular Filt Rate > 60; Glucose Random 105 mg/dL (60-115); Potassium 3.5 mmol/L (3.3-5.1); Sodium 144 mmol/L (135-145); Total Protein 7.7 g/dL (6.5-8.0)
[2023-11-13 13:33] LABS: Troponin-I High Sensitivity 2.8 ng/L (<3.5-17.0)
[2023-11-13 13:51] LABS: Influenza A PCR NEGATIVE (Negative); Influenza B PCR NEGATIVE (Negative); Resp Syncy Virus RNA Qual PCR NEGATIVE (Negative); SARS COV2 PCR INHOUSE NEGATIVE (Negative)
[2023-11-13 18:53] LABS: Glucose, Whole Blood 107 mg/dL (60-115)
[2023-11-13 19:11] LABS: Appearance Urine Clear; Color Urine Yellow; Glucose Urine UA Negative (Negative); Leukocyte Esterase Urine Negative (Negative); Nitrite Urine Negative (Negative); PH >= 9.0 (5.0-9.0); Urine Blood Negative (Negative); Urine Ketones Negative (Negative); Urine Protein Negative (Neg-Trace)
[2023-11-13 19:14] VITALS: BP 148/84; PULSE 62; RESP 20; TEMP 36.6; O2SAT 96
[2023-11-13 19:59] LABS: Thyroid Stimulating Hormone 3.19 uIU/mL (0.32-4.0)
--- NOTE | 2023-11-13 20:10 | PC.NURSE ---
ultrasound at bedside with pt at this time.
[2023-11-13] MEDS: hydrOXYzine HCL 50 MG TABLET PO (20:16)
[2023-11-13] MEDS: Lidocaine HCl Viscous 2 % 15 ML SOLUTION 10 ML MUCOUS MEM (21:19)
[2023-11-13] MEDS: Magnesium Hydrox/Alum Hydrox 30 ML ORAL.SUSP PO (21:19)
[2023-11-13] MEDS: LORazepam 1 MG TABLET PO (21:59)
--- NOTE | 2023-11-13 22:03 | PC.NURSE ---
PT REPORTING INCREASED ANXIETY, PT MEDICATED PER JUN, 20G placed in left ac.
[2023-11-13] MEDS: iohexoL 350 MG/ML 100 ML INFUS..BTL 85 ML IV (22:43)
[2023-11-13 22:56] VITALS: BP 131/58; PULSE 63; RESP 20; TEMP 36.9; O2SAT 99
[2023-11-14 00:21] VITALS: BP 143/73; PULSE 65; RESP 20; TEMP 36.3; O2SAT 99
== END 2023-11-14 00:22 | disposition home or self-care (01) ==
PROVIDERS: Physician Assistant Medical; Student in an Organized Health Care Education/Training Program; Emergency Provider Emergency Medicine; PCP Family Medicine
DX: F41.9 Anxiety disorder, unspecified (principal); R10.32 Left lower quadrant pain; R19.7 Diarrhea, unspecified; R45.1 Restlessness and agitation; R53.1 Weakness; R42 Dizziness and giddiness; Z03.818 Encounter for observation for suspected exposure to other biological agents ruled out; J45.909 Unspecified asthma, uncomplicated; Z79.899 Other long term (current) drug therapy
CPT/HCPCS: 0241U; 71046; 74177; 76705; 80048; 80076; 81003; 82947; 83735; 84443; 84484; 85025; 85610; 93005; 99284; 99285; Q9967

== ENCOUNTER → 2023-11-13 12:29 | Outpatient (BNV) | payer OTHER, SELFPAY | PROVIDERS: Emergency Provider Emergency Medicine; PCP Family Medicine; Visit Provider Internal Medicine Cardiovascular Disease | DX: R94.31 Abnormal electrocardiogram [ECG] [EKG] (principal) | CPT/HCPCS: 93010 ==

== ENCOUNTER 2023-11-22 13:25 | Outpatient (REF) | payer OTHER, SELFPAY ==
[2023-11-22 15:56] LABS: MANUAL DIFF FLAG NO
[2023-11-22 16:02] LABS: Basophils Percent Auto 0.7 % (0-2); Eosinophils Percent Auto 0.7 % (0-4); Hematocrit 40.4 % (37.0-47.0); Hemoglobin 13.3 g/dl (12.0-16.0); Imm Gran Abs Auto 0.02 X10*3/uL (0.00-0.03); Imm Gran Pct Auto 0.3 % (0.0-0.4); Lymphocytes Percent Auto 16.4 % (20-40); Mean Corpuscular HGB Conc 32.9 g/dl (31.0-35.0); Mean Corpuscular Hemoglobin 28.7 pg (27.0-33.0); Mean Corpuscular Volume 87.3 fL (80.0-98.0); Mean Platelet Volume 12.1 fL (9.4-12.3); Monocytes Absolute Auto 0.3 X10*3/uL (0.1-1.2); Monocytes Percent Auto 5.3 % (2-11); Neutrophils Absolute Auto 4.5 x10*3/uL (2.0-8.3); Neutrophils Percent Auto 76.6 % (45-73); Platelet Count 206 X10*3/uL (160-400); Red Blood Count 4.63 X10*6/uL (4.20-5.50); Red Cell Distribution Width 13.4 % (11.0-16.0); White Blood Count 5.9 X10*3/uL (4.8-10.8)
[2023-11-22 16:08] LABS: Appearance Urine Clear; Color Urine Yellow; Glucose Urine UA Negative (Negative); Leukocyte Esterase Urine Negative (Negative); Nitrite Urine Negative (Negative); Specific Gravity - Urine <= 1.005 (1.005-1.025); Urine Blood Negative (Negative); Urine Ketones Negative (Negative); Urine Protein Negative (Neg-Trace)
[2023-11-22 16:13] LABS: Bacteria Urine None Seen (None Seen); Hyaline Casts Urine 0-2 /LPF (0-2); RBC Urine 0-2 /HPF (0-2); Squamous Epithelial Cell Urine 0-2 /HPF (0-2); WBC Urine 0-5 /HPF (0-5)
[2023-11-22 16:22] LABS: Alanine Aminotransferase 35 U/L (0-31); Albumin Level 4.6 g/dL (3.5-5.0); Alkaline Phosphatase 93 U/L (39-117); Anion Gap 13 (12-20); Aspartate Amino Transferase 32 U/L (5-31); Bilirubin Direct 0.2 mg/dL (0.0-0.5); Bilirubin Total 0.4 mg/dL (0.0-1.0); Blood Urea Nitrogen 11 mg/dL (9-16); C Reactive Protein < 0.10 mg/dL (< or = 0.50); Calcium 10.6 mg/dL (8.4-10.2); Carbon Dioxide 25 mmol/L (22-29); Chloride 108 mmol/L (96-108); Cholesterol 143 mg/dL (<200); Estimated Glomerular Filt Rate > 60; Glucose Random 133 mg/dL (60-115); HDL Cholesterol 38 mg/dL (>40); LDL Cholesterol Calculated 72 mg/dL (<100); Potassium 4.3 mmol/L (3.3-5.1); Sodium 142 mmol/L (135-145); Total Protein 8.1 g/dL (6.5-8.0); Triglycerides 167 mg/dL (<150)
[2023-11-22 16:32] LABS: Estimated Average Glucose 100 mg/dL; Hemoglobin A1c % 5.1 % (<6.0)
[2023-11-22 16:37] LABS: HIV AB/AG Nonreactive (Nonreactive); HIV Num 1 0.06 S/CO (0.00-0.99)
[2023-11-22 16:40] LABS: Free T4 (Free Thyroxine) 1.49 ng/dL (0.71-1.85); Thyroid Stimulating Hormone 3.17 uIU/mL (0.32-4.0); Vitamin D 25-OH Total 71.4 ng/mL (>30)
[2023-11-22 16:44] LABS: Erythrocyte Sedimentation Rate 5 MM/HR (0-20)
[2023-11-24 19:39] LABS: TS Negative Control Passed; TS Panel A 1; TS Panel B 0; TS Positive Control Passed; TSpotTB Negative (Negative)
== END 2023-11-22 13:26 | disposition home or self-care (01) ==
LOC: HO.HHCL 13:25
PROVIDERS: Visit Provider Family Medicine
DX: F41.9 Anxiety disorder, unspecified (principal); R63.4 Abnormal weight loss; Z13.1 Encounter for screening for diabetes mellitus; Z13.220 Encounter for screening for lipoid disorders
CPT/HCPCS: 36415; 80048; 80061; 80076; 81001; 82306; 83036; 84134; 84439; 84443; 85025; 85027; 85652; 86140; 86481; 87389

== ENCOUNTER 2023-12-23 14:06 | Outpatient (REF) | payer OTHER, SELFPAY ==
[2023-12-23 16:09] LABS: MANUAL DIFF FLAG NO
[2023-12-23 16:17] LABS: Basophils Percent Auto 0.6 % (0-2); Eosinophils Percent Auto 0.8 % (0-4); Hematocrit 39.4 % (37.0-47.0); Imm Gran Abs Auto 0.01 X10*3/uL (0.00-0.03); Imm Gran Pct Auto 0.2 % (0.0-0.4); Lymphocytes Absolute Auto 1.1 X10*3/uL (1.2-4.9); Lymphocytes Percent Auto 21.2 % (20-40); Mean Corpuscular Hemoglobin 29.1 pg (27.0-33.0); Mean Corpuscular Volume 88.3 fL (80.0-98.0); Mean Platelet Volume 11.5 fL (9.4-12.3); Monocytes Absolute Auto 0.3 X10*3/uL (0.1-1.2); Monocytes Percent Auto 6.2 % (2-11); Neutrophils Absolute Auto 3.8 x10*3/uL (2.0-8.3); Platelet Count 196 X10*3/uL (160-400); Red Blood Count 4.46 X10*6/uL (4.20-5.50); Red Cell Distribution Width 13.3 % (11.0-16.0); White Blood Count 5.3 X10*3/uL (4.8-10.8)
[2023-12-23 16:45] LABS: Alanine Aminotransferase 29 U/L (0-31); Albumin Level 4.5 g/dL (3.5-5.0); Alkaline Phosphatase 85 U/L (39-117); Anion Gap 13 (12-20); Aspartate Amino Transferase 28 U/L (5-31); Bilirubin Direct 0.1 mg/dL (0.0-0.5); Bilirubin Total 0.4 mg/dL (0.0-1.0); Blood Urea Nitrogen 13 mg/dL (9-16); Calcium 10.3 mg/dL (8.4-10.2); Carbon Dioxide 26 mmol/L (22-29); Chloride 107 mmol/L (96-108); Estimated Glomerular Filt Rate > 60; Glucose Random 85 mg/dL (60-115); Potassium 3.7 mmol/L (3.3-5.1); Sodium 142 mmol/L (135-145); Total Protein 7.8 g/dL (6.5-8.0)
[2023-12-24 05:47] LABS: Parathyroid Hormone Intact 46.8 pg/mL (8.7-77.1)
[2023-12-26 12:53] LABS: Calcium, Ionized 5.4 mg/dL (4.7-5.5)
== END 2023-12-23 14:07 | disposition home or self-care (01) ==
LOC: HO.HHCL 14:06
PROVIDERS: Visit Provider Family Medicine
DX: E83.52 Hypercalcemia (principal)
CPT/HCPCS: 36415; 80048; 80076; 82330; 83970; 85025

== ENCOUNTER 2024-04-08 11:59 | Outpatient (REF) | payer MEDICARE, MEDICAID, SELFPAY | END 2024-04-08 12:00 | disposition home or self-care (01) | LOC: HO.MAMMO 11:59 | PROVIDERS: PCP Family Medicine; Visit Provider Family Medicine | DX: Z12.31 Encounter for screening mammogram for malignant neoplasm of breast (principal) | CPT/HCPCS: 77063; 77067 ==

== ENCOUNTER → 2024-04-08 12:00 | Outpatient (BNV) | payer MEDICARE, MEDICAID, SELFPAY | PROVIDERS: PCP Family Medicine; Visit Provider Internal Medicine | DX: Z12.31 Encounter for screening mammogram for malignant neoplasm of breast (principal) | CPT/HCPCS: 77063; 77067 ==

== ENCOUNTER 2024-07-03 14:49 | Outpatient (REF) | payer MEDICAID, SELFPAY ==
[2024-07-03 17:26] LABS: Anion Gap 11 (12-20); Blood Urea Nitrogen 14 mg/dL (9-16); Calcium 9.6 mg/dL (8.4-10.2); Carbon Dioxide 29 mmol/L (22-29); Chloride 107 mmol/L (96-108); Estimated Glomerular Filt Rate > 60; Potassium 3.8 mmol/L (3.3-5.1); Sodium 143 mmol/L (135-145)
[2024-07-03 17:36] LABS: Glucose Random 55 mg/dL (60-115)
== END 2024-07-03 14:50 | disposition home or self-care (01) ==
LOC: HO.HHCL 14:49
PROVIDERS: Visit Provider Nurse Practitioner Family
DX: I10 Essential (primary) hypertension (principal)
CPT/HCPCS: 36415; 80048

== ENCOUNTER 2024-07-11 20:35 | Emergency (ER) | payer MEDICARE, MEDICAID, SELFPAY ==
--- NOTE | ~2024-07-11 | XR_ITS ---
CLINICAL HISTORY: cp, palpitations EXAM: One view chest x-ray COMPARISON: CR/NJ/SR - XR CHEST 2V - 11/13/23 13:16 EDT FINDINGS: Normal cardiac, mediastinal, and hilar contours. Normal heart size. No pleural effusion or pneumothorax. Lungs are clear. No acute bone finding. IMPRESSION: 1. No acute cardiopulmonary process demonstrated. This document has been electronically signed by: Vijay Dias MD on 07/12/2024 00:22:10
--- NOTE | 2024-07-11 20:37 | ED.GENADULT ---
HPI - General Adult General Chief complaint: Chest Pain Stated complaint: Throat pain, Slight chest pain. Time Seen by Provider: 07/11/24 22:41 Source: patient, RN notes reviewed and old records reviewed History of Present Illness ED Provider: Brenda Mckeon PA-C HPI narrative: 64-year-old female with a past medical history of hypothyroid, ANCA on CPAP, HLD, asthma, presenting to the ED complaining of chest pain and palpitations since 16:00. Reports chest pain improving at present. Admits to history of anxiety which she takes hydroxyzine & citalopram. Admits symptoms feel similar to prior anxiety. Denies SOB, fever, chills, cough, pedal edema, abdominal pain, nausea/vomiting Related Data Home Medications ?Medication ?Instructions ?Recorded ?Confirmed albuterol sulfate 90 mcg/actuation 1 inh inhalation QID 03/16/20 04/15/23 aerosol inhaler aspirin 81 mg tablet,delayed 81 mg PO DAILY 03/16/20 04/15/23 release atorvastatin 10 mg tablet 10 mg PO DAILY 03/16/20 04/15/23 bupropion HCl 300 mg 24 hr tablet, 300 mg PO QAM 03/16/20 04/15/23 extended release calcium 600 mg (as 1 tab PO DAILY 03/16/20 04/15/23 carbonate)-vitamin D3 10 mcg (400 unit) tablet cholecalciferol (vitamin D3) 50 50 mcg PO DAILY 03/16/20 04/15/23 mcg (2,000 unit) tablet gabapentin 300 mg capsule 300 mg PO BID 03/16/20 04/15/23 loratadine 10 mg tablet 10 mg PO DAILY 03/16/20 04/15/23 Centrum Silver 1 tab PO DAILY 08/18/20 04/15/23 pantoprazole 40 mg tablet,delayed 40 mg PO DAILY 05/21/22 04/15/23 release cetirizine 10 mg tablet 10 mg PO DAILY 02/14/23 04/15/23 levothyroxine 125 mcg tablet 125 mcg PO DAILY 02/14/23 04/15/23 Previous Rx's ?Medication ?Instructions ?Recorded fluticasone propionate 50 2 spray intranasal DAILY #16 grams 05/23/22 mcg/actuation nasal spray,suspension (Flonase Allergy Relief) hydroxyzine HCl 10 mg tablet 10 mg PO TID PRN anxiety #14 tabs 11/11/23 loperamide 2 mg tablet (Diamode) 2 mg PO Q4H PRN loose stool #20 11/14/23 tabs Allergies Allergy/AdvReac Type Severity Reaction Status Date / Time No Known Allergies Allergy Verified 07/11/24 20:40 [No Known Allergies*] Review of Systems Review of Systems: Yes all other systems are reviewed and are negative Constitutional: Constitutional: Reports as per [facility] Past Medical History Attestation statement: The following information was validated with the patient. Source: old records reviewed Medical History Hx of cervical cancer Hypothyroid Leukopenia History of fatty infiltration of liver Macular degeneration ANCA on CPAP High cholesterol Chronic pain Asthma Colon polyp Surgical History History of excision of mass Hx of tubal ligation History of total abdominal hysterectomy and bilateral salpingo-oophorectomy Hx of colonoscopy History of back surgery Family History Family History Father No problems noted. Mother No problems noted. Daughter No problems noted. Son No problems noted. Sister Breast cancer Colon cancer Brother Liver cancer Brother Cancer of kidney Social History Social History Household Members: Family Housing: Apartment Are you a primary home care administrator to a significant other at home: No Do you presently have visiting nurse or other home services: No Alcohol intake: never Patient Tobacco Use Status: Never used Tobacco Smoked in Last 30 Days: No Use of substances other than those prescribed or required for medical reasons: No Advance Directives: No Advance Directives Information Provided: No Do you have a plan to hurt others: No Plan Current occupational status: retired and disabled Physical Exam ED Vital Signs: Vital Signs - 24 hr 07/11/24 20:38 07/11/24 22:09 07/12/24 00:34 Temperature 98.1 F 98 F 98.6 F Pulse Rate 99 84 84 Respiratory Rate 18 20 18 Blood Pressure 154/60 H 143/78 H 147/86 H Pulse Oximetry 96 97 95 Oxygen Delivery Method Room Air Room Air Room Air 07/12/24 00:41 Temperature 98.6 F Pulse Rate 84 Respiratory Rate 18 Blood Pressure 147/86 H Pulse Oximetry 95 Oxygen Delivery Method Room Air BMI result Body Mass Index 27.9 Const General: cooperative, healthy appearing and no acute distress Orientation/consciousness: patient oriented x3 Limitations: no limitations HENMT Head: Yes normal to inspection and Yes atraumatic Ears: hearing grossly normal bilaterally General nose exam: Normal external nose present Face and sinus: Yes normal facial exam Eyes General: appearance normal, both eyes and all related structures EOM: EOMs intact bilaterally Neck Neck: Yes normal visual inspection and Yes no meningeal signs Resp Effort & Inspection: normal respiratory effort and no respiratory distress Auscultation: clear to auscultation bilaterally, no crackles and no wheezes Cardio Rate: regular rate Heart sounds: S1 normal heart sound present and S2 normal heart sound present GI Inspection: Yes normal to inspection Palpation (GI): Soft to palpation, nontender, no guarding and not rigid General: Yes no CVA tenderness Back/Spine/Pelvis Back: no CVA tenderness Skin Rashes: no rashes Wounds: no wounds Neuro General: patient oriented x3, tone normal and no meningeal signs Cranial nerves: Yes CN's II-XII intact bilaterally Gait exam (Neuro): Normal gait present Extrem General: Yes normal to inspection and Yes no pedal edema Course Course Course Narrative: RME performed by Luann Sarkar PA-C. Patient is a 64 year old assigned female at presenting to the emergency department with palpitations. Patient states that she feels generally unwell with palpitations and a sore throat. Detailed physical exam and review of systems are deferred to the chief concierge. EKG, labs, imaging, and swabs ordered. Patient placed back in the waiting room pending room availability and results. -[id number]--no leukocytosis. H/H stable. Troponin negative. Labs otherwise reassuring -viral testing and rapid strep negative -0028--troponin x2 without significant rise, mi unlikely. CXR unremarkable. Patient is safe for discharge home at this time with PCP follow-up Results discussed with patient including worrisome signs and symptoms and strict return precautions, and when to return to the emergency department. They verbalized understanding and feel safe for discharge at this time. Medical Decision Making Medical Decision Making MDM Narrative: 64-year-old female with a past medical history of hypothyroid, ANCA on CPAP, HLD, asthma, presenting to the ED complaining of chest pain and palpitations since 16:00. Reports chest pain improving at present. On exam vital signs stable, NAD, nontoxic appearing, mildly anxious, lungs CTA, no pedal edema. Concern for anxiety reaction vs ACS vs metabolic abnormalities vs thyroid dysfunction. Lower suspicion for PE / DVT, CHF. No evidence of PICK UP MAN/retropharyngeal abscess Plan: EKG, labs, CXR, viral testing, rapid strep, re-evaluate Please refer to course for remaining clinical decision making, interpretation of labs/imaging results, and discussions with consultants and/or family members. Differential Diagnosis Differential Diagnoses: The differential diagnosis associated with the presentation includes As above Admission/Observation Consideration of admission/observation: Escalation of care including admission/observation considered Lab Data MDM Lab Attestation statement: I reviewed the patient's lab results. 07/11/24 20:38 07/11/24 21:00 Labs: Lab Results 07/11/24 07/11/24 07/11/24 Range/Units 20:38 20:59 21:00 WBC 4.9 (4.8-10.8) X10*3/uL RBC 3.92 L (4.20-5.50) X10*6/uL Hgb 11.4 L (12.0-16.0) g/dl Hct 32.6 L (37.0-47.0) % MCV 83.2 (80.0-98.0) fL MCH 29.1 (27.0-33.0) pg MCHC 35.0 (31.0-35.0) g/dl RDW 13.0 (11.0-16.0) % Plt Count 182 (160-400) X10*3/uL MPV 11.0 (9.4-12.3) fL Immature Gran % (Auto) 0.2 (0.0-0.4) % Neut % (Auto) 70.5 (45-73) % Lymph % (Auto) 19.2 L (20-40) % [place] % (Auto) 8.5 (2-11) % Eos % (Auto) 1.0 (0-4) % Baso % (Auto) 0.6 (0-2) % Lymph # (Auto) 1.0 L (1.2-4.9) X10*3/uL [place] # (Auto) 0.4 (0.1-1.2) X10*3/uL Eos # (Auto) 0.1 (0.0-0.4) X10*3/uL Baso # (Auto) 0.0 (0.0-0.2) X10*3/uL Abs Immat Gran (auto) 0.01 (0.00-0.03) X10*3/uL Absolute Neuts (auto) 3.5 (2.0-8.3) x10*3/uL Absolute Nucleated RBC 0.000 (0.0-0.012) X10*3/uL Nucleated RBC % (auto) 0.0 (0.0-0.2) /100WBC PT 13.1 H (10.9-12.4) SEC INR 1.1 (0.9-1.1) Sodium 141 (135-145) mmol/L Potassium 3.7 (3.3-5.1) mmol/L Chloride 107 (96-108) mmol/L Carbon Dioxide 25 (22-29) mmol/L Anion Gap 13 (12-20) BUN 13 (9-16) mg/dL Creatinine 0.80 (0.5-1.4) mg/dL Estim Creat Clear Calc 87.1 Estimated GFR > 60 Random Glucose 121 H (60-115) mg/dL Calcium 9.0 D (8.4-10.2) mg/dL Magnesium 2.0 (1.6-2.6) mg/dL Total Bilirubin 0.2 (0.0-1.0) mg/dL AST 46 H (5-31) U/L ALT 30 (0-31) U/L Alkaline Phosphatase 109 (39-117) U/L Troponin I High Sens 3.0 (<3.5-17.0) ng/L Total Protein 7.4 (6.5-8.0) g/dL Albumin 3.8 (3.5-5.0) g/dL TSH 1.50 (0.32-4.0) uIU/mL Influenza Type A (PCR) NEGATIVE (Negative) Influenza Type B (PCR) NEGATIVE (Negative) RSV RNA Qual (PCR) NEGATIVE (Negative) SARS-CoV-2 RNA (RT-PCR) NEGATIVE (Negative) S. pyogenes GrpA JUANJO Negative (Negative) 07/11/24 Range/Units 23:03 WBC (4.8-10.8) X10*3/uL RBC (4.20-5.50) X10*6/uL Hgb (12.0-16.0) g/dl Hct (37.0-47.0) % MCV (80.0-98.0) fL MCH (27.0-33.0) pg MCHC (31.0-35.0) g/dl RDW (11.0-16.0) % Plt Count (160-400) X10*3/uL MPV (9.4-12.3) fL Immature Gran % (Auto) (0.0-0.4) % Neut % (Auto) (45-73) % Lymph % (Auto) (20-40) % [place] % (Auto) (2-11) % Eos % (Auto) (0-4) % Baso % (Auto) (0-2) % Lymph # (Auto) (1.2-4.9) X10*3/uL [place] # (Auto) (0.1-1.2) X10*3/uL Eos # (Auto) (0.0-0.4) X10*3/uL Baso # (Auto) (0.0-0.2) X10*3/uL Abs Immat Gran (auto) (0.00-0.03) X10*3/uL Absolute Neuts (auto) (2.0-8.3) x10*3/uL Absolute Nucleated RBC (0.0-0.012) X10*3/uL Nucleated RBC % (auto) (0.0-0.2) /100WBC PT (10.9-12.4) SEC INR (0.9-1.1) Sodium (135-145) mmol/L Potassium (3.3-5.1) mmol/L Chloride (96-108) mmol/L Carbon Dioxide (22-29) mmol/L Anion Gap (12-20) BUN (9-16) mg/dL Creatinine (0.5-1.4) mg/dL Estim Creat Clear Calc Estimated GFR Random Glucose (60-115) mg/dL Calcium (8.4-10.2) mg/dL Magnesium (1.6-2.6) mg/dL Total Bilirubin (0.0-1.0) mg/dL AST (5-31) U/L ALT (0-31) U/L Alkaline Phosphatase (39-117) U/L Troponin I High Sens 4.1 (<3.5-17.0) ng/L Total Protein (6.5-8.0) g/dL Albumin (3.5-5.0) g/dL TSH (0.32-4.0) uIU/mL Influenza Type A (PCR) (Negative) Influenza Type B (PCR) (Negative) RSV RNA Qual (PCR) (Negative) SARS-CoV-2 RNA (RT-PCR) (Negative) S. pyogenes GrpA JUANJO (Negative) Independent Interpretation I performed an independent interpretation of an: EKG (My interpretation EKG normal sinus rhythm rate of 86. HI interval 162. No significant change when compared to prior. No STEMI ) Radiology Impression Discussion of test interpretation with radiology: I have reviewed the radiologist's reading. External Record Review External record reviewed: Inpatient record, Office record, Outpatient record, Prior outpatient labs, Prior outpatient radiology, Primary care record and Outside ED record Tests considered The following testing was considered but not selected: As above Prescription Management I considered prescription management with: Other Chronic Conditions Patient?s care impacted by: Other (asthma, ANCA on CPAP) Social Determinants Patient?s care significantly limited by Social Determinants of Health including: Other Social Determinant of Health Discharge Plan Discharge Clinical Impression: Atypical chest pain Patient Disposition: Home, Self-Care Instructions: Noncardiac Chest Pain (ED) Additional Instructions: Your blood work, chest x-ray, and viral testing is reassuring Please have close follow up with her primary care doctor Continue home prescribed medications Follow up with Cardiology If her symptoms persist or worsen, become more constant, you have shortness of breath or fever return to the ED Prescriptions: No Action Centrum Silver 1 tab PO DAILY pantoprazole 40 mg Tablet,Delayed Release (Dr/Ec) 40 mg PO DAILY fluticasone propionate [Flonase Allergy Relief] 50 mcg/actuation spray,suspension 2 spray intranasal DAILY Qty: 16 0RF Rx Instructions: administer into each nostril loperamide [Diamode] 2 mg tablet 2 mg PO Q4H PRN (Reason: loose stool) Qty: 20 0RF Rx Instructions: administer after each loose stool until symptoms controlled; do not exceed 8 mg per 24 hrs hydroxyzine HCl 10 mg tablet 10 mg PO TID PRN (Reason: anxiety) Qty: 14 0RF bupropion HCl 300 mg tablet extended release 24 hr 300 mg PO QAM gabapentin 300 mg capsule 300 mg PO BID albuterol sulfate 90 mcg/actuation HFA aerosol inhaler 1 inh inhalation QID atorvastatin 10 mg tablet 10 mg PO DAILY loratadine 10 mg tablet 10 mg PO DAILY calcium carbonate-vitamin D3 600 mg(1,500mg) -400 unit tablet 1 tab PO DAILY aspirin 81 mg tablet,delayed release (DR/EC) 81 mg PO DAILY cholecalciferol (vitamin D3) 50 mcg (2,000 unit) tablet 50 mcg PO DAILY cetirizine 10 mg tablet 10 mg PO DAILY levothyroxine 125 mcg tablet 125 mcg PO DAILY Referrals: [facility] [Provider Group] Cata Hill DO [Primary Care Provider] - 3 days Interventions: ED Discharge Assessment Last Done: 07/12/24 00:41 Discharge Date/Time: 07/12/24 00:42 Print Language: Azeri
[2024-07-11 20:38] VITALS: BP 154/60; PULSE 99; RESP 18; TEMP 36.7; O2SAT 96; BMI 27.9
--- NOTE | 2024-07-11 20:39 | ECG_ITS ---
Test Reason : palpatations Blood Pressure : */* mmHG Vent. Rate : 86 BPM Atrial Rate : 86 BPM P-R Int : 162 ms QRS Dur : 96 ms QT Int : 366 ms P-R-T Axes : 46 -28 35 degrees QTcB Int : 437 ms Normal sinus rhythm Minimal voltage criteria for LVH, may be normal variant ( [place] product ) Borderline ECG When compared with ECG of 13-Nov-2023 12:47, No significant change was found Referred By: Luann Sarkar Electronically Signed By: EV WILSON
[2024-07-11 21:10] LABS: MANUAL DIFF FLAG NO
[2024-07-11 21:11] LABS: Basophils Percent Auto 0.6 % (0-2); Eosinophils Absolute Auto 0.1 X10*3/uL (0.0-0.4); Hematocrit 32.6 % (37.0-47.0); Hemoglobin 11.4 g/dl (12.0-16.0); Imm Gran Abs Auto 0.01 X10*3/uL (0.00-0.03); Imm Gran Pct Auto 0.2 % (0.0-0.4); Lymphocytes Percent Auto 19.2 % (20-40); Mean Corpuscular Hemoglobin 29.1 pg (27.0-33.0); Mean Corpuscular Volume 83.2 fL (80.0-98.0); Monocytes Absolute Auto 0.4 X10*3/uL (0.1-1.2); Monocytes Percent Auto 8.5 % (2-11); Neutrophils Absolute Auto 3.5 x10*3/uL (2.0-8.3); Neutrophils Percent Auto 70.5 % (45-73); Platelet Count 182 X10*3/uL (160-400); Red Blood Count 3.92 X10*6/uL (4.20-5.50); White Blood Count 4.9 X10*3/uL (4.8-10.8)
[2024-07-11 21:17] LABS: INTERNATIONAL NORM RATIO 1.1 (0.9-1.1); Prothrombin Time 13.1 SEC (10.9-12.4)
[2024-07-11 21:24] LABS: Alanine Aminotransferase 30 U/L (0-31); Albumin Level 3.8 g/dL (3.5-5.0); Alkaline Phosphatase 109 U/L (39-117); Anion Gap 13 (12-20); Aspartate Amino Transferase 46 U/L (5-31); Bilirubin Total 0.2 mg/dL (0.0-1.0); Blood Urea Nitrogen 13 mg/dL (9-16); Carbon Dioxide 25 mmol/L (22-29); Chloride 107 mmol/L (96-108); Creatinine Clr Calc Pharmacy 87.1; Estimated Glomerular Filt Rate > 60; Glucose Random 121 mg/dL (60-115); Potassium 3.7 mmol/L (3.3-5.1); Sodium 141 mmol/L (135-145); Total Protein 7.4 g/dL (6.5-8.0)
[2024-07-11 21:29] LABS: IDNOW Serial# 58CA691E; Strep A Nucleic Acid Negative (Negative)
[2024-07-11 21:50] LABS: Influenza A PCR NEGATIVE (Negative); Influenza B PCR NEGATIVE (Negative); Resp Syncy Virus RNA Qual PCR NEGATIVE (Negative); SARS COV2 PCR INHOUSE NEGATIVE (Negative)
[2024-07-11 22:09] VITALS: BP 143/78; PULSE 84; RESP 20; TEMP 36.6; O2SAT 97
[2024-07-11 23:28] LABS: Troponin-I High Sensitivity 4.1 ng/L (<3.5-17.0)
[2024-07-12 00:34] VITALS: BP 147/86; PULSE 84; RESP 18; TEMP 37; O2SAT 95
[2024-07-12 00:41] VITALS: BP 147/86; PULSE 84; RESP 18; TEMP 37; O2SAT 95
== END 2024-07-12 00:42 | disposition home or self-care (01) ==
PROVIDERS: Physician Assistant; Physician Assistant Medical; Emergency Provider Emergency Medicine; PCP Family Medicine
DX: R07.89 Other chest pain (principal); R00.2 Palpitations; J45.909 Unspecified asthma, uncomplicated; E03.9 Hypothyroidism, unspecified; Z79.899 Other long term (current) drug therapy; Z79.82 Long term (current) use of aspirin; Z79.02 Long term (current) use of antithrombotics/antiplatelets; Z03.818 Encounter for observation for suspected exposure to other biological agents ruled out
CPT/HCPCS: 0241U; 36415; 71045; 80053; 83735; 84443; 84484; 85025; 85610; 87651; 93005; 99283; 99285

== ENCOUNTER → 2024-07-11 20:39 | Outpatient (BNV) | payer MEDICARE, MEDICAID, SELFPAY | PROVIDERS: Emergency Provider Emergency Medicine; PCP Family Medicine; Visit Provider Internal Medicine | DX: R00.2 Palpitations (principal); R94.31 Abnormal electrocardiogram [ECG] [EKG] | CPT/HCPCS: 93010 ==

== ENCOUNTER → 2024-07-11 22:56 | Outpatient (BNV) | payer MEDICARE, MEDICAID, SELFPAY | PROVIDERS: Emergency Provider Emergency Medicine; PCP Family Medicine; Visit Provider Radiology Diagnostic Radiology | DX: R07.9 Chest pain, unspecified (principal); R00.2 Palpitations | CPT/HCPCS: 71045 ==

== ENCOUNTER → 2025-04-14 11:45 | Outpatient (BNV) | payer OTHER, SELFPAY | PROVIDERS: PCP Family Medicine; Visit Provider Internal Medicine | DX: Z12.31 Encounter for screening mammogram for malignant neoplasm of breast (principal) | CPT/HCPCS: 77063; 77067 ==

== ENCOUNTER 2025-04-14 12:03 | Outpatient (REF) | payer OTHER, SELFPAY ==
--- NOTE | ~2025-04-14 | MM_ITS ---
EXAMINATION: MM SCREENING DIGITAL BREAST TOMOSYNTHESIS, BILATERAL CLINICAL INFORMATION: Screening. Asymptomatic. COMPARISON: Mammography: Comparison is made with available priors TECHNIQUE: Digital breast mammography with tomosynthesis is performed in both the craniocaudal and mediolateral oblique views along with computer-aided detection (CAD). FINDINGS: The breasts are heterogeneously dense, which may obscure small masses. Bilateral circumscribed oval masses which wax and wane consistent with benign fibrocystic changes. Right: Asymmetry superior breast middle depth on MLO view. No suspicious calcifications or other abnormal findings. Left: There are no significant masses, abnormal calcifications, or other abnormalities. MM/MM tomosynthesis screening BI IMPRESSION: Additional imaging is recommended ASSESSMENT: BI-RADS Category 0: Incomplete - Need additional Imaging Evaluation RECOMMENDATION: 1. Additional views of the right breast. 2. Targeted ultrasound if warranted after review of the additional views. 3. Radiology department staff will contact the patient for additional imaging. Additional Imaging required Electronically signed by: Janneth Pringle DO 04/14/2025 02:15 PM BRIANA
== END 2025-04-14 12:04 | disposition home or self-care (01) ==
LOC: HO.MAMMO 12:03
PROVIDERS: PCP Family Medicine; Visit Provider Family Medicine
DX: Z12.31 Encounter for screening mammogram for malignant neoplasm of breast (principal)
CPT/HCPCS: 77063; 77067; 87626

== ENCOUNTER 2025-04-15 09:03 | Outpatient (REF) | payer OTHER, SELFPAY ==
--- OUTSIDE RECORDS SUMMARY | 2025-04-20 12:22 | XMS_ITS | Encounter Summary ---
Author Organization [employer] Address [address] [place] [address] [address] [place] [address] Care Team Providers Care Morning News Producer Name Role Phone Cata Hill DO Primary Care Provider [phone] Encounter Details Date Type Department Care Team (Late st Contact Info) Description 05/15/2022 Orders Only [facility] [address] [place] [address] [phone] Ca Orozco LPN Social History Tobacco Use Types Packs/Day Years Used Date Smoking Tobacco: Never Assessed Comments Unknown Sex and Gender Information Value Date Recorded Sex Assigned at Female 02/26/2022 10:15 AM EDT Legal Sex Female 10:15 AM EDT Gender Identity Female 02/26/2022 10:15 AM EDT Sexual Orientation Lesbian or Dinero 02/26/2022 10 :15 AM EDT COVID-19 Exposure Response Date Recorded In the last 10 days, have yo u been in contact with someone who was confirmed or suspected to have Coronavirus/COVID-19? No / Unsure 05/09/2022 1:57 PM EST documented as of this encounter Plan of Treatment Upcoming Encounters Date Type Department Care Team (Late st Contact Info) Description 05/25/2025 10:00 AM EST Office Visit [facility]INE [address] [place] [address] [phone] Cata Hill DO [address] [place], [place] [phone] documented as of this encounter Procedures Procedure Name Priority Date/Time Associated Diagnosis Comments STREP A NUCLEIC ACID Routine 05/23/2022 3:15 PM EST SARS COV2/INFLUENZA A/B AND RSV RNA QL NAAT Routine 05/23/2022 3:15 PM EST documented in this encounter Results * SARS-CoV-2 RNA, Influenza A/B, and RSV RNA, Ql NAAT (05/23/2022 3:15 PM EST) Influenza A PCR NEGATIVE Negative [facility] Influenza B PCR NEGATIVE Negative [facility] Resp Syncy Virus RNA Qual PCR NEGATIVE Negative [facility] SARS COV2 PCR NEGATIVE Negative [facility] SARS/Flu/RSV Note See Note [facility] Comment:All test results mus t be correlated with clinical findings.Negative results do not preclude SARS-CoV2, influenza Avirus, influenza B virus and/or RSV infectionand should not be used as the sole basis for treatment orother patient management decisions. Negative results must becombined with clinical observations, patient history, andepidemiological information.This test has not been evaluated for monitoring treatment ofinfection.This test has been authorized by the FDA under an EmergencyUse Authorization (EUA) for use by authorized laboratories.Testing performed on the [employer] GeneXpert utilizingreal-time RT-PCR.All SARS CoV2 and positive influenza A/B results arereported to [facility]. 05/23/2022 3:15 PM EST 05/23/2022 3:18 PM EST us [facility] Exter nal Provider LAB MICROBIOLOGY - GENERAL ORDERABLES Final Result [facility] [address] [place] [address] [phone] * (ABNORMAL) Strep A Nucleic Acid (05/23/2022 3:15 PM EST) IDNOW SERIAL# [id number] [facility] Strep A Nucleic Acid Positive(A ) Negative [facility] Comment:All test results mus t be correlated with clinical findings.This test has not been evaluated for monitoring treatment ofinfection.Additional follow-up testing using the culture method isrequired if the result is negative and clinical symptomspersist, or in the event of an acute rheumatic feveroutbreak. 05/23/2022 3:15 PM EST 05/23/2022 3:18 PM EST [facility] Exter nal Provider LAB MICROBIOLOGY - GENERAL ORDERABLES Final Result Performing Organization Address City/State/[facility] Co de Phone Number [facility] [address] [place] [phone] documented in this encounter Visit Diagnoses Not on filedocumented in this encounter Care Teams Morning News Producer Relationship Specialty Start Date End Date Cata Hill DO [address] [place] [address] PCP - General Family Medicine 11/13/13 documented as of this encounter
--- OUTSIDE RECORDS SUMMARY | 2025-04-20 12:22 | XMS_ITS | Encounter Summary ---
Author Organization [employer] Address [address] [place] [address] [address] [place] [address] Care Team Providers Care Gelatin Powder Mixer Name Role Phone Cata Hill DO Primary Care Provider Encounter Details Date Type Department Care Team (Latest Contact Info) Description 12/01/2021 Abstract [facility] Dental, Provider, DDS Social History Tobacco Use Types Packs/Day Years Used Date Smoking Tobacco: Never Assessed Comments Unknown Sex and Gender Information Value Date Recorded Sex Assigned at Female 02/26/2022 10:15 AM EDT Legal Sex Female 10:15 AM EDT Gender Identity Female 02/26/2022 10:15 AM EDT Sexual Orientation Lesbian or Dinero 02/26/2022 10 :15 AM EDT documented as of this encounter Plan of Treatment Upcoming Encounters Date Type Department Care Team (Late st Contact Info) Description 05/25/2025 10:00 AM EST Office Visit [facility] [address] [place] [address] Cata Hill DO [address] [place] [address] documented as of this encounter Visit Diagnoses Not on filedocumented in this encounter Care Teams Gelatin Powder Mixer Relationship Specialty Start Date End Date Cata Hill DO [address] [place] [address] PCP - General Family Medicine 11/13/13 documented as of this encounter
--- OUTSIDE RECORDS SUMMARY | 2025-04-20 12:22 | XMS_ITS | Encounter Summary ---
Author Organization [employer] Address [address] [facility] [address] [place] [address] Care Team Providers Care Return To Service Inspector Name Role Phone Cata Hill DO Primary Care Provider [phone] Reason for Visit * Reason Comments Med Change Request Encounter Details Date Type Department Care Team ([facility] st Contact Info) Description 08/28/2024 Refill [facility] [address] [place], [place] [phone] Cata Hill DO [address] [place], [place] [phone] Social History Tobacco Use Types Packs/Day Years Used Date Smoking Tobacco: Former Cigarettes Passive Smoke Exposure: Past Smokeless Tobacco: Never Comments:31 years ago 01/05/20 Alcohol Use Standard Drinks/Week Comments Not Currently 0 (1 standard drink = 0.6 oz pur e alcohol) Depression Answer Date Recorded Patient Health Questionnaire-9 Score 7 06/21/2023 Patient Health Questionnaire-9 Score 7 06/21/2023 Last PHQ-9: Questionnaire Data Not on file 0 06/21/2023 Housing Stability Answer Date Recorded What is your housing situation today? I have levi zapata 02/15/[address] you li ve. Do you have problems with any of the following? None of the above 02/15/2023 Food Insecurity Answer Date Recorded Within the past 12 months, y ou worried that your food would run out before you got money to buy more: Never True 02/15/2023 Within the past 12 months,th e food you bought just didn't last and you didn't have enough money to get more: Never True Transportation Answer Date Recorded In the past 12 months, has l ack of transportation kept you from medical appts, meetings, work or from getting things needed for daily living? No 02/15/2023 Utilities Answer Date Recorded In the past 12 months, has t he electric, gas, oil or water company threatened to shut off services in your home? No 02/15/2023 Depression Answer Date Recorded Patient Health Questionnaire-2 Score 4 06/21/2023 Comments Unknown Sex and Gender Information Value [...] Description 05/25/2025 10:00 AM EST Office Visit [facility] [address] [place] [address] Cata Hill DO [address] [place] [address] documented as of this encounter Visit Diagnoses Not on filedocumented in this encounter Additional Health Concerns Assessment Noted Time PHQ-9 Depression Total Score: 7 06/21/19 24 11:35 AM EST documented as of this encounter Care Teams Return To Service Inspector Relationship Specialty Start Date End Date Cata Hill DO [address] [place] [address] PCP - General Family Medicine 11/13/13 documented as of this encounter
--- OUTSIDE RECORDS SUMMARY | 2025-04-20 12:22 | XMS_ITS | Encounter Summary ---
Author Organization [employer] Address [address] [facility] 7t [place] [address] Care Team Providers Care Manufacturing Plant Technician Name Role Phone Cata Hill DO Primary Care Provider [phone] Reason for Visit * Reason Onset Date Comments Nurse Triage 06/10/2024 Encounter Details Date Type Department Care Team ([facility] st Contact Info) Description 06/10/2024 Telephone [facility] MEDICINE [address] [place], [place] [phone] Cata Hill DO [address] [place] [address] Nurse Triage Social History Tobacco Use Types Packs/Day Years [...] AM EDT documented as of this encounter Miscellaneous Notes * Telephone Encounter - Madiha Partida RN - 06/10/2024 1:17 PM EST Triage call with [employer] . Pt reports just took BP today 20 minutes before call and it was 151/87. Pt is asked to take BP at this time. Pt reports BP is 155/86. Pt was talking while taking BP. Pt is not taking medication for hypertension at this time. Pt only symptom is a headache which Pt has had for 3 days or so. Pt reports drinking adequate liquids , 2 bottles of water and 3 bottles of soda daily. Pt is advised to monitor BP every morning when wakes up and before bed and write it down on piece of paper. Pt is advised to bring paper to ASK apt with PCP 06/23/24 @ 1200pm. Pt is speaking with another person at home during this triage. Pt is advised if symptom of headache continues or worsens and any other symptoms occur such as difficulty talking, walking, chest pain , SOB seek ED eval. Pt acknowledges advice. Protocol Used: Blood Pressure - High (Adult) Protocol-Based Disposition: See in Office or Video Visit within 2 Weeks Positive Triage Question: * Systolic BP >= 130 OR Diastolic >= 80, and is not taking BP medications * All higher-acuity triage questions were negative Care Advice Discussed: * High Blood Pressure * Reasons To Call Back - Headache, blurred vision, difficulty talking, or difficulty walking occurs - Chest pain or difficulty breathing occurs - You want to go into the office for a blood pressure check - You become worse * Telephone Encounter - Kilo Ramirez - 06/10/2024 12:52 PM EST Symptom: High Blood Pressure - Caller Reports Outcome: Transfer to a nurse or provider NOW! Reason: Trouble breathing The caller accepted this outcome. documented in this encounter Plan of Treatment Upcoming Encounters Date Type Department Care Team (Late st Contact Info) Description 05/25/2025 10:00 AM EST Office Visit [facility] MEDICINE [address] [place] [address] Cata Hill DO [address] [place] [address] documented as of this encounter Visit Diagnoses Not on filedocumented in this encounter Additional Health Concerns Assessment Noted Time PHQ-9 Depression Total Score: 7 06/21/19 24 11:35 AM EST documented as of this encounter Care Teams Manufacturing Plant Technician Relationship Specialty Start Date End Date Cata Hill DO [address] [place] [address] PCP - General Family Medicine 11/13/13 documented as of this encounter
--- OUTSIDE RECORDS SUMMARY | 2025-04-20 12:22 | XMS_ITS | Encounter Summary ---
Author Organization [employer] Address 75 [facility] 7t [place] [address] Care Team Providers Care Technical Communication Teacher Name Role Phone Cata Hill DO Primary Care Provider + [phone] Reason for Visit * Reason Comments Med Change Request Encounter Details Date Type Department Care Team ([facility] st Contact Info) Description 04/24/2024 Refill [facility] MEDICINE [address] [place], [place] [phone] Cata Hill DO [address] [place], [place] [phone] Social History Tobacco Use Types Packs/Day Years [...] Description 05/25/2025 10:00 AM EST Office Visit [facility] MEDICINE [address] [place] [address] Cata Hill DO [address] [place] [address] documented as of this encounter Visit Diagnoses Not on filedocumented in this encounter Additional Health Concerns Assessment Noted Time PHQ-9 Depression Total Score: 7 06/21/19 24 11:35 AM EST documented as of this encounter Care Teams Technical Communication Teacher Relationship Specialty Start Date End Date Cata Hill DO [address] [place] [address] PCP - General Family Medicine 11/13/13 documented as of this encounter
--- OUTSIDE RECORDS SUMMARY | 2025-04-20 12:22 | XMS_ITS | Encounter Summary ---
Author Organization [employer] Address [address] [facility] 7t [place] [address] Care Team Providers Care Collection Coordinator Name Role Phone Cata Hill DO Primary Care Provider [phone] Reason for Visit * Reason Onset Date Comments Med Refill 05/06/2023 Encounter Details Date Type Department Care Team ([facility] st Contact Info) Description 05/06/2023 Telephone [facility] MEDICINE [address] [place], [place] [phone] Cata Hill DO [address] [place], [place] [phone] Med Refill Social History Tobacco Use Types Packs/Day Years Used Date Smoking Tobacco: Former Cigarettes Passive Smoke Exposure: Current Smokeless Tobacco: Never Comments:31 years ago 01/05/20 Alcohol Use Standard Drinks/Week Comments Not Currently 0 (1 standard drink = 0.6 oz pur e alcohol) Depression Answer Date Recorded Patient Health Questionnaire-9 Score 0 07/19/2022 Housing Stability Answer Date Recorded What is [...] Answer Date Recorded Patient Health Questionnaire-2 Score 0 07/19/2022 Comments Unknown Sex and Gender Information Value Date Recorded Sex Assigned at Female 02/26/2022 10:15 AM EDT Legal Sex Female 10:15 AM EDT Gender Identity Female 02/26/2022 10:15 AM EDT Sexual Orientation Lesbian or Dinero 02/26/2022 10 :15 AM EDT documented as of this encounter Miscellaneous Notes * Telephone Encounter - Cata Gutierrez LPN - 05/06/2023 9:47 AM EST Medication was sent to [facility] #[id number] on 02/15/23 #180 with 1 refill. * Telephone Encounter - Sara Bills - 05/06/2023 9:32 AM EST TC from pt requesting medication refill. Medications needing refill : Senna-Time 8.6 MG tablet To be sent to: [facility]/pharmacy #[address] documented in this encounter Plan of Treatment Upcoming Encounters Date Type Department Care Team (Late st Contact Info) Description 05/25/2025 10:00 AM EST Office Visit [facility] MEDICINE [address] [place] [address] Cata Hill DO [address] [place] [address] documented as of this encounter Visit Diagnoses Not on filedocumented in this encounter Additional Health Concerns Assessment Noted Time PHQ-9 Depression Total Score: 0 07/20/19 11:06 AM EDT documented as of this encounter Care Teams Collection Coordinator Relationship Specialty Start Date End Date Cata Hill DO [address] [place] [address] PCP - General Family Medicine 11/13/13 documented as of this encounter
--- OUTSIDE RECORDS SUMMARY | 2025-04-20 12:22 | XMS_ITS | Encounter Summary ---
Author Organization [employer] Address [address] [facility] 7t [place] [address] Care Team Providers Care Service Coordinator Elderly Facility Name Role Phone Cata Hill DO Primary Care Provider [phone] Reason for Visit * Reason Comments Med Refill Encounter Details Date Type Department Care Team ([facility] st Contact Info) Description 04/30/2024 Refill [facility] MEDICINE [address] [place], [place] [phone] Cata Hill DO 230 [place], [place] [phone] History of tobacco use Social History Tobacco Use Types Packs/Day Years [...] Description 05/25/2025 10:00 AM EST Office Visit [facility] MEDICINE [address] [place] [address] Cata Hill DO [address] [place] [address] documented as of this encounter Visit Diagnoses Diagnosis History of tobacco use Personal history of tobacco use, presenting hazards to health documented in this encounter Additional Health Concerns Assessment Noted Time PHQ-9 Depression Total Score: 7 06/21/19 24 11:35 AM EST documented as of this encounter Care Teams Service Coordinator Elderly Facility Relationship Specialty Start Date End Date Cata Hill DO [address] [place] [address] PCP - General Family Medicine 11/13/13 documented as of this encounter
--- OUTSIDE RECORDS SUMMARY | 2025-04-20 12:22 | XMS_ITS | Encounter Summary ---
Author Organization [employer] Address [address] [facility] 7t [place] [address] Care Team Providers Care Filter Tank Tender Helper Head Name Role Phone Cata Hill DO Primary Care Provider [phone] Reason for Visit * Reason Comments Med Change Request Encounter Details Date Type Department Care Team ([facility] st Contact Info) Description 12/11/2024 Refill [facility] MEDICINE [address] [place], [place] [phone] Cata Hill DO [address] [place], [place] [phone] Social History Tobacco Use Types Packs/Day Years [...] Description 05/25/2025 10:00 AM EST Office Visit [facility] MEDICINE [address] [place] [address] Cata Hill DO [address] [place] [address] documented as of this encounter Visit Diagnoses Not on filedocumented in this encounter Additional Health Concerns Assessment Noted Time PHQ-9 Depression Total Score: 7 06/21/19 24 11:35 AM EST documented as of this encounter Care Teams Filter Tank Tender Helper Head Relationship Specialty Start Date End Date Cata Hill DO [address] [place] [address] PCP - General Family Medicine 11/13/13 documented as of this encounter
--- OUTSIDE RECORDS SUMMARY | 2025-04-20 12:22 | XMS_ITS | Encounter Summary ---
Author Organization [employer] Address [address] [facility] 7t [place] [address] Care Team Providers Care Sheetmetal Worker Name Role Phone Cata Hill DO Primary Care Provider + [phone] Reason for Visit * Reason Comments Med Refill Encounter Details Date Type Department Care Team ([facility] st Contact Info) Description 04/01/2023 Refill [facility] MEDICINE [address] [place], [place] [phone] Cata Hill DO [address] [place], [place] [phone] Seasonal allergic rhinitis, unspecified trigger Social History Tobacco Use Types Packs/Day Years [...] Description 05/25/2025 10:00 AM EST Office Visit [facility] MEDICINE [address] [place] [address] Cata Hill DO [address] [place] [address] documented as of this encounter Visit Diagnoses Diagnosis Seasonal allergic rhinitis, unspecified trigger documented in this encounter Additional Health Concerns Assessment Noted Time PHQ-9 Depression Total Score: 0 07/20/19 23 11:06 AM EDT documented as of this encounter Care Teams Sheetmetal Worker Relationship Specialty Start Date End Date Cata Hill DO [address] [place] [address] PCP - General Family Medicine 11/13/13 documented as of this encounter
--- OUTSIDE RECORDS SUMMARY | 2025-04-20 12:22 | XMS_ITS | Encounter Summary ---
Author Organization [employer] Address [address] [facility] 7t [place] [address] Care Team Providers Care Community Engagement Specialist Name Role Phone Cata Hill DO Primary Care Provider Reason for Visit * Reason Onset Date Comments Nurse Triage 11/09/2024 Encounter Details Date Type Department Care Team ([facility] st Contact Info) Description 11/09/2024 Telephone [facility] MEDICINE [address] [place], [place] [phone] Cata Hill DO [address] [place] [address] Nurse Triage Social History Tobacco Use Types [...] Miscellaneous Notes * Telephone Encounter - Madiha Pratida RN - 11/09/2024 12:18 PM EDT Triage call with [facility] [place] [id number] [place] [id number], [place]. Pt reports a skin lump located in right lower quadrant of abdomen. Pt reports it is becoming morepainful with sitting, bowel movement and sleeping. Pt is unable to describe the size of this lump .Pt is advised to come to [facility] today open till 8pm to see provider. Pt agrees with disposition but, is unable to get to [facility] today but can come in the morning. Hours given opens 830am to 800pm. Insurance is verified as active. Protocol Used: Hernia (Adult) Protocol-Based Disposition: See in Office or Video Visit Today or Tomorrow Positive Triage Question: * Patient wants to be seen * All higher-acuity triage questions were negative Care Advice Discussed: * Reassurance and Education - Hernia * Avoid Straining * General Constipation Instructions * Reasons To Call Back - You can't reduce the hernia - Pain persists after you reduce the hernia - You become worse * Telephone Encounter - Mima Jordy - 11/09/2024 10:22 AM EDT Symptom: Skin Lump Outcome: Schedule an appointment to be seen within 3 days Reason: Caller denied all higher acuity questions The caller accepted this outcome. Contact pt at [phone] (serbian) documented in this encounter Plan of Treatment Upcoming Encounters Date Type Department Care Team (Late st Contact Info) Description 05/25/2025 10:00 AM EST Office Visit [facility] MEDICINE [address] [place] [address] Cata Hill DO [address] [place] [address] documented as of this encounter Visit Diagnoses Not on filedocumented in this encounter Additional Health Concerns Assessment Noted Time PHQ-9 Depression Total Score: 7 06/21/19 24 11:35 AM EST documented as of this encounter Care Teams Community Engagement Specialist Relationship Specialty Start Date End Date Cata Hill DO [address] [place] [address] PCP - General Family Medicine 11/13/13 documented as of this encounter
--- OUTSIDE RECORDS SUMMARY | 2025-04-20 12:22 | XMS_ITS | Encounter Summary ---
Author Organization [employer] Address [address] [facility] 7t [place] [address] Care Team Providers Care Bed Laborer Name Role Phone Cata Hill DO Primary Care Provider + [phone] Reason for Visit * Reason Comments Med Change Request Encounter Details Date Type Department Care Team ([facility] st Contact Info) Description 10/16/2024 Refill [facility] MEDICINE [address] [place], [place] [phone] Cata Hill DO [address] [place], [place] [phone] Social History Tobacco Use Types Packs/Day Years [...] Description 05/25/2025 10:00 AM EST Office Visit [facility] MEDICINE [address] [place] [address] Cata Hill DO [address] [place] [address] documented as of this encounter Visit Diagnoses Not on filedocumented in this encounter Additional Health Concerns Assessment Noted Time PHQ-9 Depression Total Score: 7 06/21/19 24 11:35 AM EST documented as of this encounter Care Teams Bed Laborer Relationship Specialty Start Date End Date Cata Hill DO [address] [place] [address] PCP - General Family Medicine 11/13/13 documented as of this encounter
--- OUTSIDE RECORDS SUMMARY | 2025-04-20 12:22 | XMS_ITS | Encounter Summary ---
Author Organization [employer] Address 75 [facility] 7t [place] [address] Care Team Providers Care Ski Topper Name Role Phone Cata Hill DO Primary Care Provider [phone] Reason for Visit * Reason Onset Date Comments New Med Request 08/15/2023 Encounter Details Date Type Department Care Team ([facility] st Contact Info) Description 08/15/[address] [facility] MEDICINE [address] [place], [place] [phone] Cata Hill DO [address] [place], [place] [phone] New Med Request Social History Tobacco Use Types Packs/Day Years [...] encounter Miscellaneous Notes * Telephone Encounter - Dacia Stevenson RN - 08/19/2023 11:05 AM EDT Pt is only looking for anti anxiety medication prior to eye procedure for today 08/19/23. * Telephone Encounter - Cata Hill DO - 08/19/2023 10:04 AM EDT RN note reviewed. Chart reviewed. Is patient looking for anxiety medication prior to the procedure or chronic anxiety medication? * Telephone Encounter - Dacia Stevenson RN - 08/15/2023 11:35 AM EDT TC placed to pt using a [employer] sword swallower. Pt wants to inform PCP of an upcoming eye procedure. Pt is reported to have macular degeneration and also bleeding of the veins of the inner eye. This procedure is scheduled for 08/19/23 at an office on [facility] in [place]. Pt did not know exact location. Pt is requesting a medication to help with some anticipatory anxiety. Forwarding to PCP for review. * Telephone Encounter - Brenardo Rodriguez - 08/15/2023 11:16 AM EDT Tc from patient calling to request a medication to help with anxiety for the upcoming eye injectionon 08/18 documented in this encounter Plan of Treatment Upcoming Encounters Date Type Department Care Team (Late st Contact Info) Description 05/25/2025 10:00 AM EST Office Visit [facility] MEDICINE [address] [place] [address] Cata Hill DO [address] [place] [address] documented as of this encounter Visit Diagnoses Not on filedocumented in this encounter Additional Health Concerns Assessment Noted Time PHQ-9 Depression Total Score: 7 06/21/19 24 11:35 AM EST documented as of this encounter Care Teams Ski Topper Relationship Specialty Start Date End Date Cata Hill DO [address] [place] [address] PCP - General Family Medicine 11/13/13 documented as of this encounter
--- OUTSIDE RECORDS SUMMARY | 2025-04-20 12:22 | XMS_ITS | Encounter Summary ---
Author Organization [employer] Address 75 [facility] 7t [place] [address] Care Team Providers Care Gluing Machine Adjuster Name Role Phone Cata Hill DO Primary Care Provider [phone] Reason for Visit * Reason Comments Med Change Request Encounter Details Date Type Department Care Team ([facility] st Contact Info) Description 08/30/2023 Refill [facility] [address] [place], [place] [phone] Cata Hill DO [address] [place], [place] [phone] Social History Tobacco Use Types Packs/Day Years [...] 05/25/2025 10:00 AM EST Office Visit [facility] MEDICINE [address] [place] [address] Cata Hill DO [address] [place] [address] documented as of this encounter Visit Diagnoses Not on filedocumented in this encounter Additional Health Concerns Assessment Noted Time PHQ-9 Depression Total Score: 7 06/21/19 24 11:35 AM EST documented as of this encounter Care Teams Gluing Machine Adjuster Relationship Specialty Start Date End Date Cata Hill DO [address] [place] [address] PCP - General Family Medicine 11/13/13 documented as of this encounter
--- OUTSIDE RECORDS SUMMARY | 2025-04-20 12:22 | XMS_ITS | Encounter Summary ---
Author Organization [employer] Address [address] [facility] 7t [place] [address] Care Team Providers Care Aviation Maintenance Instructor Name Role Phone SergioCata Primary Care Provider + [phone] Reason for Visit * Reason Comments Med Change Request Encounter Details Date Type Department Care Team ([facility] st Contact Info) Description 07/02/2023 Refill [facility] [address] [place], [place] [phone] Rosetta Alves FNP Social History Tobacco Use Types Packs/Day Years [...] Description 05/25/2025 10:00 AM EST Office Visit [facility] MEDICINE [address] [place] [address] Cata Hill DO [address] [place] [address] documented as of this encounter Visit Diagnoses Not on filedocumented in this encounter Additional Health Concerns Assessment Noted Time PHQ-9 Depression Total Score: 7 06/21/19 24 11:35 AM EST documented as of this encounter Care Teams Aviation Maintenance Instructor Relationship Specialty Start Date End Date Cata Hill DO [address] [place] [address] PCP - General Family Medicine 11/13/13 documented as of this encounter
--- OUTSIDE RECORDS SUMMARY | 2025-04-20 12:22 | XMS_ITS | Encounter Summary ---
Author Organization [employer] Address [address] [facility] 7t [place] [address] Care Team Providers Care Sandwich Wrapper Name Role Phone Haydee Hillfer Primary Care Provider [phone] Encounter Details Date Type Department Care Team (Late st Contact Info) Description 08/08/2023 Orders Only [facility] MEDICINE [address] [place] [address] Provider, MD Apoorva Social History Tobacco Use Types Packs/Day Years [...] Description 05/25/2025 10:00 AM EST Office Visit [facility] [address] [place], [place] [phone] Cata Hill DO [address] [place] [address] documented as of this encounter Procedures Procedure Name Priority Date/Time Associated Diagnosis Comments HM COLONOSCOPY Routine 05/03/2020 3:52 PM EST documented in this encounter Results * Hm Colonoscopy (05/03/2020 3:52 PM EST) us Historical Provider HEALTH MAINTENANCE Final Result documented in this encounter Visit Diagnoses Not on filedocumented in this encounter Additional Health Concerns Assessment Noted Time PHQ-9 Depression Total Score: 7 06/21/19 24 11:35 AM EST documented as of this encounter Care Teams Sandwich Wrapper Relationship Specialty Start Date End Date Cata Hill DO [address] [place] [address] PCP - General Family Medicine 11/13/13 documented as of this encounter
--- OUTSIDE RECORDS SUMMARY | 2025-04-20 12:22 | XMS_ITS | Encounter Summary ---
Author Organization [employer] Address [address] [facility] 7t [place] [address] Care Team Providers Care Consolidator Name Role Phone Cata Hill DO Primary Care Provider [phone] Reason for Visit * Reason Comments Med Refill Encounter Details Date Type Department Care Team ([facility] st Contact Info) Description 05/28/2024 Refill [facility] MEDICINE [address] [place], [place] [phone] Cata Hill DO [address] [place], [place] [phone] Constipation, unspecified constipation type Social History Tobacco Use Types Packs/Day Years [...] 10:00 AM EST Office Visit [facility] MEDICINE [address] [place] [address] Cata Hill DO [address] [place] [address] documented as of this encounter Visit Diagnoses Diagnosis Constipation, unspecified constipation type documented in this encounter Additional Health Concerns Assessment Noted Time PHQ-9 Depression Total Score: 7 06/21/19 24 11:35 AM EST documented as of this encounter Care Teams Consolidator Relationship Specialty Start Date End Date Cata Hill DO [address] [place] [address] PCP - General Family Medicine 11/13/13 documented as of this encounter
--- OUTSIDE RECORDS SUMMARY | 2025-04-20 12:23 | XMS_ITS | Encounter Summary ---
Author Organization [employer] Address 75 [facility] 7t [place] [address] Care Team Providers Care Sharepoint Application Architect Name Role Phone Cata Hill DO Primary Care Provider [phone] Reason for Visit * Reason Onset Date Comments Med Refill 02/08/2025 Encounter Details Date Type Department Care Team ([facility] st Contact Info) Description 02/08/2025 Telephone [facility] MEDICINE [address] [place], [place] [phone] Cata Hill DO [address] [place], [place] [phone] Med Refill Social History Tobacco Use Types [...] Telephone Encounter - Cata Gutierrez LPN - 02/08/2025 12:02 PM EDT Script was sent to [facility] #[id number] on 01/13/25 #30 with 1 refill. * Telephone Encounter - Jannet Parker - 02/08/2025 11:59 AM EDT TC from pt requesting medication refill. Medications needing refill : - busPIRone (Buspar) 5 MG tablet To be sent to: - [facility]/pharmacy #[id number] - [place], [place] - [address] [place] [address] documented in this encounter Plan of Treatment Upcoming Encounters Date Type Department Care Team (Late st Contact Info) Description 05/25/2025 10:00 AM EST Office Visit [facility] MEDICINE [address] [place] [address] Cata Hill DO [address] [place] [address] documented as of this encounter Visit Diagnoses Not on filedocumented in this encounter Additional Health Concerns Assessment Noted Time PHQ-9 Depression Total Score: 7 06/21/19 24 11:35 AM EST documented as of this encounter Care Teams Sharepoint Application Architect Relationship Specialty Start Date End Date Cata Hill DO [address] [place] [address] PCP - General Family Medicine 11/13/13 documented as of this encounter
--- OUTSIDE RECORDS SUMMARY | 2025-04-20 12:23 | XMS_ITS | Encounter Summary ---
Author Organization [employer] Address [address] [place] [address] [address] [place] [address] Care Team Providers Care Machine Tool Rebuilder Name Role Phone Cata Hill DO Primary Care Provider [phone] Reason for Visit * Reason Onset Date Comments Med Refill 10/01/2022 Encounter Details Date Type Department Care Team ([facility] st Contact Info) Description 10/01/2022 Telephone [facility] [address] [place], [place] [phone] Cata Hill DO [address] [place], [place] [phone] Med Refill Social History Tobacco Use Types Packs/Day Years Used Date Smoking Tobacco: Former Cigarettes Passive Smoke Exposure: Current Smokeless Tobacco: Never Alcohol Use Standard Drinks/Week Comments Not Currently 0 (1 standard drink = 0.6 oz pur e alcohol) Depression Answer Date Recorded Patient Health Questionnaire-9 Score 0 07/19/2022 Depression Answer Date Recorded Patient Health Questionnaire-2 Score 0 07/19/2022 Comments Unknown Sex and Gender Information Value Date Recorded Sex Assigned at Female 02/26/2022 10:15 AM EDT Legal Sex Female 10:15 AM EDT Gender Identity Female 02/26/2022 10:15 AM EDT Sexual Orientation Lesbian or Dinero 02/26/2022 10 :15 AM EDT documented as of this encounter Miscellaneous Notes * Telephone Encounter - Karen Corral - 10/01/2022 10:04 AM EDT TC from pt requesting med refill for medication oxyCODONE (Roxicodone) 5 MG immediate release tablet. documented in this encounter Plan of Treatment Upcoming Encounters Date Type Department Care Team (Late st Contact Info) Description 05/25/2025 10:00 AM EST Office Visit [facility] [address] [place] [address] Cata Hill DO [address] [place], [place] [phone] documented as of this encounter Visit Diagnoses Not on filedocumented in this encounter Additional Health Concerns Assessment Noted Time PHQ-9 Depression Total Score: 0 07/20/19 23 11:06 AM EDT documented as of this encounter Care Teams Machine Tool Rebuilder Relationship Specialty Start Date End Date Cata Hill DO [address] [place] [id number] PCP - General Family Medicine 11/13/13 documented as of this encounter
--- OUTSIDE RECORDS SUMMARY | 2025-04-20 12:23 | XMS_ITS | Encounter Summary ---
Author Organization [employer] Address [address] [place] [address] [address] [place] [address] Care Team Providers Care Infection Control Practitioner Name Role Phone Cata Hill DO Primary Care Provider Encounter Details Date Type Department Care Team (Late st Contact Info) Description 08/21/2022 Orders Only [facility] [address] [place], [place] [phone] Cata Gutierrez LPN Social History Tobacco Use Types Packs/Day [...] Description 05/25/2025 10:00 AM EST Office Visit [facility] [address] [place], [place] [phone] Cata Hill DO [address] [place], [place] [phone] documented as of this encounter Visit Diagnoses Not on filedocumented in this encounter Additional Health Concerns Assessment Noted Time PHQ-9 Depression Total Score: 0 07/20/19 23 11:06 AM EDT documented as of this encounter Care Teams Infection Control Practitioner Relationship Specialty Start Date End Date Cata Hill DO [address] [place] [address] PCP - General Family Medicine 11/13/13 documented as of this encounter
--- OUTSIDE RECORDS SUMMARY | 2025-04-20 12:23 | XMS_ITS | Clinical Summary ---
Demographics Address [address] [facility] [address] [place] [address] Work Phone Mobile Phone Home Phone Preferred Language es Marital Status Single Yazdanism Affiliation Unknown Race Other Race Ethnic Group Unknown Author Organization [employer] Address [address] [place] [address] [address] [place] [address] Care Team Providers Care Oxygen Therapy Teacher Name Role Phone SergioMargaritaCata Primary Care Provider [phone] Allergies Active Allergy Reactions Criticality Noted Date Comments Savage Extract 10/09/2022 Citrullus Vulgaris 10/09/2022 Wound Dressings 07/19/2022 Other reaction(s): redness and rash Medications * This document contains information received from the source organization and may not represent a complete record from that organization. Calcium Carb-Cholecalcif mari 600-10 MG-MCG tablet TOME MIYA TABLETA POR V A ORAL TODOS LOS D Active aspirin 81 MG EC tablet take 1 tablet by oral route every day 022 Active ciclopirox (Penlac) 8 % solution Apply topically at bedtime. 6 mL 3 023 Active Diclofenac Sodium 1 % gelIndications:O ther chronic pain APPLY (2 GRAMS) BY TOPICAL ROUTE 2 TIMES EVERY DAY TO THE AFFECTED AREA(S) NEEDED FOR PAIN 100 g 3 023 Active Calcium Carb-Cholecalcif mari 600-10 MG-MCG tabletIndication s:Osteopenia, unspecified location Take 1 tablet by mouth in the morning. TAKE 1 TABLET BY MOUTH EVERY DAY 90 tablet 3 024 Active omega-3 1000 MG capsule capsule TAKE 1 CAPSULE BY MOUTH TWICE A DAY 180 capsule 3 024 Active Blood Pressure kit 1 each 1 (one) time per week. 1 kit 024 Active lidocaine-priloc megan (Emla) 2.5-2.5 % creamIndications :Lumbar radiculopathy APPLY TO LOWER BACK TWICE A DAY IF NEEDED 30 g 1 024 Active losartan (Cozaar) 25 MG tabletIndication s:Primary hypertension Take 1 tablet (25 mg) by mouth Once per day. 30 tablet 11 025 2025 Active aspirin (Aspirin Low Dose) 81 MG EC tablet TOME 1 TABLETA POR VIA ORAL TODOS [place] BL[place] 90 tablet 3 025 Active atorvastatin (Lipitor) 10 MG tablet TOME MIYA TABLETA TODOS [place] AL ACOSTARSE 90 tablet 3 025 Active levothyroxine (Synthroid, Levoxyl) 125 MCG tabletIndication s:Hypothyroidism , unspecified type TAKE 1 TABLET BY MOUTH EVERY DAY 90 tablet 3 025 Active busPIRone (Buspar) 5 MG tablet TAKE 1/2 TABLET BY MOUTH TWICE DAILY 30 tablet 1 025 Active hydrOXYzine HCl (Atarax) 25 MG tablet TAKE 1 TABLET (25 MG) BY MOUTH EVERY 6 (SIX) HOURS IF NEEDED FOR ANXIETY. 360 tablet 025 Active cholecalciferol (D3) 50 MCG (2000 UT) tablet TAKE 1 TABLET BY MOUTH EVERY DAY 90 tablet 3 025 Active diclofenac (Voltaren) 75 MG EC tabletIndication s:Chronic bilateral low back pain, unspecified whether sciatica present TAKE 1 TABLET BY MOUTH EVERY 12 HOURS 60 tablet 3 025 Active buPROPion XL (Wellbutrin XL) 300 MG 24 hr tablet TAKE 1 TABLET BY MOUTH IN THE MORNING 90 tablet 1 025 Active cetirizine (ZyrTEC) 10 MG tabletIndication s:Seasonal allergic rhinitis, unspecified trigger TAKE 1 TABLET BY MOUTH IN THE MORNING 90 tablet 1 025 Active pantoprazole (ProtoNix) 40 MG EC tabletIndication s:Chronic GERD TOME 1 TABLETA POR VIA ORAL TODOS [place] ANTES DEL DESAYUNO 90 tablet 1 025 Active [facility] Senna 8.6 MG tablet TAKE 2 TABLETS BY ORAL ROUTE AT BEDTIME NEEDED FOR CONSTIPATION 180 tablet 1 025 Active Calcium Carb-Cholecalcif mari 600-10 MG-MCG tablet Take 1 tablet by mouth Once per day. 90 tablet 3 Active albuterol 108 (90 Base) MCG/ACT inhalerIndicatio ns:History of tobacco use INHALAR DANDO DOS SOPLIDOS POR VIA ORAL CADA SEIS HORAS CUANDO SEA NECESARIO 18 g 1 025 Active baclofen (Lioresal) 20 MG tabletIndication s:Chronic pain syndrome TAKE 1 TABLET BY MOUTH THREE TIMES A DAY IF NEEDED FOR PAIN OR SPASMS 60 tablet Active docusate sodium (Colace) 100 MG capsuleIndicatio ns:Constipation, unspecified constipation type TAKE 1 CAPSULE BY MOUTH IN THE MORNING AND EVENING IF NEEDED FOR CONSTIPATION 180 capsule 1 Active gabapentin (Neurontin) 300 MG capsuleIndicatio ns:Other chronic pain TOME 2 CAPSULAS POR VIA ORAL YAZAN VECES AL PAULO 180 capsule 3 Active escitalopram (Lexapro) 10 MG tablet TOME 1 TABLETA POR VIA ORAL TODOS [place] 90 tablet Active pantoprazole (ProtoNix) 40 MG EC tabletIndication s:Chronic GERD TAKE 1 TABLET BY MOUTH EVERY MORNING BEFORE BREAKFAST 90 tablet 1 025 2024 Discontinued Senna-Time 8.6 MG tablet TAKE 2 TABLETS BY ORAL ROUTE AT BEDTIME NEEDED FOR CONSTIPATION 180 tablet 1 025 2024 Discontinued docusate sodium (Colace) 100 MG capsuleIndicatio ns:Constipation, unspecified constipation type TAKE 1 CAPSULE BY MOUTH IN THE MORNING AND EVENING IF NEEDED FOR CONSTIPATION 180 capsule 1 025 2024 Discontinued gabapentin (Neurontin) 300 MG capsuleIndicatio ns:Other chronic pain TAKE 2 CAPSULES BY MOUTH THREE TIMES A DAY 180 capsule 3 025 2024 Discontinued escitalopram (Lexapro) 10 MG tablet TOME 1 TABLETA POR VIA ORAL TODOS [place] 90 tablet 025 2024 Discontinued baclofen (Lioresal) 20 MG tabletIndication s:Chronic pain syndrome TAKE 1 TABLET BY MOUTH THREE TIMES A DAY IF NEEDED FOR PAIN OR SPASMS 60 tablet 025 2024 Discontinued albuterol 108 (90 Base) MCG/ACT inhalerIndicatio ns:History of tobacco use INHALE DANDO DOS SOPLIDOS POR VIA ORAL CADA SEIS HORAS CUANDO SEA NECESARIO 18 g 1 025 2024 Discontinued baclofen (Lioresal) 20 MG tabletIndication s:Chronic pain syndrome TAKE 1 TABLET BY MOUTH THREE TIMES A DAY IF NEEDED FOR PAIN OR SPASMS 60 tablet 025 2024 Discontinued Active Problems Problem Noted Date Diagnosed Date Diverticulosis 04/14/2025 Overview (04/14/2025): history of adenomatous colon polyps , 2020 Colonoscopy -no polyps, however diverticulosis and moderate hemorrhoids were -noted. Will put recall for 5 year repeat colonoscopy History of cervical cancer 04/14/2025 Status post [facility] 04/14/2025 Generalized anxiety disorder with panic attacks 11/18/2023 Assessment & Plan (01/27/2024 3:10 PM EDT): During IBH Consult Albertina presenting with excessive worry/anxiety, difficulty controlling worry, anxiety/worry associated to restlessness and/or feeling keyed-up/On edge , easily fatigued , difficulty concentrating and/or mind going blank , irritability, and sleep disturbance difficulty falling asleep, Fear , and sense of dread and Recurrent panic attacks (abrupt surge of intese cynthia or discomfort that reaches peak within minutes and during which time the following occur (4 or more) palpitations, sweating, trembling/shaking, sensation of shortness of breath/smothering, Chest pain/discomfort, dizzy/unsteady/light-headed/faint, numbness/tingling, fear of losing control, fear of dying, At least one of the attacks has been followed by 1 month of Persistent concern/worry of panic attacks or their consequences ; for a period of 6-12 mo, for some symptoms in the context of unable to identify significant stressors. During today's consult patient reports her anxiety has been manageable with medication. She's also incorporating breathing exercises and mindfulness techniques to decrease symptoms. She reports experiencing panix sxs but not as frequent as she used to. Pt didn't connect with self-referrals (recommended during last appointment). clinician will do referral for OP individual therapy. clinician engaged pt with active/reflective listening and validation of emotions. Recommendations made around practicing grounding techniques when patient is not feeling anxious and engaged pt with breathing exercises during session. Assessment & Plan (12/27/2023 10:03 AM EDT): clinician engaged pt with active/reflective listening and validation of emotions. PCP will increase medication for anxiety. Recommendations made around practicing grounding techniques when patient is not feeling anxious and engaged pt with breathing exercises during session. Pt participated in coping techniques and will try it at home. clinician will follow-up w pt during next medical appointment to assess sxs and referrals. Assessment & Plan (11/28/2023 9:52 AM EDT): During IBH Consult Albertina presenting with excessive worry/anxiety, difficulty controlling worry, restless/keyed up/On edge, easily fatigued, difficulty concentrating/Mind going blank , irritability, muscle tension, and sleep disturbance difficulty falling asleep and difficulty staying asleep and palpitations, sweating, trembling/shaking, sensation of shortness of breath/smothering, feeling of choking, Chest pain/discomfort, dizzy/unsteady/light-headed/faint, numbness/tingling, fear of losing control, fear of dying, Persistent concern/worry of panic attacks or their consequences; for a period of 0-6 mo, for all symptoms in the context of unable to identify significant stressors. During today's consult, Albertina endorsed panic symptoms. She was able to self-regulate by practicing breathing techniques with clinician during session. No particular stressor associated with sxs per patient's report. Not knowing the root of the problem leads to more anxiety. Her prerna and sense of spirituality helps Albertina to navigate through difficult times. Currently on medication for anxiety, pt reports no improvement and would like to increase dose. She hasn't being sleeping well, her appetite is also off. Pt prefers to utilize the [facility] programs for same-day appointments. PLAN: (check all that apply) Behavioral Health Integration Plan Internal Follow up with [facility] Patient Self Plan Patient to utilize skills provided in intervention , Patient to reach out to [facility] team as needed, Comply with medication , Patient to engage in OP therapy , and Patient to reach out to [facility] as needed Self-referred to [facility] for sooner appointments due to impact of sxs on patient's daily functioning. Assessment & Plan (11/18/2023 12:03 PM EDT): During IBH Consult Albertina presenting with excessive worry/anxiety, difficulty controlling worry, restless/keyed up/On edge, easily fatigued, difficulty concentrating/Mind going blank , irritability, muscle tension, and sleep disturbance difficulty falling asleep and difficulty staying asleep and palpitations, sweating, trembling/shaking, sensation of shortness of breath/smothering, feeling of choking, Chest pain/discomfort, numbness/tingling, fear of dying, Persistent concern/worry of panic attacks or their consequences; for a period of 0-6 mo, for all symptoms in the context of unable to identify significant stressors. Albertina endorsed severe panic sxs, she was unable to identify stressor or trigger. She has difficulty to share emotions with others. Her prerna and sense of spirituality helps Albertina to navigate through difficult times. Currently on medication for anxiety, pt reports no improvement and would like to increase dose. She hasn't being sleeping well, her appetite is also off. Symptoms have been worsening. During today's consult Albertina was engages with active, reflective listening and validation of emotions. We practiced breathing and grounding techniques during call. Pt was able to self-regulate and bring attention/senses to the present moment. Albertina will see her PCP this Tuesday 11/21 to request med adjustment. Clinician offered external referrals, pt prefers to wait until day of appointment to make a decision. clinician reviewed and assessed for risks and protective factors using open-ended questions. PLAN: (check all that apply) Behavioral Health Integration Plan Internal Follow up with [facility] Patient Self Plan Patient to utilize skills provided in intervention , Patient to reach out to [facility] team as needed, Comply with medication , and Patient to reach out to [facility] as needed. Pt has upcoming appointment with PCP this Tuesday 11/21. Pt prefers to wait until day of appointment to decide if OP referral is needed. Depression 06/12/2023 BMI 26.0-26.9,adult 07/19/2022 History of COVID-19 07/19/2022 Fatty liver 07/19/2022 Obstructive sleep apnea 07/19/2022 Chronic gastroesophageal reflux disease 07/20/19 Chronic low back pain 07/19/2022 Pulmonary nodule 07/19/2022 Age-related macular degeneration 05/24/2016 Chronic constipation 03/11/2015 Chronic neck pain 03/11/2015 Hyperlipidemia 03/11/2015 Hypothyroidism 03/11/2015 Tubular adenoma of colon 03/11/2015 Encounters Date Type Department Care Team Description 04/17/2025 Refill [facility] [address] [facility] [place] [address] Cata Hill DO Other chronic pain 04/14/2025 10:45 AM EST Procedure Visit [facility] [address] [place] [address] Cata Hill DO Encounter for annual routine gynecological examination (Primary Dx) 04/14/2025 Orders Only [facility] [address] [facility] [place] [address] Cata Hill DO 04/14/2025 Travel 04/12/2025 Telephone [facility] [address] [facility] [place] [address] Cata Hill DO Chart Prep 04/11/2025 Refill [facility] [address] [facility] [place] [address] Name, MD Jorge Constipation, unspecified constipation type 04/08/2025 Refill [facility] [address] [place] [address] Cata Hill DO Chronic pain syndrome 04/02/2025 Refill [facility] [address] [facility] [place] [address] Cata Hill DO History of tobacco use 03/23/2025 Travel 03/22/2025 Refill [facility] [address] [facility] [place] [address] Cata Hill DO Chronic pain syndrome 03/22/2025 Telephone [facility] [address] [place] [address] Cata Hill DO March03/20/2025 Refill [facility] [address] [place] [address] Cata Hill DO Chronic GERD 03/13/2025 Refill [facility] [address] [place] [address] Cata Hill, Seasonal allergic rhinitis, unspecified trigger 03/09/2025 Refill [facility] [address] [place] [address] [facility] Chronic bilateral low back pain, unspecified whether sciatica present 02/23/2025 Refill [facility] [address] [place] [address] Cata Hill DO 02/10/2025 Refill [facility] [address] [place] [address] [facility] 02/08/2025 Telephone [facility] [address] [place] [address] Cata Hill DO Med Refill 02/06/2025 Refill [facility] [address] [place] [address] Cata Hill DO 02/06/2025 Refill [facility] [address] [place] [address] Cata Hill DO History of tobacco use 01/31/2025 Refill [facility] [address] [place] [address] Cata Hill, Chronic pain syndrome from Last 3 Months Immunizations Immunization Administration Dates Next Due Hep B, adult 11/29/2017,05/16/2017,03/14/2017 Influenza injectable quadriv alent IIV4 with preservative 01/15/2019 Influenza injectable quadriv alent preservative free 01/04/2023,01/26/2022,01/16/2021,02/21,03/01/2018,01/24/2017,01/30/2016 ,01/21/2015,02/15/2014 Influenza, High Dose Seasona l, Preservative Free 03/12/2024 Influenza, Split (incl. gala fied surface antigen) 05/07/2013,12/25/2011 Moderna Covid-19 Vaccine 12+ 06/20/2021 Moderna Covid-19 Vaccine 6+ Bivalent 07/19/2022 Pfizer Covid-19 Vaccine 12+ 06/20/2021 Pneumococcal Polysaccharide PPSV23 11/04/2014 TD (adult), 2 Lf tetanus tox oid, preservative free, adsorbed 05/30/2009,01/13/1998 Tdap 02/13/2016 Social History Tobacco Use Types Packs/Day Years Used Date Smoking Tobacco: Former Cigarettes Passive Smoke Exposure: Past Smokeless Tobacco: Never Tobacco Cessation:Counseling Given: Not Answered Comments:31 years ago 01/04/2023 Alcohol Use Standard Drinks/Week Comments Not Currently 0 (1 standard drink = 0.6 oz pur e alcohol) Depression Answer Date Recorded Patient Health Questionnaire-9 Score 6 04/14/2025 Patient Health Questionnaire-9 Score 6 04/14/2025 Last PHQ-9: Questionnaire Data Not on file 1 06/15/2024 Housing Stability Answer Date Recorded What is your housing situation today? I have levi zapata 04/14/[address] you li ve. Do you have problems with any of the following? None of the above 04/14/2025 Food Insecurity Answer Date Recorded Within the past 12 months, y ou worried that your food would run out before you got money to buy more: Never True 04/14/2025 Within the past 12 months,th e food you bought just didn't last and you didn't have enough money to get more: Never True Transportation Answer Date Recorded In the past 12 months, has l ack of transportation kept you from medical appts, meetings, work or from getting things needed for daily living? No 04/14/2025 Utilities Answer Date Recorded In the past 12 months, has t he electric, gas, oil or water company threatened to shut off services in your home? No 04/14/2025 Depression Answer Date Recorded Patient Health Questionnaire-2 Score 3 04/14/2025 Internet Access Answer Date Recorded Internet Access Q1 Yes 04/14/2025 Internet Access Q2 Not on file 04/14/2025 Comments Unknown Sex and Gender Information Value Date Recorded Sex Assigned at Female 02/26/2022 10:15 AM EDT Legal Sex Female 10:15 AM EDT Gender Identity Female 02/26/2022 10:15 AM EDT Sexual Orientation Lesbian or Dinero 02/26/2022 10 :15 AM EDT Last Filed Vital Signs Vital Sign Reading Time Taken Comments Blood Pressure 124/80 04/14/2025 10:46 AM EST Pulse 96 04/14/2025 10:46 AM EST Temperature 37.3 C (99.1 F) 04/14/2025 10:46 AM EST Respiratory Rate 18 04/14/2025 10:46 AM EST Oxygen Saturation 98% 04/14/2025 10:46 AM EST Inhaled Oxygen Concentration - - Weight 86.9 kg (191 lb 9.6 oz) 04/14/2025 10:46 AM EST Height 180.3 cm (5' 11 ) 04/14/2025 10:46 AM EST Body Mass Index 26.72 04/14/2025 10:46 AM EST Plan of Treatment Upcoming Encounters Date Type Department Care Team (Late st Contact Info) Description 05/25/2025 10:00 AM EST Office Visit [facility] [address] [place] [address] Cata Hill DO [address] [place], [place] [id number] Health Maintenance Due Date Last Done Comments CT Colonography 1959 FIT DNA/Cologuard 1959 FIT 1960 FOBT 1960 Sigmoidoscopy 1960 Hepatitis C Screening 1977 Hepatitis A Vaccines (1 of 2 - Risk 2-dose series) 1978 RSV Patients and Patients Aged 60 years or older (1 - Risk 50-74 years 1-dose series) 2009 Zoster Vaccines (1 of 2) 2009 Pneumococcal Vaccine: 50+ Years (2 of 2 - PCV) 11/05/2015 11/04/2014 COVID-19 Vaccine ( season) 2024 07/19/2022, 06/20/2021, 06/20/2021, Additional history exists Influenza Vaccine (#1) 2024 4, 01/04/2023, 01/26/2022, Additional history exists Colonoscopy 05/03/2025 05/03/2020 Colorectal Cancer Screening 05/03/2025 Alcohol/Substance Use Screening 06/26/2025 06/26/2024 DTaP/Tdap/Td Vaccines (2 - Td or Tdap) 02/12/2026 02/13/2016, 05/30/2009, 01/13/1998 Depression Screening 04/14/2026 04/14/2025, 04/14/20 25 Mammogram 04/14/2026 04/14/2025, 03/29, 10/08/2023, Additional history exists SDOH Screening 04/14/2026 04/14/2025 Tobacco Screening 04/14/2026 04/14/2025 Pap Smear 04/14/2028 04/14/2025, 01/26/2022 Lipid Panel 11/21/2028 11/22/2023, 0608/2022, 10/20/2021, Additional history exists Hepatitis B Vaccines Completed 11/29/2017, 05/16/2017, 03/14/2017 HPV/Cotest Discontinued 04/14/2025, 12/30, 04/20/2016 HIB Vaccines Aged Out No longer eligi ble based on patient's age to complete this topic HPV Vaccines Aged Out No longer eligi ble based on patient's age to complete this topic IPV Vaccines Aged Out No longer eligi ble based on patient's age to complete this topic Meningococcal B Vaccine Aged Out No l onger eligible based on patient's age to complete this topic Meningococcal Vaccine Aged Out No chayito reggie eligible based on patient's age to complete this topic RSV under 20 months Aged Out No longe r eligible based on patient's age to complete this topic Rotavirus Vaccines Aged Out No longer eligible based on patient's age to complete this topic Procedures Procedure Name Priority Date/Time Associated Diagnosis Comments BI MAMMOGRAM SCREENING TOMOSYNTHESIS BILATERAL Routine 04/14/2025 12:15 PM EST PAP SMEAR Routine 04/14/2025 12:00 AM EST Encounter for annual routine gynecological examination HPV DNA, LOW/HIGH RISK Routine 04/14/2025 12:00 AM EST LIPID PANEL, STANDARD Routine 11/22/2023 1:28 PM EDT Anxiety Unintentional weight loss HM COLONOSCOPY Routine 05/03/2020 3:52 PM EST from Last 3 Months or Most Recently Relevant to Health Maintenance Results * BI Mammogram Screening Tomosynthesis Bilateral (04/14/2025 12:15 PM EST) Anatomical Region Laterality Modality Breast Bilateral Mammography 04/14/2025 12:1 5 PM EST Narrative 04/14/2025 2:18 PM EST [facility] [address] [place] [address] Mammography Report Signed Patient: Albertina Oliver MR#: [id number] : 1960 Acct:[id number] Age/Sex: 65 / F ADM Date: 04/14/25 Loc: HO.MAMMO Attending Dr: Cata Hill DO Ordering Physician: Cata Hill DO Results: 0I ncomplete- Need Additional Imaging Evaluation Date of Service: 04/14/25 Follow Up: Additional Imagi ng Procedure(s): MM tomosynthesis screening BI Accession Number(s): [id number] cc: Cata Hill DO Reason For Exam: SCREEN EXAMINATION: MM SCREENING DIGITAL BREAST TOMOSYNTHESIS, BILATERAL CLINICAL INFORMATION: Screening. Asymptomatic. COMPARISON: Mammography: Comparison is made with available priors TECHNIQUE: Digital breast mammography with tomosynthesis is performed in both the craniocaudal and mediolateral oblique views along with computer-aided detection (CAD). FINDINGS: The breasts are heterogeneously dense, which may obscure small masses. Bilateral circumscribed oval masses which wax and wane consistent with benign fibrocystic changes. Right: Asymmetry superior breast middle depth on MLO view. No suspicious calcifications or other abnormal findings. Left: There are no significant masses, abnormal calcifications, or other abnormalities. MM/MM tomosynthesis screening BI IMPRESSION: Additional imaging is recommended ASSESSMENT: BI-RADS Category 0: Incomplete - Need additional Imaging Evaluation RECOMMENDATION: 1. Additional views of the right breast. 2. Targeted ultrasound if warranted after review of the additional views. 3. Radiology department staff will contact the patient for additional imaging. Additional Imaging required Electronically signed by: Janneth Pringle DO 04/14/2025 02:15 PM EST Dictated By: Janneth Pringle DO Signed By: <Electronically signed by Janneth Pringle DO in OV> 04/14/25 1415 DD/ 1215 TD/TT: 04/14/25 1245 Engineer Exhauster: Procedure Note Donotuseinterpreter, Image - 04/14/2025 [facility] [address] [place] [address] Mammography Report Signed Patient: Isael Oliver#: [id number] : 9Acct:[id number] Age/Sex: 65 / FADM Date: 04/14/25 Loc: HO.MAMMO Attending Dr: Cata Hill DO Ordering Physician: Cata Hillults: 0I ncomplete- Need Additional Imaging Evaluation Date of Service: 04/14/25Follow Up: Additional Imagi ng Procedure(s): MM tomosynthesis screening BI Accession Number(s): [id number] cc: Cata Hill DO Reason For Exam: SCREEN EXAMINATION: MM SCREENING DIGITAL BREAST TOMOSYNTHESIS, BILATERAL CLINICAL INFORMATION: Screening. Asymptomatic. COMPARISON: Mammography: Comparison is made with available priors TECHNIQUE: Digital breast mammography with tomosynthesis is performed in both the craniocaudal and mediolateral oblique views along with computer-aided detection (CAD). FINDINGS: The breasts are heterogeneously dense, which may obscure small masses. Bilateral circumscribed oval masses which wax and wane consistent with benign fibrocystic changes. Right: Asymmetry superior breast middle depth on MLO view. No suspicious calcifications or other abnormal findings. Left: There are no significant masses, abnormal calcifications, or other abnormalities. MM/MM tomosynthesis screening BI IMPRESSION: Additional imaging is recommended ASSESSMENT: BI-RADS Category 0: Incomplete - Need additional Imaging Evaluation RECOMMENDATION: 1. Additional views of the right breast. 2. Targeted ultrasound if warranted after review of the additional views. 3. Radiology department staff will contact the patient for additional imaging. Additional Imaging required Electronically signed by: Janneth Pringle DO 04/14/2025 02:15 PM EST RP Dictated By: Janneth Pringle DO Signed By: <Electronically signed by Janneth Pringle DO in OV> 04/14/25 1415 DD/ 1215 TD/TT: 04/14/25 1245 Engineer Exhauster: us Cata Hill DO IMG BI PROCEDURES Final Resu lt * HPV DNA, Low/High Risk (04/14/2025 12:00 AM EST) HPV High Risk Negative Negative [facility] HPV Genotype 16 Negative Negative [facility] HPV Genotype 18 Negative Negative [facility] Comment:HPV testing performe d at [facility] (CLIA#[id number]), [address] [place] [address].Testing for HPV was performed using the Eri JOSETTE 6800system. The presence of HPV in the female genital tract isassociated with a number of diseases, including cervicalcarcinoma. The HPV DNA high risk pool tests for HPV 31, 33,35, 39, 45, 51, 52, 56, 58, 59, 66 and 68. The testing forHPV 16 and 18 genotypes has also been performed. A positiveresult indicates detection of nucleic acid sequences fromone or more subtypes, whereas a negative result indicatessuch sequences were not detected. 04/14/2025 04/15/2025 9:0 3 AM EST us Cata Hill DO LAB BLOOD ORDERABLES Final R esult [facility] [address] [place] [phone] * Pap Smear (04/14/2025 12:00 AM EST) Swab Vaginal structure / Unknown 04/14/2025 04/15/2025 9:03 AM EST Narrative [facility] - 04/19/2025 11:18 AM EST ----- ------- Name: Albertina Oliver Age/Sex: 65/F : 1960 Unit#: [id number] Attend Dr: Re04/14/25 Status: PRE REF Location: [facility] Disch: ----- ------- SPEC : [id number] RECD: 04/15/25 STATUS: DIDIER AVALOS NUM: [id number] JOSE LUIS: 04/14/25-[address]: Cata Hill DO ENTERED: 04/15/25 SP TYPE: Pap [facility] DR: ORDERED: Pap Smear Interpretation General Category: Negative for intraepithelial lesion/malignancy. Adequacy: Endocervical component present. Interpretation: Inflammation with associated cellular changes. No endocervical cells seen. HPV High Risk: Negative HPV Genotyping 16: Negative HPV Genotyping 18: Negative Clinical Information LMP: Menopausal Previous PAP test: 2021, HPV neg Material Received ThinPrep-Cervical PAP Disclaimer As of February 19, 2024, the technical services to include automated prescreening performed by the ThinPrep Imaging System, PAP screening and HPV testing will be performed at [facility] (CLIA #[id number]), [address] [place] [address]. Testing for HPV was performed using the Eri JOSETTE 6800 system. The presence of HPV in the female genital tract is associated with a number of diseases, including cervical carcinoma. The HPV DNA high risk pool tests for HPV 31, 33, 35, 39, 45, 51, 52, 56, 58, 59, 66 and 68. The testing for HPV 16 and 18 genotypes has also been performed. A positive result indicates detection of nucleic acid sequences from one or more subtypes, whereas a negative result indicates such sequences were not detected. All professional services are performed by [facility] ([address] [place], [place] [id number]; ; CLIA #[id number]). The PAP Test is a screening procedure with the inherent possibility of both false negative and false positive results. Results should be interpreted in the context of historic and current clinical findings. Reliability of the PAP Test is enhanced by performing the test on a regular repetitive basis. CONTINUED ON NEXT PAGE ----- ------- Name: Albertina Oliver Age/Sex: 65/F : 1960 Unit#: [id number] Amira Dr: Re04/14/25 Status: PRE REF Location: [facility] Disch: ----- ------- SPEC : [id number] RECD: 04/15/25 STATUS: DIDIER AVALOS NUM: [id number] JOSE LUIS: 04/14/25-[address]: Cata Hill DO ENTERED: 04/15/25-36 SP TYPE: Pap Smr OT DR: ORDERED: Pap Smear ----- ------- Signed (signature on file) SHANE Burgess (ASCP) 04/19/25 1118 ----- ------- END OF REPORT Cata Hill DO LAB CYTOLOGY ORDERABLES Lissett l Result [facility] [address] [place] [phone] * (ABNORMAL) Lipid Panel, Standard (11/22/2023 1:28 PM EDT) Triglycerides 167(H) <150 mg/dL [facility] Comment:Desirable Triglyceri de: less than 150 mg/dLBorderline High Triglyceride 150-199 mg/dLHigh Triglyceride: 200-499 mg/dLVery High Triglyceride: greater than or equal to 5OO mg/dL Cholesterol 143 <200 mg/dL [facility] Comment:Desirable Cholestero l: less than 200 mg/dLBorderline High Cholesterol: 200-239 mg/dLHigh Cholesterol: greater than 239 mg/dL LDL Cholesterol Calculated 72 <100 mg/dL [facility] Comment:Desirable LDL: less than 100 mg/dLNear Optimal/Above Optimal LDL: 110- 129 mg/dLBorderline High LDL: 130-159 mg/dLHigh LDL: 160-189 mg/dLVery High LDL: greater than or equal to 190 mg/dL HDL Cholesterol 38(L) >40 mg/dL [facility] Comment:Desirable HDL: great er than 40 mg/dL Note: This HDL assay may give artificially low results in patients with liver disease. Blood Venous blood specimen / Unknown 11/22/2023 1:28 PM EDT 11/22/2023 3:52 PM EDT Cata Hill DO LAB BLOOD ORDERABLES Final R esult [facility] [address] [place] [address] [phone] * Hm Colonoscopy (05/03/2020 3:52 PM EST) Historical Provider HEALTH MAINTENANCE Final Result from Last 3 Months or Most Recently Relevant to Health Maintenance Insurance [facility] [employer] (O D-SNP) SUZIE HASSAN [id number] Care Teams Oxygen Therapy Teacher Relationship Specialty Start Date End Date Cata Hill DO [address] [place] [phone] PCP - General Family Medicine 11/13/13
--- OUTSIDE RECORDS SUMMARY | 2025-04-20 12:23 | XMS_ITS | Encounter Summary ---
Author Organization [employer] Address [address] [place] [address] [address] [place] [address] Care Team Providers Care Ground Intelligence Officer Name Role Phone Cata Hill DO Primary Care Provider [phone] Encounter Details Date Type Department Care Team (Late st Contact Info) Description 05/31/2022 Orders Only [facility] MED & PEDS [address] [place] [address] Cata Gutierrez LPN Social History Tobacco Use [...] Visit [facility] MEDICINE [address] [place] [address] Cata Hill DO [address] [place] [address] documented as of this encounter Visit Diagnoses Not on filedocumented in this encounter Care Teams Ground Intelligence Officer Relationship Specialty Start Date End Date Cata Hill DO [address] [place] [address] PCP - General Family Medicine 11/13/13 documented as of this encounter
--- OUTSIDE RECORDS SUMMARY | 2025-04-20 12:23 | XMS_ITS | Encounter Summary ---
Author Organization [employer] Address [address] [place] [address] 7t [place] [address] Care Team Providers Care Quill Cleaning Machine Operator Name Role Phone Cata Hill DO Primary Care Provider Encounter Details Date Type Department Care Team (Late st Contact Info) Description 09/10/2022 Orders Only [facility] [address] [place] [address] [phone] Ca Orozco LPN Social History Tobacco Use [...] 05/25/2025 10:00 AM EST Office Visit [facility] [address] [place] [address] [phone] Cata Hill DO [address] [place], [place] [phone] documented as of this encounter Visit Diagnoses Not on filedocumented in this encounter Additional Health Concerns Assessment Noted Time PHQ-9 Depression Total Score: 0 07/20/19 23 11:06 AM EDT documented as of this encounter Care Teams Quill Cleaning Machine Operator Relationship Specialty Start Date End Date Cata Hill DO [address] [place] [address] PCP - General Family Medicine 11/13/13 documented as of this encounter
--- OUTSIDE RECORDS SUMMARY | 2025-04-20 12:23 | XMS_ITS | Encounter Summary ---
Author Organization [employer] Address [address] [facility] [address] [place] [address] Care Team Providers Care Drink Box Mechanic Name Role Phone Cata Hill DO Primary Care Provider [phone] Reason for Visit * Reason Comments Med Refill Encounter Details Date Type Department Care Team ([facility] st Contact Info) Description 04/17/2025 Refill [facility] [address] [place], [place] [phone] Cata Hill DO [address] [place], [place] [phone] Other chronic pain Social History Tobacco Use Types Packs/Day Years Used Date Smoking Tobacco: Former Cigarettes Passive Smoke Exposure: Past Smokeless Tobacco: Never Comments:31 years ago 01/05/20 23 Alcohol Use Standard Drinks/Week Comments Not Currently [...] Description 05/25/2025 10:00 AM EST Office Visit [facility] [address] [place] [address] Cata Hill DO [address] [place] [address] documented as of this encounter Visit Diagnoses Diagnosis Other chronic pain documented in this encounter Additional Health Concerns Assessment Noted Time PHQ-9 Depression Total Score: 6 04/14/20 25 11:35 AM EST documented as of this encounter Care Teams Drink Box Mechanic Relationship Specialty Start Date End Date Caat Hill DO [address] [place] [address] PCP - General Family Medicine 11/13/13 documented as of this encounter
--- OUTSIDE RECORDS SUMMARY | 2025-04-20 12:23 | XMS_ITS | Encounter Summary ---
Author Organization [employer] Address [address] [place] [address] 7[address] [place] [address] Care Team Providers Care Civil Engineering Project Manager Name Role Phone Cata Hill DO Primary Care Provider Encounter Details Date Type Department Care Team (Late st Contact Info) Description 07/09/2022 Orders Only [facility] CH[facility] MED & PEDS [address] [place] [address] Cata Gutierrez LPN Social History Tobacco Use [...] Description 05/25/2025 10:00 AM EST Office Visit [facility] MEDICINE [address] [place] [address] Cata Hill DO [address] [place] [address] documented as of this encounter Visit Diagnoses Not on filedocumented in this encounter Care Teams Civil Engineering Project Manager Relationship Specialty Start Date End Date Cata Hill DO [address] [place] [address] PCP - General Family Medicine 11/13/13 documented as of this encounter
--- OUTSIDE RECORDS SUMMARY | 2025-04-20 12:23 | XMS_ITS | Encounter Summary ---
Author Organization [employer] Address [address] [facility] [address] [place] [address] Care Team Providers Care Corporate Law Specialist Name Role Phone Cata Hill DO Primary Care Provider [phone] Reason for Visit * Reason Comments Med Refill Encounter Details Date Type Department Care Team ([facility] st Contact Info) Description 12/31/2023 Refill [facility] [address] [place], [place] [phone] Cata Hill DO [address] [place], [place] [phone] History of tobacco use; Chronic GERD Social History Tobacco Use Types Packs/Day Years [...] Description 05/25/2025 10:00 AM EST Office Visit [facility] [address] [place] [address] Cata Hill DO [address] [place] [address] documented as of this encounter Visit Diagnoses Diagnosis History of tobacco use Personal history of tobacco use, presenting hazards to health Chronic GERD documented in this encounter Additional Health Concerns Assessment Noted Time PHQ-9 Depression Total Score: 7 06/21/19 24 11:35 AM EST documented as of this encounter Care Teams Corporate Law Specialist Relationship Specialty Start Date End Date Cata Hill DO [address] [place] [address] PCP - General Family Medicine 11/13/13 documented as of this encounter
--- OUTSIDE RECORDS SUMMARY | 2025-04-20 12:23 | XMS_ITS | Encounter Summary ---
Author Organization [employer] Address [address] [place] [address] [address] [place] [address] Care Team Providers Care Breast Buffer Name Role Phone Cata Hill DO Primary Care Provider [phone] Reason for Visit * Reason Onset Date Comments Med Refill 08/30/2022 Encounter Details Date Type Department Care Team ([facility] st Contact Info) Description 08/30/2022 Telephone [facility] MED[facility]INE [address] [place], [place] [phone] Cata Hill DO [address] [place], [place] [phone] Med Refill Social History Tobacco Use Types [...] encounter Miscellaneous Notes * Telephone Encounter - Leonela Garcianez - 08/30/2022 3:10 PM EDT Tc from patient requesting a med refill on medication oxycodone 5 mg. Welding Tester doesn't see medicationon epic med list. PCP Dr. Hill documented in this encounter Plan of Treatment Upcoming Encounters Date Type Department Care Team (Late st Contact Info) Description 05/25/2025 10:00 AM EST Office Visit [facility] [address] [place] [address] Cata Hill DO [address] [place] [address] documented as of this encounter Visit Diagnoses Not on filedocumented in this encounter Additional Health Concerns Assessment Noted Time PHQ-9 Depression Total Score: 0 07/20/19 23 11:06 AM EDT documented as of this encounter Care Teams Breast Buffer Relationship Specialty Start Date End Date Cata Hill DO [address] [place] [phone] PCP - General Family Medicine 11/13/13 documented as of this encounter
== END 2025-04-15 09:04 ==
LOC: HO.LNP 09:03
PROVIDERS: Visit Provider Family Medicine
DX: Z01.419 Encounter for gynecological examination (general) (routine) without abnormal findings (principal)
CPT/HCPCS: 88175